=== PATIENT | male | born 1955 | race Caucasian/White ===

== ENCOUNTER 2019-07-31 06:22 | Day surgery (SDC) | payer MEDICARE, MEDICAID, SELFPAY ==
[2019-07-29 12:23] VITALS: BMI 37.9
[2019-07-31 06:44] VITALS: BP 119/91; PULSE 62; RESP 18; TEMP 36.4; O2SAT 96
[2019-07-31] MEDS: sodium chloride 0.9% 1,000 ML 30 ML IV (06:59)
--- NOTE | 2019-07-31 07:00 | ANES.PREANE2 ---
Pre-Anesthetic Assessment Pre-Anesthetic Assessment: Height/Weight: Height 1.7 m Weight 109.769 kg Temp Pulse Resp BP Pulse Ox 97.6 F 62 18 119/91 96 07/31/19 06:44 07/31/19 06:44 07/31/19 06:44 07/31/19 06:44 07/31/19 06:44 Proposed Procedure: Operation Date: 07/31/19 08:05 Proposed Procedures p Colonoscopy(Not Applicable) - Naeem Ybarra MD Last intake: Intake Last Liquid Date 07/30/19 Last Liquid Time 20:00 Last Solid Date 07/29/19 Last Solid Time 16:00 Social: Social History: Tobacco (CHEWS) and No alcohol Exam: Pre-Anes Outpt Exam: alert, oriented x 3, clear to auscultation bilaterally and regular rate & rhythm Airway: Submandibular: WNL Cervical ROM: WNL MP: 2 Dentition: Other (very poor dentation) History/ROS: No significant history except as noted Pulmonary: Pulmonary: None reported CV/HEM: CV/HEM: HTN : : None reported Hepatic: Hepatic: None reported GI: GI: GERD (occ) Metabolic: Metabolic: DM and Morbid obesity Musc/skel: Musc/skel: Lower Back Pain, OA/DJD and Weakness (right leg) Neuropsych: Neuropsych: None reported Anesthetic Plan: ASA status: 3 Anesthesia: Anesthesia Evaluation and MAC Risk of > 500 ml blood loss (7ml/kg in children): No Meds/Allergies Current Medications: Current Medications Generic Name Dose Route Start Last Admin Trade Name Freq PRN Reason Stop Dose Admin Sodium Chloride 1,000 mls @ 30 ml s/hr 07/31/19 06:45 07/31/19 06:59 Sodium Chloride 0.9% IV 08/01/19 06:44 30 mls/hr .Q24H TREVOR Administration Data Anesthesia Cardiac Studies: No Data to Display
[2019-07-31 07:22] LABS: Glucose Point of Care 111 mg/dL (70-110)
--- NOTE | 2019-07-31 07:52 | W.PM.OPSUD ---
Surgery/Procedure H&P Update DATE OF PROCEDURE: July 31, 2019 DATE H&P PERFORMED: 07/22/19 H&P UPDATE INFORMATION: No changes to prior documentation PLANNED PROCEDURE: Operation Date: 07/31/19 08:05 Proposed Procedures p Colonoscopy(Not Applicable) - Naeem Ybarra MD
[2019-07-31 08:22] VITALS: BP 102/68; PULSE 55; RESP 16; TEMP 36.2; O2SAT 98
--- NOTE | 2019-07-31 08:23 | ANE.PACU2 ---
Inpatient post-anesthesia follow up: Airway intact: Yes Vital signs: Temperature 97.6 F Pulse Rate 62 Respiratory Rate 18 Blood Pressure 119/91 Pulse Oximetry 96 Oxygen Delivery Me thod Room Air Oxygen Flow Rate Fraction of Inspir ed Oxygen Hydration adequate: Yes Nausea and vomiting: No Pain level: 1 Mental status: Baseline
[2019-07-31 08:39] VITALS: BP 114/74; PULSE 55; RESP 18; O2SAT 96
== END 2019-07-31 08:49 | disposition home or self-care (01) ==
PROVIDERS: PCP Nurse Practitioner Family; Visit Provider Surgery
PROC: 0DJD8ZZ Inspection of Lower Intestinal Tract, Via Natural or Artificial Opening Endoscopic (ICD-10-PCS; CPT 45378; principal; 2019-07-31 08:00)
DX: Z12.11 Encounter for screening for malignant neoplasm of colon (principal); Z86.010 Personal history of colon polyps; K57.30 Diverticulosis of large intestine without perforation or abscess without bleeding; K64.8 Other hemorrhoids; D12.2 Benign neoplasm of ascending colon; D12.5 Benign neoplasm of sigmoid colon; I10 Essential (primary) hypertension; K21.9 Gastro-esophageal reflux disease without esophagitis; E11.9 Type 2 diabetes mellitus without complications; M19.90 Unspecified osteoarthritis, unspecified site; E66.01 Morbid (severe) obesity due to excess calories; Z68.37 Body mass index [BMI] 37.0-37.9, adult; E78.5 Hyperlipidemia, unspecified
CPT/HCPCS: 12345; 36416; 45385; 82962; 88305; J2001; J2704; J7030

== ENCOUNTER 2020-01-26 13:49 | Emergency (ER) | payer MEDICARE, MEDICAID, SELFPAY ==
[2020-01-26 14:23] VITALS: BP 128/86; PULSE 69; RESP 14; TEMP 36.8; O2SAT 96; BMI 37.0
--- NOTE | 2020-01-26 14:38 | ECG_ITS ---
[facility] Test Date: 2020-01-26 Pat Name: Edilberto Noriega Department: Room: Gender: Male [employer] Attorney: CRISTINE : 1955 Requested By: Steffi Lee Order Number: [id number] Salena MD: Hood Appiah M.D. Measurements Intervals [place] Rate: 65 P: 50 MS: 184 QRS: -27 QRSD: 93 T: 80 QT: 397 QTc: 413 Interpretive Statements SINUS RHYTHM BORDERLINE LEFT AXIS DEVIATION [QRS AXIS < -20] NONSPECIFIC T-WAVE ABNORMALITY Compared to ECG 11/27/2018 19:45:54 T-wave abnormality now present Electronically Signed On 01-26-2020 16:37:14 ENDODONTIST by Hood Appiah M.D. [id number]
--- NOTE | 2020-01-26 14:38 | XR_ITS ---
WS: [id number] XR chest 1V portable [id number] REASON FOR EXAM: cp FINDINGS: The chest is unchanged compared to previous examination of 11/27/2018. The heart and mediastinum are within normal limits for age. Calcified granulomatous disease is seen in both hemithoraces. No active pulmonary parenchymal or pleu ral disease is noted. Anterior column stimulator in place mid thoracic level. Left shoulder arthroplasty. XR/XR chest 1V portable [id number] IMPRESSION: No acute abnormality.
--- NOTE | 2020-01-26 14:38 | US_ITS ---
WS: [id number] ABDOMINAL ULTRASOUND LIMITED REASON FOR VISIT: abd pain TECHNIQUE: Grayscale and Doppler ultrasound examination of the abdomen. FINDINGS: Pancreas: Not diagnostically imaged. Abdominal aorta and IVC: Normal where visualized. Liver: Liver measures 15.4 cm in length. Liver moderately echogenic. Portal vein is patent. Gallbladder: Gallbladder wall thickness measures 0.3 mm. Common bile duct is 2.5 mm in diameter. No c alculi identified. Right kidney: Right kidney measures 11.8 cm x 3.8 cm x 4.7 cm. Right kidney cortex measures 1.1 cm. N o hydronephrosis or calculus. Sonolucent mass 3.81 x 3.78 cm, thin-walled with good through transmiss ion. No free fluid. US/US gall bladder [id number] IMPRESSION: Possible fatty infiltration of the liver versus unspecified hepatitis. Correlat ion with liver enzymes needed. No findings of gallbladder disease. Incidental right renal cyst as above.
--- NOTE | 2020-01-26 14:40 | ED_ITS ---
HPI - Abdominal Pain General: Chief Complaint: Abdominal Pain Stated Complaint: ABDOMINAL PAIN Time Seen by Provider: 01/26/20 14:21 Source: patient Mode of arrival: ambulatory Limitations: no limitations History of Present Illness: HPI narrative: 64-year-old male states over the last week he has had right upper quadrant pain that radiates to his shoulder and between his shoulders. He states it is sharp pain has been constant nature. States pain is currently 7 out of 10. Denies any worsening or improving factors. He has had no vomiting or diarrhea. MD elicited complaint: abdominal pain Associated Symptoms: Denies chills, dysuria and fever(s) Review of Systems Const: Denies: fever(s), chills, body aches or change in appetite Eyes: Denies: blurry vision or eye discomfort ENMT: Denies: throat pain or dental pain Card: Reports: chest pain Resp: Denies: dyspnea GI: Reports: abdominal pain : Denies: dysuria Musc: Denies: neck pain or back pain Skin/Breast: Denies: rash Neuro: Denies: headache(s) Psych: Denies: depression Beto/Lymph: Denies: easy bruising All/Imm: Denies: urticaria Physical Exam Const: COMMON NORMALS: no acute distress, patient oriented x3 and healthy appearing HENMT: COMMON NORMALS: normocephalic and atraumatic HEAD & SCALP: normocephalic and atraumatic Eye: COMMON NORMALS: Equal, round and reactive pupils present and EOMs intact bilaterally PUPIL: Yes Equal, round and reactive pupils present Neck/C-Spine: COMMON NORMALS: full ROM and supple Chest: COMMONS NORMALS: normal inspection of the chest and normal palpation of entire chest wall Resp: COMMON NORMALS: normal respiratory effort, No retractions, No use of accessory muscles and clear to auscultation bilaterally AUSCULTATION: clear to auscultation bilaterally Cardio: COMMON NORMALS: regular rate, regular rhythm and No murmurs present (Cardio) RATE: regular rate RHYTHM: regular rhythm GI: COMMON NORMALS: Normal to inspection, nondistended, normoactive bowel sounds present, Soft to palpation, non-tender and no masses PALPATION: Yes Soft to palpation and Yes Tenderness to palpation present (GI) Details: RUQ Extremity: COMMON NORMALS: normal to inspection and full ROM Neuro: COMMON NORMALS: patient oriented x3, moves all extremities and no focal motor deficits Psych: COMMON NORMALS: mental status grossly normal, Normal thought process present and cooperative THOUGHT PROCESS: Normal thought process present Skin: COMMON NORMALS: no rashes or lesions noted and no wounds GENERAL SKIN EXAM: no rashes or lesions noted Course Vital Signs: Vital signs: Vital Signs Temperature 98.3 F 01/26/20 14:23 Pulse Rate 69 01/26/20 14:23 Respiratory Rate 20 H 01/26/20 14:55 Blood Pressure 128/86 01/26/20 14:23 Pulse Oximetry 96 01/26/20 14:55 MDM - Abdominal Pain MDM Narrative: Medical decision making narrative: Patient presents here with abdominal pain along with back pain. He is tender in his back and his pain seem to be worse by movement that he states anytime he reaches backwards his pain worsens. His ultrasound here is negative no signs of acute abdomen. Patient has no signs of aortic dissection and his troponins are negative. We will place him on muscle relaxants and he is to follow-up his PCP in 2 to 4 days. Patient is return if worsening. He understands agrees to plan. Lab Data: Labs: Lab Results 01/26/20 01/26/20 01/26/20 Range/Units 14:45 14:45 14:45 WBC 8.2 (4.0-10.0) 10^3/ uL RBC 4.61 (4.1-5.3) 10^6/u L Hgb 14.8 (11.7-16.6) g/dL Hct 43.5 (42.0-52.0) % MCV 94.4 H (80-94) fL MCH 32.1 (28.0-34.0) pg MCHC 34.0 (30.0-36.0) g/dL RDW 12.2 (12.1-15.1) % Plt Count 161 (130-400) 10^3/c mm MPV 9.8 (7.4-10.4) fL Neut % (Auto) 72.2 % Lymph % (Auto) 16.1 % Gilliam % (Auto) 7.7 % Eos % (Auto) 3.2 % Baso % (Auto) 0.4 % Neut # (Auto) 5.90 (1.8-7.7) 10^3/u L Lymph # (Auto) 1.3 (0.8-4.8) 10^3/u L Gilliam # (Auto) 0.6 (0.2-0.9) 10^3/u L Eos # (Auto) 0.3 (0.0-0.8) 10^3/u L Baso # (Auto) 0.0 (0.0-0.1) 10^3/u L Nucleated RBC % (a uto) 0 % Nucleated RBCs # 0.0 /100WBC Sodium 141 (136-145) mmol/L Potassium 4.4 (3.5-5.1) mmol/L Chloride 104 (98-107) mmol/L Carbon Dioxide 27 (22-29) mmol/L Anion Gap 14.4 (5-19) BUN 10 (8-23) mg/dL Creatinine 1.2 (0.7-1.2) mg/dL GFR Calculation 61.0 L (90-130) mL/min Glucose 262 H (65-115) mg/dL Calculated Osmolal ity 300 H (285-295) mOsm/k g Calcium 8.9 (8.5-10.5) mg/dL Total Bilirubin 0.8 (0.15-1.2) mg/dL AST 18 (0-40) U/L ALT 28 (0-41) U/L Alkaline Phosphata se 85 (40-130) IU/L Troponin T Baselin e 8 (0-15) ng/L Total Protein 6.2 L (6.6-8.7) g/dL Albumin 4.4 (3.5-5.2) g/dL Globulin 1.8 (1.3-4.6) g/dL Lipase 54 (13-60) U/L Imaging Data ^: CXR: Attestation: I personally reviewed and interpreted this imaging study as follows: Radiologist's impression: [address] [address] XRay Report Signed Patient: Edilberto Noriega Unit #: [id number] : 1955 Age/Sex: 64 / M ADM Date: 01/26/20 Loc: ER Room/Bed: Attending Dr: Ordering Provider/Ordering MD: Steffi Lee MD Date of Service: 01/26/20 Procedure(s): XR chest 1V portable [id number] Accession Number(s): [id number] Report Number: [id number] WS: [id number] XR chest 1V portable [id number] REASON FOR EXAM: cp FINDINGS: The chest is unchanged compared to previous examination of 11/27/2018. The heart and mediastinum are within normal limits for age. Calcified granulomatous disease is seen in both hemithoraces. No active pulmonary parenchymal or pleural disease is noted. Anterior column stimulator in place mid thoracic level. Left shoulder arthroplasty. XR/XR chest 1V portable [id number] IMPRESSION: No acute abnormality. EKG Data ^: EKG 1: Attestation: I personally reviewed and interpreted this EKG as follows: EKG interpretation date: 01/26/20 Interpretation: nsr hr [address] or t wave abnormalities qrs 93 qtc 408 Discharge Plan Discharge Patient Disposition: Home Clinical Impression: Abdominal pain Qualifiers: Abdominal location: right upper quadrant Qualified Code(s): R10.11 - Right upper quadrant pain Back pain Qualifiers: Back pain location: thoracic back pain Condition: Stable Prescriptions: New Robaxin-750 750 mg tablet 750 mg PO Q6H Qty: 30 RF: 0 No Action lisinopril 20 mg tablet 20 mg PO DAILY RF: 0 amlodipine 10 mg tablet 10 mg PO DAILY RF: 0 metoprolol succinate 25 mg tablet extended release 24 hr 25 mg PO DAILY RF: 0 hydromorphone 4 mg tablet 4 mg PO Q6H PRN (Reason: Pain) RF: 0 Trulicity 0.75 mg/0.5 mL pen injector 0.75 mg SUBCUT DIRECTED RF: 0 omeprazole 40 mg capsule,delayed release(DR/EC) 40 mg PO DAILY RF: 0 sertraline 50 mg Tablet 50 mg PO DAILY RF: 0 rosuvastatin 10 mg tablet 10 mg PO DAILY RF: 0 Discharge Orders: Discharge Order (Routine); Ordered 01/26/20 Ordered By: Steffi Lee Referrals: York,NAVJOT Olvera [Primary Care Provider] - 1-3 days Discharge Diet: Advance as tolerated Discharge Activity: Resume usual activity Patient Instructions: Abdominal Pain (ED) Coding Level of Care Code ED Professor Of [employer] for Chg Fwd Exam Comprehensive
[2020-01-26 14:55] VITALS: RESP 20; O2SAT 96
[2020-01-26 14:55] LABS: Basophils % 0.4 %; Eosinophils # 0.3 10^3/uL (0.0-0.8); Eosinophils % 3.2 %; Hematocrit 43.5 % (42.0-52.0); Hemoglobin 14.8 g/dL (11.7-16.6); Lymphocytes # 1.3 10^3/uL (0.8-4.8); Lymphocytes % 16.1 %; Mean Corpuscular Hemoglobin 32.1 pg (28.0-34.0); Mean Corpuscular Volume 94.4 fL (80-94); Mean Platelet Volume 9.8 fL (7.4-10.4); Monocytes # 0.6 10^3/uL (0.2-0.9); Monocytes % 7.7 %; Neutrophils % 72.2 %; Nucleated Red Blood Cells % 0 %; Platelet Count 161 10^3/cmm (130-400); Red Blood Count 4.61 10^6/uL (4.1-5.3); Red Cell Distribution Width 12.2 % (12.1-15.1); White Blood Count 8.2 10^3/uL (4.0-10.0)
[2020-01-26] MEDS: morphine 4 mg/mL SDV 1 mL IVP (14:55)
[2020-01-26] MEDS: ondansetron 2 mg/ML SDV 2 mL 4 MG IVP (14:56)
[2020-01-26 15:22] LABS: Alanine Aminotransferase 28 U/L (0-41); Albumin Level 4.4 g/dL (3.5-5.2); Alkaline Phosphatase 85 IU/L (40-130); Anion Gap 14.4 (5-19); Aspartate Amino Transferase 18 U/L (0-40); Blood Urea Nitrogen 10 mg/dL (8-23); Calcium 8.9 mg/dL (8.5-10.5); Carbon Dioxide 27 mmol/L (22-29); Chloride 104 mmol/L (98-107); Globulin 1.8 g/dL (1.3-4.6); Glucose 262 mg/dL (65-115); Lipase 54 U/L (13-60); Osmolality Calculated 300 mOsm/kg (285-295); Potassium 4.4 mmol/L (3.5-5.1); Sodium 141 mmol/L (136-145); Total Bilirubin 0.8 mg/dL (0.15-1.2); Total Protein 6.2 g/dL (6.6-8.7)
[2020-01-26 15:23] LABS: Troponin(5th) Baseline 8 ng/L (0-15)
== END 2020-01-26 15:54 | disposition home or self-care (01) ==
PROVIDERS: Emergency Provider Emergency Medicine; PCP Nurse Practitioner Family
DX: R10.11 Right upper quadrant pain (principal); M54.6 Pain in thoracic spine
CPT/HCPCS: 12345; 71045; 76705; 80053; 83690; 84484; 85025; 93005; 96374; 96375; 99282; 99283; J2270; J2405

== ENCOUNTER 2020-09-17 16:39 | Emergency (ER) | payer MEDICARE, MEDICAID, SELFPAY ==
[2020-09-17] VITALS (8 sets, daily range): BP systolic 99–154; BP diastolic 59–84; PULSE 55–64; RESP 15–18; TEMP 37.1; O2SAT 94–98; BMI 37.5
--- NOTE | 2020-09-17 18:25 | CTR_ITS ---
PROCEDURE INFORMATION: Exam: CT Head Without Contrast Exam date and time: 09/17/2020 6:25 PM Age: 65 years old Clinical indication: Headache not specified; Patient HX: C/O worsening R sided head pain w lethargy since Sunday TECHNIQUE: Imaging protocol: Computed tomography of the head without contrast. Radiation optimization: All CT scans at this facility use at least one of these dose optimization techniques: automated exposure control; mA and/or kV adjustment per patient size (includes targeted exams where dose is matched to clinical indication); or iterative reconstruction. COMPARISON: [place] [id number] 05/18/2016 10:57 AM RADIATION DOSE METRICS: Total DLP (mGy-cm): 987.75 FINDINGS: Brain: Normal. No hemorrhage. Unremarkable white matter. No mass effect. Cerebral ventricles: No ventriculomegaly. Paranasal sinuses: Visualized sinuses are unremarkable. No fluid levels. Mastoid air cells: Visualized mastoid air cells are well aerated. Bones/joints: Unremarkable. No acute fracture. Soft tissues: Unremarkable. CT/CT head wo con* [id number] IMPRESSION: No acute intracranial abnormality. Radiation Dose CTDIVOL = (mGy): DLP = 987.75 (mGy-cm)
--- NOTE | 2020-09-17 18:25 | W.ED.NEUROSD ---
HPI - Neuro Symptoms/Deficit General: Chief Complaint: Neuro Symptoms/Deficit Stated Complaint: SHARP R SIDED HEAD PAIN Time Seen by Provider: 09/17/20 18:19 History of Present Illness: HPI Narrative: This patient is a 65-year-old male who presents to the emergency department with about for 5 days worth of intermittent right severe parietal headache. States the head was right at the side of his head and moves backwards. States to be randomly and get a sharp stabbing pain that is unrelenting. Patient has has been going on for about a week. Patient denies any history of headaches. Will do medical evaluation treat as needed Onset (ago): day(s) Timing confirmed by: spouse History of same: No Severity: moderate Associated symptoms: Reports headache(s); Deny chest pain, nausea or vomiting Review of Systems General: Reports: 10 or more systems reviewed and unremarkable except in HPI and below Const: Denies: fever(s), chills, body aches or fatigue Eyes: Denies: change in vision or blurry vision ENMT: Denies: throat pain, hoarseness or mouth pain Card: Denies: chest pain, palpitations, irregular heart rhythm, edema, swelling of feet/ankles or lightheadedness Resp: Denies: dyspnea, productive cough, non-productive cough, wheezing or pain on inspiration GI: Denies: abdominal pain, nausea or vomiting : Denies: flank pain, dysuria, urinary frequency, urinary urgency or urinary hesitancy Musc: Denies: neck pain, back pain, extremity pain, extremity swelling, joint pain, joint swelling, joint redness, joint warmth or limited range of motion Skin/Breast: Denies: rash, pruritus, erythema or skin tenderness Neuro: Reports: headache(s); Denies: numbness in extremities or weakness in extremities Psych: Denies: anxiety or depression Physical Exam Const: COMMON NORMALS: no acute distress, average body habitus, patient oriented x3, no limitations, healthy appearing, alert and well nourished HENMT: COMMON NORMALS: normocephalic, atraumatic, hearing grossly normal bilaterally, external ears normal, EAC's normal, TM's normal bilaterally, Normal external nose present, Normal nasal mucous membranes and turbinates present, moist oral mucous membranes, oropharynx normal, dentition normal and gingiva normal HEAD & SCALP: normocephalic and atraumatic NOSE: Normal external nose present and Normal nasal mucous membranes and turbinates present EXTERNAL EAR: Yes external ears normal EXTERNAL AUDITORY CANAL: EAC's normal TYMPANIC MEMBRANE: TM's normal bilaterally Neck/C-Spine: COMMON NORMALS: full ROM, no lymphadenopathy, supple, no meningeal signs, no JVD, Thyroid normal and No carotid bruits THYROID: Thyroid normal Chest: COMMONS NORMALS: normal inspection of the chest, normal palpation of entire chest wall, normal inspection of the breasts and normal palpation of the breasts Breast/axilla inspection: Yes normal inspection of the breasts BREAST/AXILLA PALPATION: Yes normal palpation of the breasts Resp: COMMON NORMALS: normal respiratory effort, No retractions, No use of accessory muscles, clear to auscultation bilaterally and percussion normal AUSCULTATION: clear to auscultation bilaterally PERCUSSION: percussion normal Cardio: COMMON NORMALS: no JVD, regular rate, regular rhythm, S1 normal heart sound present, S2 normal heart sound present, No gallops present (Cardio), No clicks present (Cardio), No murmurs present (Cardio), No rub (Cardio) and Peripheral pulses 2+ throughout RATE: regular rate RHYTHM: regular rhythm HEART SOUNDS: S1 normal heart sound present and S2 normal heart sound present PERIPHERAL PULSES: Peripheral pulses 2+ throughout GI: COMMON NORMALS: Normal to inspection, nondistended, normoactive bowel sounds present, Soft to palpation, non-tender, No hepatosplenomegaly present, no masses and no bruits PALPATION: Yes Soft to palpation and Yes No hepatosplenomegaly present : COMMON NORMALS: Yes no CVA tenderness BLADDER/KIDNEY EXAM: Yes no CVA tenderness Back/Pelvis: COMMON NORMALS: no CVA tenderness, thoracic and lumbar spine normal to inspection, no thoracic nor lumbar tenderness, thoraco-lumbar ROM normal and straight leg raise negative bilaterally Extremity: COMMON NORMALS: normal to inspection, full ROM, capillary refill normal, no joint enlargement, no clubbing, cyanosis or edema, no calf tenderness and no pedal edema Neuro: COMMON NORMALS: patient oriented x3, CN's II-XII intact bilaterally, moves all extremities, no focal motor deficits, no sensory deficits noted, deep tendon reflexes 2+ bilaterally and gait normal SENSORIUM/ORIENTATION: Yes alert MENINGEAL SIGNS: Yes no meningeal signs Course Reevaluation(s): Reevaluation #1: I did discuss at length with patient and family about complaints of headache. And relief with Toradol or morphine. Patient description of headache is strange. He describes it as a circular type headache but the size of his for extended area throbbing and then shooting pain becomes unbearable. Patient is concerned about being discharged [place] States his daughter lives here in town. Advised we are waiting discussed at length with neurology from [facility]. Time: 21:52 Consultations: Consultation #1: I did discuss at length with [facility] neurology Dr. Barraza about the patient's headache complaint. They recommend that we give the patient the following medications Toradol Compazine Benadryl and 2 mg of magnesium 500 cc bolus of IV fluids and monitor in the ER overnight. States the medications can be repeated within 8 hours if needed. Concerning for possible Nummular headache type symptoms. Time: 21:53 Consultation #2: I did discuss at length with Dr. Hackett hospitalist. She agrees to admit the patient for observation for regimen. For patient's headache. Patient has no signs or symptoms of acute glaucoma or temporal arteritis. Time: 21:53 Vital Signs: Vital signs: Vital Signs Temperature 98.8 F 09/17/20 17:09 Pulse Rate 55 L 09/17/20 21:18 Respiratory Rate 18 09/17/20 21:18 Blood Pressure 131/75 09/17/20 20:23 Pulse Oximetry 98 09/17/20 21:18 MDM - Neuro Symptoms/Deficit MDM Narrative: Medical decision making narrative: I did discuss at length with patient and family about complaints of headache. And relief with Toradol or morphine. Patient description of headache is strange. He describes it as a circular type headache but the size of his for extended area throbbing and then shooting pain becomes unbearable. Patient is concerned about being discharged home [place] States his daughter lives here in town. Advised we are waiting discussed at length with neurology from [facility]. I did discuss at length with [facility] neurology Dr. Barraza about the patient's headache complaint. They recommend that we give the patient the following medications Toradol Compazine Benadryl and 2 mg of magnesium 500 cc bolus of IV fluids and monitor in the ER overnight. States the medications can be repeated within 8 hours if needed. Concerning for possible Nummular headache type symptoms. I did discuss at length with Dr. Hackett hospitalist. She agrees to admit the patient for observation for regimen. For patient's headache. Patient has no signs or symptoms of acute glaucoma or temporal arteritis. Medical Records: Attestation: I reviewed the patient's medical records. Lab Data: Attestation: I reviewed the patient's lab results. Labs: Lab Results 09/17/20 09/17/20 09/17/20 Range/Units 19:00 19:00 19:00 WBC 8.2 (4.0-10.0) 10^3/ uL RBC 4.77 (4.1-5.3) 10^6/u L Hgb 15.3 (11.7-16.6) g/dL Hct 45.6 (42.0-52.0) % MCV 95.6 H (80-94) fL MCH 32.1 (28.0-34.0) pg MCHC 33.6 (30.0-36.0) g/dL RDW 12.7 (12.1-15.1) % Plt Count 172 (130-400) 10^3/c mm MPV 9.2 (7.4-10.4) fL Neut % (Auto) 66.3 % Lymph % (Auto) 20.0 % Vil[place] % (Auto) 9.6 % Eos % (Auto) 3.2 % Baso % (Auto) 0.5 % Neut # (Auto) 5.45 (1.8-7.7) 10^3/u L Lymph # (Auto) 1.6 (0.8-4.8) 10^3/u L [place] # (Auto) 0.8 (0.2-0.9) 10^3/u L Eos # (Auto) 0.3 (0.0-0.8) 10^3/u L Baso # (Auto) 0.0 (0.0-0.1) 10^3/u L Nucleated RBC % (a uto) 0 % Nucleated RBCs # 0.0 /100WBC ESR 12 H (0-10) mm/hr Sodium 140 (136-145) mmol/L Potassium 3.9 (3.5-5.1) mmol/L Chloride 104 (98-107) mmol/L Carbon Dioxide 27 (22-29) mmol/L Anion Gap 12.9 (5-19) BUN 11 (8-23) mg/dL Creatinine 1.3 H (0.7-1.2) mg/dL GFR Calculation 55.4 L (90-130) mL/min Glucose 98 (65-115) mg/dL Calculated Osmolal ity 289 (285-295) mOsm/k g Calcium 8.7 (8.5-10.5) mg/dL Total Bilirubin 0.9 (0.15-1.2) mg/dL AST 23 (0-40) U/L ALT 33 (0-41) U/L Alkaline Phosphata se 80 (40-130) IU/L C-Reactive Protein 1.1 (0.0-4.9) mg/L Total Protein 6.9 (6.6-8.7) g/dL Albumin 4.4 (3.5-5.2) g/dL Globulin 2.5 (1.3-4.6) g/dL Imaging Data^: CT Head: Attestation: I personally reviewed and interpreted this imaging study as follows: Radiologist's impression: FINDINGS: Brain: Normal. No hemorrhage. Unremarkable white matter. No mass effect. Cerebral ventricles: No ventriculomegaly. Paranasal sinuses: Visualized sinuses are unremarkable. No fluid levels. Mastoid air cells: Visualized mastoid air cells are well aerated. Bones/joints: Unremarkable. No acute fracture. Soft tissues: Unremarkable. CT/CT head wo con* [id number] IMPRESSION: No acute intracranial abnormality. Discharge Plan Discharge Patient Disposition: Placed in Observation Clinical Impression: Severe headache, Nummular headache Condition: Stable Prescriptions: No Action lisinopril 20 mg tablet 20 mg PO DAILY RF: 0 amlodipine 10 mg tablet 10 mg PO DAILY RF: 0 metoprolol succinate 25 mg tablet extended release 24 hr 25 mg PO DAILY RF: 0 hydromorphone 4 mg tablet 4 mg PO Q6H PRN (Reason: Pain) RF: 0 Trulicity 0.75 mg/0.5 mL pen injector 0.75 mg SUBCUT DIRECTED RF: 0 omeprazole 40 mg capsule,delayed release(DR/EC) 40 mg PO DAILY RF: 0 sertraline 50 mg Tablet 50 mg PO DAILY RF: 0 rosuvastatin 10 mg tablet 10 mg PO DAILY RF: 0 Referrals: May York FNP [Primary Care Provider] - Coding Level of Care Code ED 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
[2020-09-17 19:10] LABS: Basophils % 0.5 %; Eosinophils # 0.3 10^3/uL (0.0-0.8); Eosinophils % 3.2 %; Hematocrit 45.6 % (42.0-52.0); Hemoglobin 15.3 g/dL (11.7-16.6); Lymphocytes # 1.6 10^3/uL (0.8-4.8); Mean Corpuscular HGB Conc 33.6 g/dL (30.0-36.0); Mean Corpuscular Hemoglobin 32.1 pg (28.0-34.0); Mean Corpuscular Volume 95.6 fL (80-94); Mean Platelet Volume 9.2 fL (7.4-10.4); Monocytes # 0.8 10^3/uL (0.2-0.9); Monocytes % 9.6 %; Neutrophils # 5.45 10^3/uL (1.8-7.7); Neutrophils % 66.3 %; Nucleated Red Blood Cells % 0 %; Platelet Count 172 10^3/cmm (130-400); Red Blood Count 4.77 10^6/uL (4.1-5.3); Red Cell Distribution Width 12.7 % (12.1-15.1); White Blood Count 8.2 10^3/uL (4.0-10.0)
[2020-09-17] MEDS: ketorolac 30 mg/mL INJ 15 MG IVP ×2 (19:12→22:00)
[2020-09-17] MEDS: ondansetron 2 mg/ML SDV 2 mL 4 MG IVP ×2 (19:12→21:16)
[2020-09-17 19:29] LABS: Alanine Aminotransferase 33 U/L (0-41); Albumin Level 4.4 g/dL (3.5-5.2); Alkaline Phosphatase 80 IU/L (40-130); Anion Gap 12.9 (5-19); Aspartate Amino Transferase 23 U/L (0-40); Blood Urea Nitrogen 11 mg/dL (8-23); C Reactive Protein 1.1 mg/L (0.0-4.9); Calcium 8.7 mg/dL (8.5-10.5); Carbon Dioxide 27 mmol/L (22-29); Chloride 104 mmol/L (98-107); Globulin 2.5 g/dL (1.3-4.6); Glomerular Filtration Rate 55.4 mL/min (90-130); Glucose 98 mg/dL (65-115); Osmolality Calculated 289 mOsm/kg (285-295); Potassium 3.9 mmol/L (3.5-5.1); Sodium 140 mmol/L (136-145); Total Bilirubin 0.9 mg/dL (0.15-1.2); Total Protein 6.9 g/dL (6.6-8.7)
[2020-09-17 19:54] LABS: Erythrocyte Sedimentation Rate 12 mm/hr (0-10)
[2020-09-17] MEDS: morphine 4 mg/mL SDV 1 mL 2 MG IVP (21:15)
[2020-09-17] MEDS: acetaminophen 325 mg Tablet 650 MG PO (21:59)
[2020-09-17] MEDS: prochlorperazine 10 mg Tablet PO (21:59)
[2020-09-17] MEDS: diphenhydrAMINE 50 mg/mL SDV 1mL 25 MG IVP (22:00)
[2020-09-17] MEDS: magnesium sulfate premix 2 GM/50 ML PIGGYBACK IV (22:01)
[2020-09-17] MEDS: sodium chloride 0.9% 500 ML IV (22:57)
--- NOTE | 2020-09-17 23:30 | PM.HP ---
Providers/Chief Complaint Admitting Physician: Sabrina Hackett MD Primary Care Provider: May York, ELECTROPLATER AUTOMATIC Chief Complaint: SHARP R SIDED HEAD PAIN History of Present Illness Edilberto Noriega is a 65 year old male with PMH HTN, GERD, HLD, DM presenting to the hospital today with right sided frontal and temporal pain that started 6 days ago. Sudden pain, 8/10 intensity, band like in the right temporal and frontal areas. No apparent triggers, no clear relieving factors, no past h/o similar pain. No visual loss or vision trouble. No vesicularrash or h/o shingles in this dermatome. Last zoster rash over abdomen this past winter. no temporal tenderness,.no focal neuro deficits. no fever. Not vaccinated for COVID 19. Review of Systems General: Reports: 10 or more systems reviewed and unremarkable except in HPI and below Const: Denies: fever(s), chills or body aches Eyes: Denies: change in vision, blurry vision or photophobia ENMT: Reports: hoarseness; Denies: throat pain, enlarged tonsils, odynophagia or nasal congestion Card: Denies: chest pain, palpitations, irregular heart rhythm, edema, swelling of feet/ankles, lightheadedness, pre-syncope, dyspnea on exertion or orthopnea Resp: Denies: dyspnea, productive cough, non-productive cough, wheezing, stridor, pain on inspiration, change in phlegm color, hemoptysis or chest congestion GI: Denies: abdominal pain, nausea, vomiting, hematemesis, coffee ground emesis, dysphagia, heartburn, diarrhea, constipation, GI cramping, change in stool character, hematochezia or melena : Denies: flank pain, dysuria, urinary frequency, urinary urgency, urinary hesitancy or hematuria Musc: Denies: neck pain, back pain, extremity pain, joint swelling, joint warmth or deformity Neuro: Reports: headache(s); Denies: numbness in extremities, weakness in extremities, sensory changes, difficulty walking, frequent falls, dizziness, vertigo, behavioral changes, Slurred speech present or seizure-like activity Psych: Denies: anxiety, depression, suicidal ideation or homicidal ideation Endo: Denies: polyuria, polydipsia, tired all the time, cold intolerance or hot flashes Beto/Lymph: Denies: easy bruising or easy bleeding Medications/Allergies Home Medications Medication Instructions Recorded Confirmed Last Taken Type amlodipine 10 mg PO DAILY 07/29/19 09/17/20 09/16/20 History hydromorphone 4 mg PO Q6H PRN 07/29/19 09/17/20 09/17/20 History lisinopril 20 mg PO DAILY 07/29/19 09/17/20 09/17/20 History metoprolol succinate 25 mg PO DAILY 07/29/19 09/17/20 09/17/20 History Trulicity 0.75 mg SUBCUT DIRECTED 07/31/19 09/17/20 09/14/20 History omeprazole 40 mg PO DAILY 01/26/20 09/17/20 09/17/20 History rosuvastatin 10 mg PO DAILY 01/26/20 09/17/20 09/17/20 History sertraline 50 mg PO DAILY 01/26/20 09/17/20 09/17/20 History Allergies Allergy/AdvReac Type Severity Reaction Status Date / Time sulfamethoxazole Allergy ALGY-Rash Verified 07/29/19 12:26 [From Bactrim] trimethoprim [From Bactrim] Allergy ALGY-Rash Verified 07/29/19 12:26 PFSH Acute PFSH: Medical History (Updated 09/18/20 @ 07:02 by Sabrina Hackett MD) Diabetes Hypertension Vitals/I&O/Wt Last Vital Signs Temp 98.8 F 09/17/20 17:09 Pulse 65 09/18/20 04:27 Resp 16 09/18/20 04:27 BP 105/63 09/18/20 04:27 Pulse Ox 97 09/18/20 04:27 Weight last 48 hrs Weight 108.862 kg Physical Exam Narrative: EXAM NARRATIVE: General: No acute distress, AO x3 HEENT: PERRLA, pupils bilaterally equal and reactive, pallors not present Chest: Normal vesicular breath sounds, no added sounds, equal good air entry bilaterally CVS: S1-S2 regular, no murmurs, no tachycardia, no gallops, no rubs Abdomen: Soft, nontender, no organomegaly, bowel sounds present Neuro: No focal deficits, no facial deformity, AO x3, power 5/5 in all limbs Extremities: no edema, cyanosis or clubbing Data : 09/17/20 19:00 07/16/21 19:00 A&P Assessment and plan (1) Severe headache: CT head without signs of acute CVA. No evidence of SAH. Case was discussed by Dr. Jain from the ER with neurologist Dr. Barraza at [facility]. Nummular headache is a differential, it was recommended that patient be given a trial of IV fluid Toradol, Compazine, Benadryl and magnesium which he has received Neurology recommended observation overnight to assess for response to treatment. Monitor blood pressure closely ESR is not grossly elevated, no visual complaints, no temporal artery tenderness, less concerning for temporal arteritis overall. Check Covid PCR. Patient does not endorse any respiratory symptoms at this time. He is saturating 97% on room air. Status: Acute Attestations Medical Necessity Statement*: Observation admission as described above. 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
[2020-09-18 00:51] VITALS: BP 114/68; PULSE 57; RESP 18; O2SAT 94
[2020-09-18 03:01] VITALS: BP 122/78; PULSE 54; RESP 18; O2SAT 98
[2020-09-18 04:27] VITALS: BP 105/63; PULSE 65; RESP 16; O2SAT 97
--- NOTE | 2020-09-18 07:12 | PM.DCS ---
Discharge Providers Date of Admission: September Date of Discharge: September 18, 2020 Attending Provider at Discharge: Sabrina Hackett MD Primary Care Provider: NAVJOT Milian Diagnoses at Discharge Discharge Diagnosis (1) Severe headache: Status: Acute Reason for Visit Reason for Visit: SHARP R SIDED HEAD PAIN Hospital Course Hospital Course Please see my dictated H&P from last night. Briefly patient presented with severe headache that started around 6 days ago the right temporal and frontal areas. Findings were discussed by ER physician with headache specialist at [facility] who was concerned about nummular headache. Patient was given a trial of 5 800 cc of IV fluid bolus, IV magnesium, Benadryl and Compazine. His headache resolved completely and has not recurred since overnight. CT of the head did not show any subacute hemorrhage or stroke. No concerning signs for giant cell arteritis. Vision is intact. No vomiting photophobia to raise concern for raised intracranial pressure. Patient is being discharged this morning in stable to improved condition. Recommended to follow-up with PCP and/or headache specialist in [place]. His Covid PCR remains pending at the time of discharge, follow-up with PCP. 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 Discharge Data Data Completed and Pending: Completed Studies During Hospitalization Category Date Time Status CT head wo con* 7 [id number] Stat Cat Scan 09/17/20 18:25 Completed Pending at discharge Category Date Time Status [facility] SARS-CoV-2 RNA Stat Lab 09/18/20 00:01 Received Labs from last 24 hours 09/18/20 09/18/20 09/17/20 00:01 00:01 19:00 WBC 8.2 RBC 4.77 Hgb 15.3 Hct 45.6 MCV 95.6 H MCH 32.1 MCHC 33.6 RDW 12.7 Plt Count 172 MPV 9.2 Neut % (Auto) 66.3 Lymph % (Auto) 20.0 [place] % (Auto) 9.6 Eos % (Auto) 3.2 Baso % (Auto) 0.5 Neut # (Auto) 5.45 Lymph # (Auto) 1.6 [place] # (Auto) 0.8 Eos # (Auto) 0.3 Baso # (Auto) 0.0 Nucleated RBC % (a uto) 0 Nucleated RBCs # 0.0 ESR Sodium Potassium Chloride Carbon Dioxide Anion Gap BUN Creatinine GFR Calculation Glucose Calculated Osmolal ity Calcium Total Bilirubin AST ALT Alkaline Phosphata se C-Reactive Protein Total Protein Albumin Globulin Nasal/Oral COVID-1 9 PCR Cancelled SARS-CoV-2 RNA (RT -PCR) Pending 09/17/20 09/17/20 19:00 19:00 WBC RBC Hgb Hct MCV MCH MCHC RDW Plt Count MPV Neut % (Auto) Lymph % (Auto) [place] % (Auto) Eos % (Auto) Baso % (Auto) Neut # (Auto) Lymph # (Auto) [place] # (Auto) Eos # (Auto) Baso # (Auto) Nucleated RBC % (a uto) Nucleated RBCs # ESR 12 H Sodium 140 Potassium 3.9 Chloride 104 Carbon Dioxide 27 Anion Gap 12.9 BUN 11 Creatinine 1.3 H GFR Calculation 55.4 L Glucose 98 Calculated Osmolal ity 289 Calcium 8.7 Total Bilirubin 0.9 AST 23 ALT 33 Alkaline Phosphata se 80 C-Reactive Protein 1.1 Total Protein 6.9 Albumin 4.4 Globulin 2.5 Nasal/Oral COVID-1 9 PCR SARS-CoV-2 RNA (RT -PCR) Addt'l Data from Hospital Stay: Laboratory Results WBC 8.2 10^3/uL (4.0- 10.0) 09/17/20 19:00 RBC 4.77 10^6/uL (4.1 -5.3) 09/17/20 19:00 Hgb 15.3 g/dL (11.7-1 6.6) 09/17/20 19:00 Hct 45.6 % (42.0-52.0 ) 09/17/20 19:00 MCV 95.6 fL (80-94) H 09/17/20 19:00 MCH 32.1 pg (28.0-34. 0) 09/17/20 19:00 MCHC 33.6 g/dL (30.0-3 6.0) 09/17/20 19:00 RDW 12.7 % (12.1-15.1 ) 09/17/20 19:00 Plt Count 172 10^3/cmm (130 -400) 09/17/20 19:00 MPV 9.2 fL (7.4-10.4) 09/17/20 19:00 Neut % (Auto) 66.3 % 09/17/20 19:00 Lymph % (Auto) 20.0 % 09/17/20 19:00 [place] % (Auto) 9.6 % 09/17/20 19:00 Eos % (Auto) 3.2 % 09/17/20 19:00 Baso % (Auto) 0.5 % 09/17/20 19:00 Neut # (Auto) 5.45 10^3/uL (1.8 -7.7) 09/17/20 19:00 Lymph # (Auto) 1.6 10^3/uL (0.8- 4.8) 09/17/20 19:00 [place] # (Auto) 0.8 10^3/uL (0.2- 0.9) 09/17/20 19:00 Eos # (Auto) 0.3 10^3/uL (0.0- 0.8) 09/17/20 19:00 Baso # (Auto) 0.0 10^3/uL (0.0- 0.1) 09/17/20 19:00 Nucleated RBC % (a uto) 0 % 09/17/20 19:00 Nucleated RBCs # 0.0 /100WBC 09/17/20 19:00 ESR 12 mm/hr (0-10) H 09/17/20 19:00 Sodium 140 mmol/L (136-1 45) 09/17/20 19:00 Potassium 3.9 mmol/L (3.5-5 .1) 09/17/20 19:00 Chloride 104 mmol/L (98-10 7) 09/17/20 19:00 Carbon Dioxide 27 mmol/L (22-29) 09/17/20 19:00 Anion Gap 12.9 (5-19) 09/17/20 19:00 BUN 11 mg/dL (8-23) 09/17/20 19:00 Creatinine 1.3 mg/dL (0.7-1. 2) H 09/17/20 19:00 GFR Calculation 55.4 mL/min (90-1 30) L 09/17/20 19:00 Glucose 98 mg/dL (65-115) 09/17/20 19:00 Calculated Osmolal ity 289 mOsm/kg (285- 295) 09/17/20 19:00 Calcium 8.7 mg/dL (8.5-10 .5) 09/17/20 19:00 Total Bilirubin 0.9 mg/dL (0.15-1 .2) 09/17/20 19:00 AST 23 U/L (0-40) 09/17/20 19:00 ALT 33 U/L (0-41) 09/17/20 19:00 Alkaline Phosphata se 80 IU/L (40-130) 09/17/20 19:00 C-Reactive Protein 1.1 mg/L (0.0-4.9 ) 09/17/20 19:00 Total Protein 6.9 g/dL (6.6-8.7 ) 09/17/20 19:00 Albumin 4.4 g/dL (3.5-5.2 ) 09/17/20 19:00 Globulin 2.5 g/dL (1.3-4.6 ) 09/17/20 19:00 Nasal/Oral COVID-1 9 PCR Cancelled 09/18/20 00:[address] 09/17/20 18:25 IMPRESSION: No acute intracranial abnormality. Radiation Dose CTDIVOL = (mGy): DLP = 987.75 (mGy-cm) Vitals: Last Vital Signs Temp 98.8 F 09/17/20 17:09 Pulse 65 09/18/20 04:27 Resp 16 09/18/20 04:27 BP 105/63 09/18/20 04:27 Pulse Ox 97 09/18/20 04:27 Discharge Plan Discharge Patient Disposition: Home Clinical Impression: Severe headache, Nummular headache Condition: Stable Prescriptions: New ketorolac 10 mg Tablet 10 mg PO Q12H PRN (Reason: Moderate Pain) 7 Days Qty: 15 RF: 0 Zofran 4 mg tablet 4 mg PO Q8H PRN (Reason: nausea and vomiting) 7 Days Qty: 20 RF: 0 prochlorperazine maleate 5 mg tablet 5 mg PO Q8H PRN (Reason: headache) 7 Days Qty: 20 RF: 0 Continued lisinopril 20 mg tablet 20 mg PO DAILY RF: 0 metoprolol succinate 25 mg tablet extended release 24 hr 25 mg PO DAILY RF: 0 hydromorphone 4 mg tablet 4 mg PO Q6H PRN (Reason: Pain) RF: 0 Trulicity 0.75 mg/0.5 mL pen injector 0.75 mg SUBCUT DIRECTED RF: 0 omeprazole 40 mg capsule,delayed release(DR/EC) 40 mg PO DAILY RF: 0 sertraline 50 mg Tablet 50 mg PO DAILY RF: 0 rosuvastatin 10 mg tablet 10 mg PO DAILY RF: 0 Changed amlodipine 10 mg tablet 5 mg PO DAILY Qty: 0 RF: 0 Discharge Orders: Discharge ED (Routine); Ordered 09/18/20 Ordered By: Sabrina Hackett Referrals: May York FNP [Primary Care Provider] - 1-3 days [facility] [Other] Kasey Saunders MD [Physician] - 2 weeks ([facility] ) Patient Instructions: Opioid Safety Activity Restrictions/Additional Instructions: In case unable to make appointment with Dr. Saunders, other options at [facility] : [facility] neurology clinic [facility] Neurology [address] [place] [address], [address] [place] [id number] Discharge Attestations Time Spent in Discharge Care*: less than 30 min Quality Metrics Clinical Quality Measures During this hospital stay, did patient experience: None Coding Level of Care Code Acute Chg FW DC note Diagnoses Severe headache R51.9
[2020-09-18 08:00] VITALS: BP 102/58; PULSE 48; RESP 15; O2SAT 95
[2020-09-18] MEDS: pantoprazole DR 40 mg Tablet PO (08:29)
[2020-09-19 14:17] LABS: Quest SARS-CoV-2 RNA NOT DETECTED (NOT DETECTED)
--- NOTE | 2020-09-19 17:41 | PC.NURSE ---
left message in attempts to give pt COVID results
== END 2020-09-18 09:49 | disposition home or self-care (01) ==
PROVIDERS: Emergency Provider Emergency Medicine; PCP Nurse Practitioner Family; Visit Provider Student in an Organized Health Care Education/Training Program
DX: G44.89 Other headache syndrome (principal); Z20.822 Contact with and (suspected) exposure to COVID-19
CPT/HCPCS: 70450; 80053; 85025; 85651; 86140; 87635; 96365; 96375; 96376; 99284; J1200; J1885; J2270; J2405; J3475; J7040; Q0164

== ENCOUNTER 2020-12-15 12:55 | Outpatient (CLI) | payer MEDICARE, MEDICAID, SELFPAY | END 2020-12-15 12:56 | disposition home or self-care (01) | LOC: SLEEP 12:56 | PROVIDERS: PCP Nurse Practitioner Family; Visit Provider Anesthesiology Pain Medicine | DX: G47.10 Hypersomnia, unspecified (principal) | CPT/HCPCS: G0399 ==

== ENCOUNTER 2021-06-29 16:46 | Outpatient (CLI) | payer MEDICARE, MEDICAID, SELFPAY ==
--- NOTE | 2021-06-29 17:03 | XRR_ITS ---
PROCEDURE INFORMATION: Exam: XR Right Knee Exam date and time: 06/29/2021 5:03 PM Age: 66 years old Clinical indication: Pain; Knee; Right; Additional info: Pain in right knee, chronic TECHNIQUE: Imaging protocol: XR Right knee. Views: 3 views. COMPARISON: CT Low Extremity w RIGHT [id number] 09/20/2018 2:15 PM FINDINGS: Bones/joints: Mild tricompartmental osteoarthritis of the knee. Soft tissues: Normal. XR/XR knee RT 3V* [id number] IMPRESSION: Mild tricompartmental osteoarthritis of the knee.
== END 2021-06-29 16:47 | disposition home or self-care (01) ==
PROVIDERS: PCP Nurse Practitioner Family; Visit Provider Nurse Practitioner Family
DX: M25.561 Pain in right knee (principal); M17.11 Unilateral primary osteoarthritis, right knee
CPT/HCPCS: 73562

== ENCOUNTER 2021-07-08 17:55 | Emergency (ER) | payer MEDICARE, MEDICAID, SELFPAY ==
[2021-07-08 18:45] VITALS: BP 193/99; PULSE 75; RESP 20; O2SAT 97; BMI 36.0
--- NOTE | 2021-07-08 19:05 | CTR_ITS ---
PROCEDURE INFORMATION: Exam: CT Abdomen And Pelvis Without Contrast Exam date and time: 07/08/2021 7:23 PM Age: 66 years old Clinical indication: Prior surgery; Surgery date: 6+ months; Surgery type: Turp, l-sp, stim; Patient HX: C/O chronic back pain now w dysuria; Additional info: Back pain, dysuria, urinary obstruction TECHNIQUE: Imaging protocol: Computed tomography of the abdomen and pelvis without contrast. Radiation optimization: All CT scans at this facility use at least one of these dose optimization techniques: automated exposure control; mA and/or kV adjustment per patient size (includes targeted exams where dose is matched to clinical indication); or iterative reconstruction. COMPARISON: US Abdomen* [id number] 07/08/2014 7:49 PM RADIATION DOSE METRICS: Total DLP (mGy-cm): FINDINGS: Tubes, catheters and devices: Partially visible thoracic epidural stimulator device. Liver: Normal. No mass. Gallbladder and bile ducts: Normal. No calcified stones. No ductal dilation. Pancreas: Normal. No ductal dilation. Spleen: Normal. No splenomegaly. Adrenal glands: Normal. No mass. Kidneys and ureters: Tiny bilateral nonobstructing renal stones. Significant bilateral renal cortical atrophy. Simple bilateral renal cortical cysts, largest of which is in the right lower pole measuring 4.4 cm x 4 cm in the transaxial plane. No dedicated imaging follow-up recommended. Negative for hydroureteronephrosis. Stomach and bowel: Diverticulosis coli. No inflammatory bowel wall thickening. Negative for bowel obstruction or perforation. Appendix: No evidence of appendicitis. Intraperitoneal space: Unremarkable. No free air. No significant fluid collection. Vasculature: Unremarkable. No abdominal aortic aneurysm. Lymph nodes: Unremarkable. No enlarged lymph nodes. Urinary bladder: Bladder decompressed. Reproductive: Mild severity prostatomegaly. Bones/joints: L4-L5 posterior lumbar spine fusion without complication. Unremarkable lumbar spine alignment. No fractures. Soft tissues: Unremarkable. CT/CT kidney stone [id number] IMPRESSION: No acute abdominopelvic pathology. COMMENTS: Consistent with the [employer]'s Incidental Findings Committee white paper (J Am Jennifer Radiol 2018): Any incidental renal lesion less than 1 cm or classified as too small to characterize, or any incidental cystic renal lesion characterized as simple-appearing, is likely benign. No follow-up imaging is recommended for these lesions per consensus recommendations based on imaging criteria.
[2021-07-08 19:27] VITALS: BP 142/75; PULSE 79; RESP 20; O2SAT 94
[2021-07-08 19:28] LABS: Basophils % 0.2 %; Eosinophils # 0.1 10^3/uL (0.0-0.8); Eosinophils % 0.3 %; Hematocrit 43.8 % (42.0-52.0); Hemoglobin 15.3 g/dL (11.7-16.6); Lymphocytes # 0.9 10^3/uL (0.8-4.8); Lymphocytes % 5.6 %; Mean Corpuscular HGB Conc 34.9 g/dL (30.0-36.0); Mean Corpuscular Hemoglobin 32.9 pg (28.0-34.0); Mean Corpuscular Volume 94.2 fl (80-94); Mean Platelet Volume 9.8 fL (7.4-10.4); Monocytes # 1.5 10^3/uL (0.2-0.9); Monocytes % 9.7 %; Neutrophils # 13.24 10^3/uL (1.8-7.7); Neutrophils % 83.8 %; Nucleated Red Blood Cells % 0 %; Platelet Count 159 10^3/cmm (130-400); Red Blood Count 4.65 10^6/uL (4.1-5.3); Red Cell Distribution Width 12.6 % (12.1-15.1); White Blood Count 15.8 10^3/uL (4.0-10.0)
[2021-07-08 19:36] VITALS: RESP 20; O2SAT 96
[2021-07-08] MEDS: ondansetron 2 mg/ML SDV 2 mL 4 MG IVP (19:36)
[2021-07-08] MEDS: morphine 4 mg/mL SDV 1 mL IVP (19:36)
[2021-07-08] MEDS: sodium chloride 0.9% 1,000 ML 999 ML IV (19:37)
[2021-07-08 19:44] LABS: Alanine Aminotransferase 18 U/L (0-41); Albumin Level 3.8 g/dL (3.5-5.2); Alkaline Phosphatase 76 IU/L (40-130); Anion Gap 13.8 (5-19); Aspartate Amino Transferase 10 U/L (0-40); Blood Urea Nitrogen 16 mg/dL (8-23); C Reactive Protein 59.3 mg/L (0.0-4.9); Calcium 9.1 mg/dL (8.5-10.5); Carbon Dioxide 27 mmol/L (22-29); Chloride 99 mmol/L (98-107); Globulin 3.1 g/dL (1.3-4.6); Glomerular Filtration Rate 43.5 mL/min (90-130); Glucose 189 mg/dL (65-115); Lipase 39 U/L (13-60); Osmolality Calculated 288 mOsm/kg (285-295); Potassium 3.8 mmol/L (3.5-5.1); Sodium 136 mmol/L (136-145); Total Bilirubin 0.9 mg/dL (0.15-1.2); Total Protein 6.9 g/dL (6.6-8.7)
[2021-07-08 19:52] LABS: Add Urine Microscopic? YES; Bilirubin Urine Neg (Negative); Blood Urine Trace (Negative); Glucose Urine UA 1+ (Normal); Ketones Urine Negative (Negative); Leukocyte Esterase Urine 2+ (Negative); Nitrate Urine Negative (Negative); Protein Urine 1+ (Negative); Specific Gravity, Urine 1.015 (1.005-1.030); Urine Appearance Clear (CLEAR); Urine Color Yellow (Yellow); Urobilinogen Urine Norm (Negative); pH Urine 6 (5-7)
[2021-07-08 19:53] LABS: Add Urine Culture? Yes; Bacteria Urine 4+ /hpf; RBC Urine 15-25 /hpf (0-2); Squamous Epithelial Cell Urine 0-4 /hpf (0-5); WBC Urine 25-40 /hpf (0-5)
[2021-07-08] MEDS: cefTRIAXone 1,000 MG in sodium chloride 0.9% (plus) 50 ML 100 MG IV (19:57)
[2021-07-08 20:06] LABS: Lactate (Lactic Acid level) 1.1 mmol/L (0.5-2.2)
--- NOTE | 2021-07-08 20:44 | ED_ITS ---
HPI - Male Genitourinary General: Chief complaint: Urogenital-Male Stated complaint: Prostate problems Time Seen by Provider: 07/08/21 18:49 Source: patient History of Present Illness: 66-year-old gentleman with a history of prostate problems he presents with urinary frequency, dysuria, and fever. He states his bladder feels quite full, and is having some back pain as well. He has vomited once. He feels like it constantly needs to go, but he has to strain for his urine MD Complaint: dysuria and other Onset (ago): day(s) Duration: constant Location: abdomen Severity: moderate Quality: aching and burning Relieving factors: urination Exacerbating factors: none Associated symptoms: Reports dysuria, fevers/chills, nausea, urinary retention (he believes) and vomiting; Deny discharge, hematuria, swelling or urinary incontinence Review of Systems Const: Reports: fever(s) and chills Card: Denies: chest pain Resp: Reports: non-productive cough; Denies: dyspnea or productive cough GI: Reports: nausea and vomiting : Reports: dysuria; Denies: urinary incontinence or hematuria Musc: Reports: back pain Skin/Breast: Denies: rash Neuro: Denies: confusion PFSH ED PFSH: Medical History (Updated 07/08/21 @ 21:49 by Aba Strange DO) Diabetes Hypertension Physical Exam Const: GENERAL APPEARANCE: cooperative and ill appearing (mildly); not frail appearing HENMT: COMMON NORMALS: normocephalic, atraumatic and Normal external nose present HEAD & SCALP: normocephalic and atraumatic FACE & SINUS: normal facial exam NOSE: Normal external nose present Eye: COMMON NORMALS: negative for Equal, round and reactive pupils present and negative for EOMs intact bilaterally PUPIL: No Equal, round and reactive pupils present Chest: COMMONS NORMALS: normal inspection of the chest CHEST: Yes Symmetrical chest wall rise Resp: COMMON NORMALS: normal respiratory effort, No use of accessory muscles and clear to auscultation bilaterally AUSCULTATION: clear to auscultation bilaterally Cardio: COMMON NORMALS: regular rate and regular rhythm RATE: regular rate RHYTHM: regular rhythm GI: COMMON NORMALS: Normal to inspection, nondistended, normoactive bowel sounds present and Soft to palpation PALPATION: Yes Soft to palpation and Yes Tenderness to palpation present (GI) (mild suprapubic) Neuro: NEIL COMA SCALE: document GCS findings Marion coma scale eye opening: Spontaneous Marion coma scale verbal response: Orientated Neil coma scale motor response: Obey commands Neil coma scale total score: 15 Course Vital Signs: Vital signs: Vital Signs Pulse Rate 82 07/08/21 22:06 Respiratory Rate 18 07/08/21 22:06 Blood Pressure 122/94 07/08/21 22:06 Pulse Oximetry 94 07/08/21 22:06 MDM - Male Medical Decision Making 66 year old gentleman with suprapubic pain, and fever. He has dysuria with a feeling that he can't empty his bladder. His bladder was not distended on bedside ultrasound. Postvoid residual was a little more than 200ML. Urinalysis reveals urinary tract infection. CT is negative. He has received one gram of Ceftriaxone and IV fluid. He does have a Leukocytosis, but has no vomiting here. He will be allowed home on antibiotics. We will cover for and extended amount of time due to the likelihood of prostatitis. He will follow up with his urologist. Lab Data : 07/08/21 18:58 07/08/21 18:58 Radiology Impressions Abdomen/Pelvis CT 07/08/21 19:05 IMPRESSION: No acute abdominopelvic pathology. COMMENTS: Consistent with the [employer]'s Incidental Findings Committee white paper (J Am Jennifer Radiol 2018): Any incidental renal lesion less than 1 cm or classified as too small to characterize, or any incidental cystic renal lesion characterized as simple-appearing, is likely benign. No follow-up imaging is recommended for these lesions per consensus recommendations based on imaging criteria. Laboratory Results WBC 15.8 10^3/uL (4.0-10.0) H 07/08/21 18:58 RBC 4.65 10^6/uL (4.1-5.3) 07/08/21 18:58 Hgb 15.3 g/dL (11.7-16.6) 07/08/21 18:58 Hct 43.8 % (42.0-52.0) 07/08/21 18:58 MCV 94.2 fl (80-94) H 07/08/21 18:58 MCH 32.9 pg (28.0-34.0) 07/08/21 18:58 MCHC 34.9 g/dL (30.0-36.0) 07/08/21 18:58 RDW 12.6 % (12.1-15.1) 07/08/21 18:58 Plt Count 159 10^3/cmm (130-400) 07/08/21 18:58 MPV 9.8 fL (7.4-10.4) 07/08/21 18:58 Neut % (Auto) 83.8 % 07/08/21 18:58 Lymph % (Auto) 5.6 % 07/08/21 18:58 [place] % (Auto) 9.7 % 07/08/21 18:58 Eos % (Auto) 0.3 % 07/08/21 18:58 Baso % (Auto) 0.2 % 07/08/21 18:58 Neut # (Auto) 13.24 10^3/uL (1.8-7.7) H 07/08/21 18:58 Lymph # (Auto) 0.9 10^3/uL (0.8-4.8) 07/08/21 18:58 [place] # (Auto) 1.5 10^3/uL (0.2-0.9) H 07/08/21 18:58 Eos # (Auto) 0.1 10^3/uL (0.0-0.8) 07/08/21 18:58 Baso # (Auto) 0.0 10^3/uL (0.0-0.1) 07/08/21 18:58 Nucleated RBC % (auto) 0 % 07/08/21 18:58 Nucleated RBCs # 0.0 /100WBC 07/08/21 18:58 Sodium 136 mmol/L (136-145) 07/08/21 18:58 Potassium 3.8 mmol/L (3.5-5.1) 07/08/21 18:58 Chloride 99 mmol/L (98-107) 07/08/21 18:58 Carbon Dioxide 27 mmol/L (22-29) 07/08/21 18:58 Anion Gap 13.8 (5-19) 07/08/21 18:58 BUN 16 mg/dL (8-23) 07/08/21 18:58 Creatinine 1.6 mg/dL (0.7-1.2) H 07/08/21 18:58 GFR Calculation 43.5 mL/min (90-130) L 07/08/21 18:58 Glucose 189 mg/dL (65-115) H 07/08/21 18:58 Calculated Osmolality 288 mOsm/kg (285-295) 07/08/21 18:58 Lactate 1.1 mmol/L (0.5-2.2) 07/08/21 19:20 Calcium 9.1 mg/dL (8.5-10.5) 07/08/21 18:58 Total Bilirubin 0.9 mg/dL (0.15-1.2) 07/08/21 18:58 AST 10 U/L (0-40) 07/08/21 18:58 ALT 18 U/L (0-41) 07/08/21 18:58 Alkaline Phosphatase 76 IU/L (40-130) 07/08/21 18:58 C-Reactive Protein 59.3 mg/L (0.0-4.9) H 07/08/21 18:58 Total Protein 6.9 g/dL (6.6-8.7) 07/08/21 18:58 Albumin 3.8 g/dL (3.5-5.2) 07/08/21 18:58 Globulin 3.1 g/dL (1.3-4.6) 07/08/21 18:58 Lipase 39 U/L (13-60) 07/08/21 18:58 Urine Color Yellow (Yellow) 07/08/21 19:24 Urine Appearance Clear (CLEAR) 07/08/21 19:24 Urine pH 6 (5-7) 07/08/21 19:24 Ur Specific [place] 1.015 (1.005-1.030) 07/08/21 19:24 Urine Protein 1+ (Negative) H 07/08/21 19:24 Urine Glucose (UA) 1+ (Normal) H 07/08/21 19:24 Urine Ketones Negative (Negative) 07/08/21 19:24 Urine Blood Trace (Negative) H 07/08/21 19:24 Urine Nitrate Negative (Negative) 07/08/21 19:24 Urine Bilirubin Neg (Negative) 07/08/21 19:24 Urine Urobilinogen Norm mg/dL (Negative) 07/08/21 19:24 Ur Leukocyte Esterase 2+ (Negative) H 07/08/21 19:24 Urine RBC 15-25 /hpf (0-2) H 07/08/21 19:24 Urine WBC 25-40 /hpf (0-5) H 07/08/21 19:24 Ur Squamous Epith Cells 0-4 /hpf (0-5) H 07/08/21 19:24 Amorphous Sediment Not Reportable 07/08/21 19:24 Urine Bacteria 4+ /hpf (NONE) H 07/08/21 19:24 Discharge Plan Discharge Patient Disposition: Home Clinical Impression: Urinary tract infection Condition: Stable Prescriptions: New levofloxacin 500 mg tablet 500 mg PO DAILY 14 Days 0RF Pyridium 100 mg tablet 100 mg PO TID PRN (Reason: pain) Qty: 7 0RF No Action lisinopril 20 mg tablet 20 mg PO DAILY 0RF metoprolol succinate 25 mg tablet extended release 24 hr 25 mg PO DAILY 0RF hydromorphone 4 mg tablet 4 mg PO Q6H PRN (Reason: Pain) 0RF Trulicity 0.75 mg/0.5 mL pen injector 0.75 mg SUBCUT DIRECTED 0RF Rx Instructions: (ON TUESDAYS) omeprazole 40 mg capsule,delayed release(DR/EC) 40 mg PO DAILY 0RF sertraline 50 mg Tablet 50 mg PO DAILY 0RF rosuvastatin 10 mg tablet 10 mg PO DAILY 0RF amlodipine 10 mg tablet 5 mg PO DAILY Qty: 0 0RF Discharge Orders: Discharge ED (Routine); Ordered 07/08/21 Ordered By: Aba Strange Referrals: Linden Coelho MD [Physician] - May York FNP [Primary Care Provider] - 4-7 days Patient Instructions: Opioid Safety Activity Restrictions/Additional Instructions: Return for fever greater than 100 despite 2-3 doses of antibiotics, worsening pain despite treatment, complete inability to urinate, mental status changes, any other concerning symptoms. Call your urologist on Sunday for follow-up. 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
[2021-07-08 22:06] VITALS: BP 122/94; PULSE 82; RESP 18; O2SAT 94
== END 2021-07-08 22:06 | disposition home or self-care (01) ==
PROVIDERS: Emergency Provider Emergency Medicine; PCP Nurse Practitioner Family
DX: N39.0 Urinary tract infection, site not specified (principal); E11.9 Type 2 diabetes mellitus without complications; I10 Essential (primary) hypertension
CPT/HCPCS: 51798; 74176; 80053; 81001; 83605; 83690; 85025; 86140; 87040; 87077; 87086; 87186; 96365; 96375; 99284; J0696; J2270; J2405; J7030

== ENCOUNTER 2021-09-23 16:33 | Emergency (ER) | payer MEDICARE, MEDICAID, SELFPAY ==
[2021-09-23 16:39] VITALS: BP 146/88; PULSE 91; RESP 15; TEMP 36.7; O2SAT 97; BMI 36.8
--- NOTE | 2021-09-23 16:41 | USR_ITS ---
PROCEDURE INFORMATION: Exam: US Duplex Right Lower Extremity Veins, Limited Exam date and time: 09/23/2021 4:49 PM Age: 66 years old Clinical indication: Pain; Leg, lower; Prior surgery; Surgery date: <1 month; Surgery type: Right knee replacement; Additional info: Leg swelling TECHNIQUE: Imaging protocol: Real-time Duplex ultrasound of the Right Lower Extremity with 2-D jessica scale, color Doppler flow and spectral waveform analysis with image documentation. Limited exam was focused on the right lower extremity veins. COMPARISON: CT Low Extremity w RIGHT [id number] 09/20/2018 2:15 PM FINDINGS: Right deep veins: Unremarkable. The common femoral, femoral, proximal profunda femoral, popliteal, posterior tibial and peroneal veins are patent without thrombus. Normal Doppler waveforms. Normal compressibility and/or augmentation response. Right superficial veins: Unremarkable. Saphenofemoral junction is patent without thrombus. Soft tissues: Unremarkable. US/[place] [id number] IMPRESSION: No sonographic evidence of deep vein thrombosis.
--- NOTE | 2021-09-23 16:47 | W.ED.GENADLT ---
HPI - General Adult General: Chief complaint: Extremity Problem,Nontraumatic Stated complaint: possible dvt Time Seen by Provider: 09/23/21 16:36 History of Present Illness: Patient is a 66-year-old male with a history of recent right-sided knee replacement on 09/13/2021 presenting to the emergency room for evaluation of swelling and pain in the right thigh. Patient was seen earlier today by home nurse was told to come to the emergency room for concerns of DVT. Patient tells me that he has noticed bruises on his right thigh and mild swelling. Patient denies any shortness of breath, cough, chest pain, palpitation or lightheadedness. Patient denies any fever or chills. Patient reports that his wound has been healing. Patient underwent surgery at [facility] is due to follow-up with his orthopedic surgeon in the next few weeks. Patient has no other focal complaints at this time. Onset: 10 days ago Duration:10 days Location:home Severity:moderate Associated symptoms: Deny chest pain, dyspnea, nausea, palpitations or vomiting Review of Systems Const: Denies: fever(s) or chills Eyes: Denies: change in vision ENMT: Denies: mouth pain Card: Denies: chest pain or palpitations Resp: Denies: dyspnea or non-productive cough GI: Denies: abdominal pain, nausea, vomiting or diarrhea : Denies: dysuria Musc: Reports: extremity pain (+R thigh pain and swelling) Skin/Breast: Reports: new lesions (+R thigh bruises) Neuro: Denies: weakness in extremities Psych: Reports: other (Normal mood) Beto/Lymph: Denies: easy bruising PFS ED PFSH: Medical History (Updated 09/23/21 @ 16:52 by Ladi Diaz MD) Diabetes Hypertension Surgical History (Updated 09/23/21 @ 16:50 by Ladi Diaz MD) Knee joint replacement status Social History (Updated 09/23/21 @ 16:51 by Ladi Diaz MD) Smoking and tobacco status: never smoked Alcohol intake: current Substance/Drug Use: never Physical Exam Const: COMMON NORMALS: alert HENMT: COMMON NORMALS: atraumatic HEAD & SCALP: atraumatic MOUTH: moist mucous membranes not abnormal Eye: COMMON NORMALS: EOMs intact bilaterally and conjunctivae normal CONJUNCTIVA: Yes conjunctivae normal Neck/C-Spine: COMMON NORMALS: full ROM and supple Resp: COMMON NORMALS: normal respiratory effort and clear to auscultation bilaterally AUSCULTATION: clear to auscultation bilaterally Cardio: COMMON NORMALS: regular rate RATE: regular rate GI: COMMON NORMALS: Soft to palpation and non-tender PALPATION: Yes Soft to palpation Extremity: COMMON NORMALS: full ROM OTHER: + Right inner and outer thigh ecchymoses with mild tenderness palpation in the mid right inner thigh No Homans' sign, neurovascular exam intact, thigh compartments and leg compartments intact in the right lower extremity Neuro: SENSORIUM/ORIENTATION: Yes alert MOTOR EXAM: No Abnormal motor strength present and Other motor observations present (no focal motor deficits) Psych: COMMON NORMALS: speech normal SPEECH: Yes normal speech MOOD & AFFECT: Yes euthymic mood Course Vital Signs: Vital signs: Vital Signs Temperature 98.1 F 09/23/21 16:39 Pulse Rate 81 09/23/21 17:04 Respiratory Rate 16 09/23/21 17:04 Blood Pressure 129/90 09/23/21 17:04 Pulse Oximetry 97 09/23/21 17:04 MDM - General Adult Medical Decision Making 66-year-old male with history of diabetes, hypertension, recent right-sided knee replacement presenting to the emergency room with right thigh ecchymoses and swelling and pain. This is concerning for possible DVT and he was told to come to the emergency room. On exam, patient has ecchymoses over the right thigh. The thigh compartments of the right leg are nontense. The leg compartments are nontense as well. Neurovascular exam intact in the right lower extremity. Ultrasound did not show any signs of DVT. He is given repeat instruction in 1 week for repeat ultrasound as he needs to ultrasound to completely rule out DVT. Rx tylenol PRN pain Disposition: Discharge. Patient counseled regarding diagnostic impression, treatment plan. Patient given ED strict return precautions to return for continuation, worsening, or development of new symptoms. Instructed to f/u w/ PCP regarding symptoms today. Patient verbalized understanding. Lab Data Radiology Impressions Venous Duplex 09/23/21 16:41 IMPRESSION: No sonographic evidence of deep vein thrombosis. Discharge Plan Discharge Patient Disposition: Home Clinical Impression: Leg pain, Leg swelling Prescriptions: No Action lisinopril 20 mg tablet 20 mg PO DAILY 0RF metoprolol succinate 25 mg tablet extended release 24 hr 25 mg PO DAILY 0RF hydromorphone 4 mg tablet 4 mg PO Q6H PRN (Reason: Pain) 0RF Trulicity 0.75 mg/0.5 mL pen injector 0.75 mg SUBCUT DIRECTED 0RF Rx Instructions: (ON TUESDAYS) omeprazole 40 mg capsule,delayed release(DR/EC) 40 mg PO DAILY 0RF sertraline 50 mg Tablet 50 mg PO DAILY 0RF rosuvastatin 10 mg tablet 10 mg PO DAILY 0RF amlodipine 10 mg tablet 5 mg PO DAILY Qty: 0 0RF Pyridium 100 mg tablet 100 mg PO TID PRN (Reason: pain) Qty: 7 0RF Discharge Orders: Discharge ED (Routine); Ordered 09/23/21 Ordered By: Ladi Diaz Referrals: May York FNP [Primary Care Provider] - Discharge Diet: Advance as tolerated Discharge Activity: Increase activity as tolerated Patient Instructions: Leg Pain (ED) Activity Restrictions/Additional Instructions: Please follow-up with your orthopedic doctor in [place]. Please come back to the emergency room if you notice any knee pain, swelling, difficulty with range of motion on the right, fever or chills, or any new concerning complaints. Come back if there is any significant bruises thigh pain or leg pain. Please repeat US in 1 week to ensure you don't have DVT. Coding Level of Care Code ED Systems Support Specialist for Liane Fwdarrel Exam Comprehensive
[2021-09-23 17:04] VITALS: BP 129/90; PULSE 81; RESP 16; O2SAT 97
[2021-09-23 18:44] VITALS: BP 139/76; PULSE 80; RESP 18; O2SAT 96
[2021-09-23 18:53] LABS: Add Urine Microscopic? NO; Charge for UA Resulting for Rev
[2021-09-23 18:54] LABS: Bilirubin Urine Neg (Negative); Blood Urine Neg (Negative); Glucose Urine UA Norm (Normal); Ketones Urine Negative (Negative); Leukocyte Esterase Urine Negative (Negative); Nitrate Urine Negative (Negative); Protein Urine Neg (Negative); Specific Gravity, Urine 1.015 (1.005-1.030); Urine Appearance Clear (CLEAR); Urine Color Yellow (Yellow); Urobilinogen Urine Norm (Negative); pH Urine 5 (5-7)
[2021-09-24 08:48] LABS: Glucose Point of Care 124 mg/dL (70-110)
== END 2021-09-23 18:51 | disposition home or self-care (01) ==
PROVIDERS: Emergency Provider Emergency Medicine; PCP Nurse Practitioner Family
DX: M79.89 Other specified soft tissue disorders (principal); M79.604 Pain in right leg; E11.9 Type 2 diabetes mellitus without complications; I10 Essential (primary) hypertension; Z96.651 Presence of right artificial knee joint
CPT/HCPCS: 36416; 81003; 82962; 93971; 99284

== ENCOUNTER 2021-12-22 02:35 | Inpatient (IN) | payer MEDICARE, MEDICAID, SELFPAY ==
[2021-12-22] VITALS (10 sets, daily range): BP systolic 107–161; BP diastolic 66–86; PULSE 80–120; RESP 15–18; TEMP 36.8–38.2; O2SAT 94–98; BMI 36.0
--- NOTE | 2021-12-22 02:39 | XRR_ITS ---
PROCEDURE INFORMATION: Exam: XR Chest Exam date and time: 12/22/2021 2:46 AM Age: 66 years old Clinical indication: Shortness of breath; Additional info: SOB TECHNIQUE: Imaging protocol: Radiologic exam of the chest. Views: 1 view. COMPARISON: CR XR chest 1V portable [id number] 01/26/2020 2:40 PM FINDINGS: Tubes, catheters and devices: Neurostimulator leads project over the midthoracic spine. Lungs: Unremarkable. No consolidation. Pleural spaces: Unremarkable. No pleural effusion. No pneumothorax. Heart/Mediastinum: Stable cardiomediastinal silhouette. Bones/joints: The patient is status post left shoulder arthroplasty. XR/XR chest 1V portable [id number] IMPRESSION: No evidence of active cardiopulmonary disease.
--- NOTE | 2021-12-22 02:40 | ECG_ITS ---
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 Measurements Intervals [place] Rate: 111 P: 50 NV: 172 QRS: -52 QRSD: 81 T: 83 QT: 321 QTc: 438 Interpretive Statements SINUS TACHYCARDIA PATTERN CONSISTENT WITH PULMONARY DISEASE LEFT ANTERIOR FASCICULAR BLOCK [QRS AXIS <= -45, QR IN I, RS IN II] NONSPECIFIC T-WAVE ABNORMALITY Compared to ECG 01/26/2020 14:30:24 Left anterior fascicular block now present Sinus rhythm no longer present T-wave abnormality still present Electronically Signed On 12-22-2021 11:07:41 CDT by Hood Appiah M.D. [email or web address].[email or web address]/store/[id number] f
--- NOTE | 2021-12-22 02:41 | ED_ITS ---
HPI - SOB/Dyspnea General: Chief Complaint: Shortness of Breath/Dyspnea Stated Complaint: SOB Time Seen by Provider: 12/22/21 02:38 Source: patient and EMS Mode of arrival: EMS Limitations: no limitations History of Present Illness: HPI Narrative: 66-year-old male states has been having shortness of breath throughout the night. States he has had a mild pain in his chest. He states he feels like he cannot get a breath he has no history of CHF or COPD he denies any cough denies any fever denies any vomiting or diarrhea. He also states he is having a hard time urinating with pain with urination. Associated symptoms: Deny abdominal pain, chest pain, fever(s), nausea or vomiting Review of Systems Const: Denies: fever(s), chills, body aches or change in appetite Eyes: Denies: blurry vision or eye discomfort ENMT: Denies: throat pain or dental pain Card: Denies: chest pain Resp: Reports: dyspnea GI: Denies: abdominal pain, nausea, vomiting or diarrhea : Reports: difficulty urinating and dysuria Musc: Denies: neck pain or back pain Skin/Breast: Denies: rash Neuro: Denies: headache(s) Psych: Denies: depression Beto/Lymph: Denies: easy bruising All/Imm: Denies: urticaria PFSH ED PFSH: Medical History Diabetes Hypertension Surgical History Knee joint replacement status Social History Smoking and tobacco status: never smoked Alcohol intake: current Physical Exam Const: COMMON NORMALS: no acute distress, patient oriented x3 and healthy appearing HENMT: COMMON NORMALS: normocephalic and atraumatic HEAD & SCALP: normocephalic and atraumatic Eye: COMMON NORMALS: Equal, round and reactive pupils present and EOMs intact bilaterally PUPIL: Yes Equal, round and reactive pupils present Neck/C-Spine: COMMON NORMALS: full ROM and supple Chest: COMMONS NORMALS: normal inspection of the chest and normal palpation of entire chest wall Resp: COMMON NORMALS: normal respiratory effort, No retractions, No use of accessory muscles and clear to auscultation bilaterally AUSCULTATION: clear to auscultation bilaterally Cardio: COMMON NORMALS: regular rate, regular rhythm and No murmurs present (Cardio) RATE: regular rate RHYTHM: regular rhythm GI: COMMON NORMALS: Normal to inspection, nondistended, normoactive bowel sounds present, Soft to palpation, non-tender and no masses PALPATION: Yes Soft to palpation Extremity: COMMON NORMALS: normal to inspection and full ROM Neuro: COMMON NORMALS: patient oriented x3, moves all extremities and no focal motor deficits Psych: COMMON NORMALS: mental status grossly normal, Normal thought process present and cooperative THOUGHT PROCESS: Normal thought process present Skin: COMMON NORMALS: no rashes or lesions noted and no wounds GENERAL SKIN EXAM: no rashes or lesions noted Course Vital Signs: Vital signs: Vital Signs Temperature 98.3 F 12/22/21 02:35 Pulse Rate 110 H 12/22/21 02:42 Respiratory Rate 15 12/22/21 02:42 Blood Pressure 161/86 12/22/21 02:42 Pulse Oximetry 94 12/22/21 02:42 Oxygen Delivery Me thod 12/22/21 02:42 MDM - SOB/Dyspnea Medical Decision Making Patient originally presented for shortness of breath his CT shows no signs of pulm embolism or pneumonia he is also had some dysuria he does have a acute cystitis with leukocytosis we will admit him for IV antibiotics. Lab Data : 12/22/21 02:42 12/22/21 02:42 Labs/Radiology: Radiology Impressions Chest X-Ray 12/22/21 02:39 IMPRESSION: No evidence of active cardiopulmonary disease. Chest CTA 12/22/21 02:42 IMPRESSION: 1. No pulmonary embolus or other acute pathology in the chest. 2. Left thyroid lobe nodule. Further evaluation with dedicated ultrasound in a non-emergent basis is recommended. COMMENTS: Consistent with the [employer]'s Incidental Findings Committee white paper (J Am Jennifer Radiol 2015): In patients aged 35 years and older with an incidental thyroid nodule equal to or greater than 1.[address], MRI or extrathyroidal US, further evaluation with dedicated thyroid US is recommended for patients with normal life expectancy and without comorbidities. For smaller nodules without suspicious features, no further evaluation or follow up is recommended. Laboratory Results WBC 23.6 10^3/uL (4.0-10.0) H 12/22/21 02:42 RBC 5.08 10^6/uL (4.1-5.3) 12/22/21 02:42 Hgb 16.2 g/dL (11.7-16.6) 12/22/21 02:42 Hct 46.1 % (42.0-52.0) 12/22/21 02:42 MCV 90.7 fl (80-94) 12/22/21 02:42 MCH 31.9 pg (28.0-34.0) 12/22/21 02:42 MCHC 35.1 g/dL (30.0-36.0) 12/22/21 02:42 RDW 11.9 % (12.1-15.1) L 12/22/21 02:42 Plt Count 147 10^3/cmm (130-400) 12/22/21 02:42 MPV 9.5 fL (7.4-10.4) 12/22/21 02:42 Neut % (Auto) 85.8 % 12/22/21 02:42 Lymph % (Auto) 4.1 % 12/22/21 02:42 [place] % (Auto) 8.2 % 12/22/21 02:42 Eos % (Auto) 0.5 % 12/22/21 02:42 Baso % (Auto) 0.3 % 12/22/21 02:42 Neut # (Auto) . 10^3/uL (1.8-7.7) H 12/22/21 02:42 Lymph # (Auto) 1.0 10^3/uL (0.8-4.8) 12/22/21 02:42 [place] # (Auto) 1.9 10^3/uL (0.2-0.9) H 12/22/21 02:42 Eos # (Auto) 0.1 10^3/uL (0.0-0.8) 12/22/21 02:42 Baso # (Auto) 0.1 10^3/uL (0.0-0.1) 12/22/21 02:42 Nucleated RBC % (auto) 0 % 12/22/21 02:42 Nucleated RBCs # 0.0 /100WBC 12/22/21 02:42 PT 13.60 SECONDS (12.1-14.9) 12/22/21 02:42 INR 1.01 (0.8-1.2) 12/22/21 02:42 D-Dimer 1.10 ug/mIFEU (0-0.59) H 12/22/21 02:42 Sodium 134 mmol/L (136-145) L 12/22/21 02:42 Potassium 4.6 mmol/L (3.5-5.1) 12/22/21 02:42 Chloride 100 mmol/L (98-107) 12/22/21 02:42 Carbon Dioxide 21 mmol/L (22-29) L 12/22/21 02:42 Anion Gap 17.6 (5-19) 12/22/21 02:42 BUN 13 mg/dL (8-23) 12/22/21 02:42 Creatinine 1.1 mg/dL (0.7-1.2) 12/22/21 02:42 GFR Calculation 67.0 mL/min (90-130) L 12/22/21 02:42 Glucose 228 mg/dL (65-115) H 12/22/21 02:42 Calculated Osmolality 285 mOsm/kg (285-295) 12/22/21 02:42 Calcium 9.2 mg/dL (8.5-10.5) 12/22/21 02:42 Total Bilirubin 1.3 mg/dL (0.15-1.2) H 12/22/21 02:42 AST 16 U/L (0-40) 12/22/21 02:42 ALT 23 U/L (0-41) 12/22/21 02:42 Alkaline Phosphatase 87 U/L (40-130) 12/22/21 02:42 Troponin T Baseline 14 ng/L (0-15) 12/22/21 02:42 NT-Pro-B Natriuret Pep 201 pg/mL (0-125) H 12/22/21 02:42 Total Protein 6.8 g/dL (6.6-8.7) 12/22/21 02:42 Albumin 3.7 g/dL (3.5-5.2) 12/22/21 02:42 Globulin 3.1 g/dL (1.3-4.6) 12/22/21 02:42 Urine Color Yellow (Yellow) 12/22/21 03:00 Urine Appearance Cloudy (CLEAR) A 12/22/21 03:00 Urine pH 5 (5-7) 12/22/21 03:00 Ur Specific [place] 1.015 (1.005-1.030) 12/22/21 03:00 Urine Protein 1+ (Negative) H 12/22/21 03:00 Urine Glucose (UA) Norm (Normal) 12/22/21 03:00 Urine Ketones 1+ (Negative) H 12/22/21 03:00 Urine Blood 3+ (Negative) H 12/22/21 03:00 Urine Nitrate Negative (Negative) 12/22/21 03:00 Urine Bilirubin Neg (Negative) 12/22/21 03:00 Urine Urobilinogen Norm mg/dL (Negative) 12/22/21 03:00 Ur Leukocyte Esterase 2+ (Negative) H 12/22/21 03:00 Urine RBC Too numerous to cnt /hpf (0-2) H 12/22/21 03:00 Urine WBC Too numerous to cnt /hpf (0-5) H 12/22/21 03:00 Ur Squamous Epith Cells 0-4 /hpf (0-5) H 12/22/21 03:00 Amorphous Sediment Not Reportable 12/22/21 03:00 Urine Bacteria 3+ /hpf (NONE) H 12/22/21 03:00 EKG Data EKG 1: I personally reviewed and interpreted this EKG as follows: EKG Interpretation Date: 12/22/21 EKG interpretation time: 02:40 Interpretation: sinus tach hr [address] elevation qrs 81 qtc 387 EKG 2: I personally reviewed and interpreted this EKG as follows: EKG Interpretation Date: 12/22/21 EKG interpretation time: 04:17 Interpretation: sinus tach hr [address] or t wave abnormalities qrs 84 qtc 385 Discharge Plan Discharge Patient Disposition: Admitted As Inpatient Admit Provider: Sabrina Hackett Clinical Impression: Acute cystitis, Breath shortness Condition: Stable Coding Level of Care Code ED Appointment Scheduler for Chg Fwd Exam Comprehensive
--- NOTE | 2021-12-22 02:42 | CTR_ITS ---
PROCEDURE INFORMATION: Exam: CTA Chest With Contrast Exam date and time: 12/22/2021 3:26 AM Age: 66 years old Clinical indication: Pain; Shortness of breath; Chest pressure; Additional info: SOB TECHNIQUE: Imaging protocol: Computed tomographic angiography of the chest with contrast. 3D rendering (Not supervised by radiologist): MIP and/or 3D reconstructed images were created by the technologist. Radiation optimization: All CT scans at this facility use at least one of these dose optimization techniques: automated exposure control; mA and/or kV adjustment per patient size (includes targeted exams where dose is matched to clinical indication); or iterative reconstruction. Contrast material: OMNI 350; Contrast volume: 100 ml; Contrast route: INTRAVENOUS (IV); COMPARISON: CR (CHEST, ) 12/22/2021 2:46 AM RADIATION DOSE METRICS: Total DLP (mGy-cm): 529.1 FINDINGS: Tubes, catheters and devices: Midthoracic spine neurostimulator leads seen. Pulmonary arteries: Normal. No pulmonary emboli. Aorta: Mild diffuse atherosclerotic disease is present. No aortic aneurysm. No aortic dissection. Thyroid: There is a 2.7 cm hypodense nodule in the left thyroid lobe. Lungs: Minimal bilateral dependent atelectasis noted. No consolidation. No masses. Pleural spaces: Unremarkable. No pneumothorax. No pleural effusion. Heart: Mildly enlarged heart. Coronary atherosclerotic calcifications seen. No pericardial effusion. Mediastinal space: There is mild diffuse thickening of the esophageal wall, suggestive of esophagitis. Lymph nodes: There is a small calcified granuloma in the subcarinal region, likely sequela of previous granulomatous disease. No lymphadenopathy. Spleen: A small accessory splenule is noted in the left upper quadrant. The spleen is unremarkable. Bones/joints: Degenerative changes of the spine seen. Left shoulder arthroplasty hardware noted. Soft tissues: Unremarkable. CT/CT angio chest PE protcl [id number] IMPRESSION: 1. No pulmonary embolus or other acute pathology in the chest. 2. Left thyroid lobe nodule. Further evaluation with dedicated ultrasound in a non-emergent basis is recommended. COMMENTS: Consistent with the [place] [employer]'s Incidental Findings Committee white paper (J Am Jennifer Radiol 2015): In patients aged 35 years and older with an incidental thyroid nodule equal to or greater than 1.[address], MRI or extrathyroidal US, further evaluation with dedicated thyroid US is recommended for patients with normal life expectancy and without comorbidities. For smaller nodules without suspicious features, no further evaluation or follow up is recommended.
[2021-12-22 02:46] LABS: Basophils # 0.1 10^3/uL (0.0-0.1); Basophils % 0.3 %; Eosinophils # 0.1 10^3/uL (0.0-0.8); Eosinophils % 0.5 %; Hematocrit 46.1 % (42.0-52.0); Hemoglobin 16.2 g/dL (11.7-16.6); Lymphocytes % 4.1 %; Mean Corpuscular HGB Conc 35.1 g/dL (30.0-36.0); Mean Corpuscular Hemoglobin 31.9 pg (28.0-34.0); Mean Corpuscular Volume 90.7 fl (80-94); Mean Platelet Volume 9.5 fL (7.4-10.4); Monocytes # 1.9 10^3/uL (0.2-0.9); Monocytes % 8.2 %; Neutrophils # 20.22 10^3/uL (1.8-7.7); Neutrophils % 85.8 %; Nucleated Red Blood Cells % 0 %; Platelet Count 147 10^3/cmm (130-400); Red Blood Count 5.08 10^6/uL (4.1-5.3); Red Cell Distribution Width 11.9 % (12.1-15.1); White Blood Count 23.6 10^3/uL (4.0-10.0)
[2021-12-22 02:57] LABS: INR 1.01 (0.8-1.2)
[2021-12-22 03:10] LABS: Troponin(5th) Baseline 14 ng/L (0-15)
[2021-12-22 03:20] LABS: Alanine Aminotransferase 23 U/L (0-41); Albumin Level 3.7 g/dL (3.5-5.2); Alkaline Phosphatase 87 U/L (40-130); Blood Urea Nitrogen 13 mg/dL (8-23); Calcium 9.2 mg/dL (8.5-10.5); Carbon Dioxide 21 mmol/L (22-29); Chloride 100 mmol/L (98-107); Globulin 3.1 g/dL (1.3-4.6); Glucose 228 mg/dL (65-115); NT Pro B Type Natriuretic Pept 201 pg/mL (0-125); Osmolality Calculated 285 mOsm/kg (285-295); Sodium 134 mmol/L (136-145); Total Bilirubin 1.3 mg/dL (0.15-1.2); Total Protein 6.8 g/dL (6.6-8.7)
[2021-12-22] MEDS: iohexol 350 mg/mL 100 mL Btl IV (03:31)
[2021-12-22 03:45] LABS: Anion Gap 17.6 (5-19); Aspartate Amino Transferase 16 U/L (0-40); Potassium 4.6 mmol/L (3.5-5.1)
[2021-12-22 03:47] LABS: Add Urine Microscopic? YES; Bilirubin Urine Neg (Negative); Blood Urine 3+ (Negative); Glucose Urine UA Norm (Normal); Ketones Urine 1+ (Negative); Leukocyte Esterase Urine 2+ (Negative); Nitrate Urine Negative (Negative); Protein Urine 1+ (Negative); Specific Gravity, Urine 1.015 (1.005-1.030); Urine Appearance Cloudy (CLEAR); Urine Color Yellow (Yellow); Urobilinogen Urine Norm (Negative); pH Urine 5 (5-7)
[2021-12-22 03:48] LABS: Add Urine Culture? Yes; Bacteria Urine 3+ /hpf; RBC Urine TOO NUMEROUS TO CNT /hpf (0-2); Squamous Epithelial Cell Urine 0-4 /hpf (0-5); WBC Urine TOO NUMEROUS TO CNT /hpf (0-5)
[2021-12-22] MEDS: cefTRIAXone 1,000 MG in sodium chloride 0.9% (plus) 50 ML 100 MG IV (04:30)
--- NOTE | 2021-12-22 04:39 | ECG_ITS ---
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 Measurements Intervals [place] Rate: 101 P: 41 NC: 177 QRS: -35 QRSD: 84 T: 62 QT: 327 QTc: 424 Interpretive Statements SINUS TACHYCARDIA LEFT AXIS DEVIATION [QRS AXIS < -30] PATTERN CONSISTENT WITH PULMONARY DISEASE NONSPECIFIC T-WAVE ABNORMALITY Compared to ECG 12/22/2021 02:40:41 Left-axis deviation now present Left anterior fascicular block no longer present T-wave abnormality still present Electronically Signed On 12-22-2021 11:09:24 CDT by Hood Appiah M.D. [id number]
[2021-12-22 05:05] LABS: Troponin 5 2HR 16.45 ng/L (0-15)
[2021-12-22 05:07] LABS: Troponin 5 2HR Delta 2.45 ABS# (0-10)
--- NOTE | 2021-12-22 06:35 | CT_ITS ---
WS: [id number] CT ABDOMEN PELVIS TECHNIQUE: Noncontrast CT of the abdomen and pelvis with coronal and sagittal reformatted images. CLINICAL INFORMATION: evaluate for hydronephrosis COMPARISON: CT July 08, 2021 DLP: 1120.[address] scans at [facility] use at least one of these dose optimization techniques: automated e xposure control; mA and/or kV adjustment per patient size (includes targeted exams where dose is matc hed to clinical indication); or iterative reconstruction. FINDINGS: Bilateral renal cortical atrophy. Residual contrast in the kidneys, ureters and bladder from recent C TA. Diffuse bladder wall thickening. Prostate enlargement with prior TURP. Enlarged prostate measures 5.5 CM. Thickening of the seminal vesicles. No hydronephrosis in either kidney. No obstructing renal or ureteral calculi. Adrenal glands are normal. Perinephric edema about both kidneys unchanged since July 08, 2021 can be seen with renal insufficiency. RIGHT lower pole renal cyst measuring 4.2 CM. Add itional smaller LEFT renal cysts. Lung bases are well aerated. Noncontrast liver is normal. Normal noncontrast gallbladder. Normal GE j unction. Normal noncontrast pancreas. Small splenule. Normal caliber abdominal aorta. Vascular calcification. Sigmoid diverticulosis. Pedicle screw fixation L4-L5. CT/CT kidney stone [id number] IMPRESSION: 1. Residual contrast from recent CTA. No hydronephrosis. Contrast excretion vi sualized in both ureters and bladder. 2. Diffuse bladder wall thickening can be seen with chronic bladder outlet obs truction or chronic cystitis. Enlarged prostate measuring 5.5 cm with prior TUR P. 3. Normal caliber abdominal aorta. 4. RIGHT lower pole renal cyst measuring 1.2 CM. 5. Sigmoid diverticulosis. 6. No other acute findings.
--- NOTE | 2021-12-22 06:40 | P.HP_ITS ---
Providers/Chief Complaint Admitting Physician: Sabrina Hackett MD Primary Care Provider: NAVJOT Milian Chief Complaint: SOB History of Present Illness Edilberto Noriega is a 66 year old male with past medical history of hypertension, renal stones in the past, Enterococcus UTI, diabetes presents to the ER today because of burning in painful micturition for last 24 to 48 hours associated with nausea and feeling disoriented. Patient was also complaining of central chest pain prior to coming to the ER. In the ER blood work showed a WBC of 23,000, sodium 134, creatinine of 1.1, bi lirubin of 1.3, CTA chest was done which ruled out pulmonary embolism or pneumonia but was concerning for esophagitis, UA was concerning for acute cystitis. Review of Systems General: Reports: 10 or more systems reviewed and unremarkable except in HPI and below Const: Denies: fever(s), chills or body aches Eyes: Denies: change in vision, blurry vision or photophobia ENMT: Reports: hoarseness; Denies: throat pain, enlarged tonsils, odynophagia or nasal congestion Card: Denies: chest pain, palpitations, irregular heart rhythm, edema, swelling of feet/ankles, lightheadedness, pre-syncope, dyspnea on exertion or orthopnea Resp: Denies: dyspnea, productive cough, non-productive cough, wheezing, stridor, pain on inspiration, change in phlegm color, hemoptysis or chest congestion GI: Denies: abdominal pain, nausea, vomiting, hematemesis, coffee ground emesis, dysphagia, heartburn, diarrhea, constipation, GI cramping, change in stool character, hematochezia or melena : Denies: flank pain, dysuria, urinary frequency, urinary urgency, urinary hesitancy or hematuria Musc: Denies: neck pain, back pain, extremity pain, joint swelling, joint warmth or deformity Neuro: Denies: headache(s), numbness in extremities, weakness in extremities, sensory changes, difficulty walking, frequent falls, dizziness, vertigo, behavioral changes, Slurred speech present or seizure-like activity Psych: Denies: anxiety, depression, suicidal ideation or homicidal ideation Endo: Denies: polyuria, polydipsia, tired all the time, cold intolerance or hot flashes Beto/Lymph: Denies: easy bruising or easy bleeding Medications/Allergies Home Medications Medication Instructions Recorded Confirmed Last Taken Type hydromorphone 4 mg tablet 4 mg PO Q6H PRN Pain 07/29/19 12/22/21 09/17/20 History lisinopril 20 mg tablet 20 mg PO DAILY 07/29/19 12/22/21 09/17/20 History metoprolol succinate 25 mg 25 mg PO DAILY 07/29/19 12/22/21 09/17/20 History tablet,extended release 24 hr dulaglutide 0.75 mg/0.5 mL 0.75 mg SUBCUT DIRECTED 07/31/19 12/22/21 12/20/21 History subcutaneous pen injector (Trulicity) omeprazole 40 mg capsule,delayed 40 mg PO DAILY 01/26/20 12/22/21 09/17/20 History release rosuvastatin 10 mg tablet 10 mg PO DAILY 01/26/20 12/22/21 09/17/20 History sertraline 50 mg tablet 50 mg PO DAILY 01/26/20 12/22/21 09/17/20 History amlodipine 10 mg tablet 5 mg PO DAILY #0 tabs 09/18/20 12/22/21 09/16/20 Rx phenazopyridine 100 mg tablet 100 mg PO TID PRN pain 6 doses #7 07/08/21 12/22/21 Unknown Rx (Pyridium) tabs Allergies Allergy/AdvReac Type Severity Reaction Status Date / Time sulfamethoxazole Allergy ALGY-Rash Verified 12/22/21 02:39 [From Bactrim] trimethoprim [From Bactrim] Allergy ALGY-Rash Verified 12/22/21 02:39 PFSH Acute PFSH: Medical History Diabetes Hypertension Surgical History Knee joint replacement status Social History Smoking and tobacco status: never smoked Alcohol intake: current Vitals/I&O/Wt Last Vital Signs Temp 100.1 F H 12/22/21 06:00 Pulse 100 12/22/21 06:00 Resp 18 12/22/21 06:00 BP 136/75 12/22/21 06:00 Pulse Ox 94 12/22/21 06:00 O2 Del Method 12/22/21 06:00 12/21/21 12/21/21 12/22/21 14:59 22:59 06:59 Intake Total 50 / 50 Balance 50 / 50 Weight last 48 hrs Weight 104.326 kg Physical Exam Narrative: General: No acute distress, AO x3, sick appearing, HEENT: PERRLA, pupils bilaterally equal and reactive, pallors not present Chest: Normal vesicular breath sounds, no added sounds, equal good air entry bilaterally CVS: S1-S2 regular, no murmurs, no tachycardia, no gallops, no rubs Abdomen: Soft, mild tenderness in lower abdomen, no organomegaly, bowel sounds present Neuro: No focal deficits, no facial deformity, AO x3, power 5/5 in all limbs Data : 12/22/21 02:42 12/22/21 02:42 Micro: Microbiology 12/22/21 04:20 Blood Culture - Preliminary Blood SPECIMEN COLLECTED 12/22/21 04:20 Blood Culture - Preliminary Blood SPECIMEN COLLECTED A&P Assessment and plan (1) Acute cystitis: Fever, leukocytosis of 23, positive UA concerning for urinary tract infection. Review of past CT of the abdomen pelvis shows patient has a history of kidney stones. Given additionally pain in the lower chest/abdominal region, concern for obstructive pyelonephritis. Will order CT renal stone to further evaluate. Empiric antibiotic treatment with piperacillin tazobactam in the interim. Prior urine culture from July 2021 showed Enterococcus faecalis. Continue outpatient Pyridium 100 mg p.o. 3 times daily as needed. Blood culture taken IV fluid normal saline at 75 cc an hour. (2) Breath shortness: Subjective less dyspnea and chest discomfort. EKG without acute ST-T wave changes. Troponin baseline at 14, 2-hour at 16, delta not significant at 2.4, less patricia rning for ACS. CTA of his chest negative for PE, consolidation or dissection. Esophagus incidentally shows mild diffuse thickening suggestive of esophagitis which may be a cause of his symptoms relating to the chest. Protonix 40 mg p.o. twice daily Added Tums GI cocktail x1 Plan Diabetes mellitus: Insulin sliding scale Attestations Medical Necessity Statement*: Anticipate greater than 2 midnight admission for IV antibiotics, acute cystitis, Time Spent in Patient Care: Greater than 35 minutes Coding Level of Care Code Acute Analysis Evaluator for [facility] Fwd Diagnoses Acute cystitis N30.00 Breath shortness R06.02
[2021-12-22 07:53] LABS: Glucose Point of Care 248 mg/dL (70-110)
[2021-12-22] MEDS: lidocaine 2% viscous 15 ML, aluminum-mag hydrox-simethicon 30 ML, sucralfate oral liq 1 GM PO (08:37)
--- NOTE | 2021-12-22 08:39 | ECG_ITS ---
[facility] Test Date: 2021-12-22 Pat Name: Edilberto Noriega Department: Room: 252 Gender: Male Quality Systems Manager: : 1955 Requested By: Steffi Lee Order Number: [id number] Salena MD: Hood Appiah M.D. Measurements Intervals [place] Rate: 81 P: 50 VA: 178 QRS: -42 QRSD: 94 T: 70 QT: 367 QTc: 428 Interpretive Statements SINUS RHYTHM LEFT AXIS DEVIATION [QRS AXIS < -30] PATTERN CONSISTENT WITH PULMONARY DISEASE NONSPECIFIC T-WAVE ABNORMALITY Compared to ECG 12/22/2021 04:17:33 Sinus tachycardia no longer present T-wave abnormality still present Electronically Signed On 12-22-2021 11:08:44 CDT by Hood Appiah M.D. [email or web address]
[2021-12-22] MEDS: piperacillin-tazobactam 3.375 GM in sodium chloride 0.9% (plus) 50 ML IV ×2 (08:41→15:38)
[2021-12-22] MEDS: insulin lispro 100 unit/1 mL SUBCUT ×4 (08:41→20:42)
[2021-12-22] MEDS: metoprolol succinate ER (24 HR) 25 mg Tablet PO (08:42)
[2021-12-22] MEDS: lisinopril 20 mg Tablet PO (08:42)
[2021-12-22] MEDS: enoxaparin 40 mg/0.4 mL Syringe SUBCUT (08:42)
[2021-12-22] MEDS: sertraline 50 mg Tablet PO (08:42)
[2021-12-22] MEDS: amlodipine 10 mg Tablet 5 MG PO (08:42)
[2021-12-22] MEDS: pantoprazole DR 40 mg Tablet PO ×3 (08:43→16:44)
[2021-12-22] MEDS: atorvastatin 40 mg Tablet PO (08:43)
[2021-12-22] MEDS: sodium chloride 0.9% 1,000 ML 75 ML IV (08:50)
[2021-12-22 08:57] LABS: Troponin 5 6HR 17.35 ng/L (0-15)
[2021-12-22 09:01] LABS: Troponin 5 6HR Delta 3.35 ng/L (0-12)
--- NOTE | 2021-12-22 11:05 | PM.PN ---
Subjective Subjective: Admitted overnight. H&P appreciated. Lying comfortably in bed. States he is feeling a lot better. Denies any nausea, vomiting, headache. States chest pain is relieved. Vitals/I&O/Wt Last Vital Signs Temp 98.8 F 12/22/21 08:00 Pulse 88 12/22/21 08:00 Resp 18 12/22/21 10:19 BP 131/80 12/22/21 08:00 Pulse Ox 97 12/22/21 08:00 O2 Del Method 12/22/21 09:06 12/21/21 12/22/21 12/22/21 22:59 06:59 14:59 Intake Total 50 / 50 Output Total 325 / 325 Balance 50 / 50 -325 / -325 Weight last 48 hrs Weight 104.326 kg Physical Exam Narrative: General: No acute distress, AO x3 HEENT: PERRLA, pupils bilaterally equal and reactive, pallors not present Chest: Normal vesicular breath sounds, no added sounds, equal good air entry bilaterally CVS: S1-S2 regular, no murmurs, no tachycardia, no gallops, no rubs Abdomen: Soft, nontender, no organomegaly, bowel sounds present Neuro: No focal deficits, no facial deformity, AO x3, power 5/5 in all limbs Data : 12/22/21 02:42 12/22/21 02:42 Micro: Microbiology 12/22/21 04:20 Blood Culture - Preliminary Blood SPECIMEN COLLECTED 12/22/21 04:20 Blood Culture - Preliminary Blood SPECIMEN COLLECTED CT Abd/Pel: Radiologist's impression: Abdomen/Pelvis CT 12/22/21 06:35 IMPRESSION: 1. Residual contrast from recent CTA. No hydronephrosis. Contrast excretion visualized in both ureters and bladder. 2. Diffuse bladder wall thickening can be seen with chronic bladder outlet obstruction or chronic cystitis. Enlarged prostate measuring 5.5 cm with prior TURP. 3. Normal caliber abdominal aorta. 4. RIGHT lower pole renal cyst measuring 1.2 CM. 5. Sigmoid diverticulosis. 6. No other acute findings. A&P Assessment and plan (1) Acute cystitis: Fever, leukocytosis of 23, positive UA concerning for urinary tract infection. CT abdomen pelvis ruled out obstructive nephropathy/pyelonephritis. Follow-up urine culture. Prior urine culture suggestive of Enterococcus faecalis. Continue with Zosyn. Add vancomycin. Continue with outpatient Pyridium as needed. Normal saline at 75 cc/h. (2) Breath shortness: Troponin cycled negative. CTA negative for PE or pneumonia. Most likely secondary to esophageal spasm from severe esophagitis as seen on CTA. Protonix 40 mg twice daily. Carafate before meals and at bedtime for now. GI cocktail as needed. (3) Diabetes: Plan Diabetes mellitus: Insulin sliding scale moderate dose protocol. Check A1c. Hypertension: Goal blood pressure less than 140/90 MNG. Continue with home dose of amlodipine, lisinopril, metoprolol. Carb controlled cardiac diet. Full code. Protonix OPD prophylaxis Heparin for DVT prophylaxis. Attestations Medical Necessity Statement*: Admission for more than 2 midnights for management of acute cystitis while cultures are awaited. Time Spent in Patient Care: Greater than 35 minutes Coding Level of Care Code Acute Aircraft Detail Draftsperson for [facility] Fwd Diagnoses Acute cystitis N30.00 Breath shortness R06.02 Diabetes E11.9
[2021-12-22 11:21] LABS: Glucose Point of Care 268 mg/dL (70-110)
[2021-12-22 11:57] LABS: Thyroid Stimulating Hormone 0.77 uIU/mL (0.27-4.20)
[2021-12-22 12:05] LABS: Procalcitonin 0.24 ng/mL (0-0.5); Vitamin B12 434 pg/mL (232-1245)
[2021-12-22 12:16] LABS: Iron 29 ug/dL (59-158)
[2021-12-22 12:17] LABS: Percent Saturation 12.1 % (20-50); Total Iron Binding Capacity 239 mcg/dl; Unsaturated Iron Binding 210 ug/dL (112-347)
[2021-12-22 12:20] LABS: Folate Level 7.1 ng/mL (4.5-32.2)
[2021-12-22] MEDS: vancomycin 1,250 MG/250 ML PIGGYBACK 250 MG IV (12:44)
[2021-12-22] MEDS: ondansetron 2 mg/ML SDV 2 mL 4 MG IVP ×2 (15:08→19:08)
[2021-12-22] MEDS: phenazopyridine 100 mg Tablet PO (16:44)
[2021-12-22] MEDS: ferrous gluconate 324 mg Tablet PO (16:44)
[2021-12-22 17:27] LABS: Glucose Point of Care 265 mg/dL (70-110)
[2021-12-22 18:24] LABS: SARS Covid-2 Antigen negative (Negative)
[2021-12-22 20:35] LABS: Glucose Point of Care 199 mg/dL (70-110)
[2021-12-22 20:35] LABS: Glucose Point of Care 268 mg/dL (70-110)
[2021-12-23] VITALS (10 sets, daily range): BP systolic 75–127; BP diastolic 41–89; PULSE 68–85; RESP 15–18; TEMP 36.8–37.7; O2SAT 90–95
[2021-12-23] MEDS: vancomycin 1,250 MG/250 ML PIGGYBACK 250 MG IV (00:12)
[2021-12-23] MEDS: piperacillin-tazobactam 3.375 GM in sodium chloride 0.9% (plus) 50 ML IV ×3 (00:13→15:34)
[2021-12-23] MEDS: phenazopyridine 100 mg Tablet PO ×2 (00:23→15:33)
[2021-12-23] MEDS: acetaminophen 325 mg Tablet 650 MG PO (00:24)
[2021-12-23] MEDS: sodium chloride 0.9% 1,000 ML 75 ML IV ×2 (04:59→11:02)
[2021-12-23 05:01] LABS: Basophils % 0.2 %; Eosinophils % 0.1 %; Hematocrit 41.3 % (42.0-52.0); Hemoglobin 13.8 g/dL (11.7-16.6); Lymphocytes # 0.9 10^3/uL (0.8-4.8); Lymphocytes % 4.3 %; Mean Corpuscular HGB Conc 33.4 g/dL (30.0-36.0); Mean Corpuscular Hemoglobin 31.7 pg (28.0-34.0); Mean Corpuscular Volume 94.9 fl (80-94); Mean Platelet Volume 10.1 fL (7.4-10.4); Monocytes % 8.9 %; Neutrophils # 18.95 10^3/uL (1.8-7.7); Neutrophils % 85.6 %; Nucleated Red Blood Cells % 0 %; Platelet Count 114 10^3/cmm (130-400); Red Blood Count 4.35 10^6/uL (4.1-5.3); Red Cell Distribution Width 12.6 % (12.1-15.1); White Blood Count 22.1 10^3/uL (4.0-10.0)
[2021-12-23 05:43] LABS: Alanine Aminotransferase 13 U/L (0-41); Albumin Level 3.1 g/dL (3.5-5.2); Alkaline Phosphatase 68 U/L (40-130); Anion Gap 17.1 (5-19); Aspartate Amino Transferase 9 U/L (0-40); Blood Urea Nitrogen 19 mg/dL (8-23); Calcium 8.8 mg/dL (8.5-10.5); Carbon Dioxide 25 mmol/L (22-29); Chloride 99 mmol/L (98-107); Chol HDL Ratio 2.18 mg/dL (1.0-5.00); Cholesterol 83 mg/dL (0-200); Globulin 2.7 g/dL (1.3-4.6); Glomerular Filtration Rate 37.9 mL/min (90-130); Glucose 134 mg/dL (65-115); HDL Cholesterol 38 mg/dL (60-100); LDL Cholesterol Calculated 22 mg/dL (50-129); Osmolality Calculated 288 mOsm/kg (285-295); Potassium 4.1 mmol/L (3.5-5.1); Sodium 137 mmol/L (136-145); Total Bilirubin 1.4 mg/dL (0.15-1.2); Total Protein 5.8 g/dL (6.6-8.7); Triglycerides 116 mg/dL (0-150); VLDL Cholestrol Calculation 23 mg/dL (0-30)
[2021-12-23 05:45] LABS: Estmated Average Glucose 154
[2021-12-23 08:25] LABS: Glucose Point of Care 136 mg/dL (70-110)
[2021-12-23] MEDS: sertraline 50 mg Tablet PO (09:08)
[2021-12-23] MEDS: enoxaparin 40 mg/0.4 mL Syringe SUBCUT (09:08)
[2021-12-23] MEDS: ferrous gluconate 324 mg Tablet PO ×2 (09:09→17:31)
[2021-12-23] MEDS: atorvastatin 40 mg Tablet PO (09:09)
[2021-12-23] MEDS: pantoprazole DR 40 mg Tablet PO ×2 (09:09→17:27)
--- NOTE | 2021-12-23 09:29 | PC.NURSE ---
Dr. Vigil notified of patient being hypotensive this am , ordered fluid bolus.
--- NOTE | 2021-12-23 10:03 | PC.NURSE ---
Patients antihypertensives were held this morning per Doctor Yaritza.
[2021-12-23] MEDS: sodium chloride 0.9% 500 ML 999 ML IV (10:04)
--- NOTE | 2021-12-23 10:08 | PC.CHAP ---
Pastoral Care Encounter/Spiritual Assessment Type of Contact [] Declined line fixer visit [] Patient/Family/Request visit [] Outpatient visit [] Follow-up visit [] Physician referral [] Code/Alert [x] Routine visit [] Staff referral [] Actively dying [] Patient sleeping [] Family support [] [] Out of room [] Palliative care [] [] Receiving care in room [] Pre-surgical visit [] Trauma [] Long length of stay [] ICU visit [] Other: Relational/Emotional Strength [] Patient feels connected with others/family/visitors/staff [] Distress [] Loneliness/isolation [] Abandonment Spirituality of Patient [] Person of Sejal [] Attends Rastafarian of their Sejal [] Believes in Prayer [] Reads Bible or Advent materials [] There are Spiritual issues to be addressed Continuous Dryout Operator Interventions [x] Prayer [] Active listening [] Non-anxious presence [] Spiritual/emotional support [] Crisis/trauma care [] Spiritual counseling [] Bereavement support [] Provided bereavement packet [] Provided Bible/devotional materials [] Provided toy/stuffed animal, coloring book to patient or family member [] Provided Communion [] Anointing/[place] [] Salvation [x Completed spiritual assessment [] Other: Impact on Illness or Injury [] Angry [] Fearful [] Anxious [] Often cries [] Exhaustion [] Unable to work [] Unable to attend restoration [] Unable to walk/stand [] Unable to read [] Unable to drive [] Unable to eat/drink [] Unable to sleep [] Unable to be with family [] Patient intubated [] Other: Summary in Time spent with patient 5 m
[2021-12-23 11:04] LABS: Glucose Point of Care 235 mg/dL (70-110)
[2021-12-23 12:09] LABS: Vancomycin Trough 16.1 ug/mL (10-15)
--- NOTE | 2021-12-23 12:47 | PM.PN ---
Subjective Subjective: No acute events overnight. Vitals/I&O/Wt Last Vital Signs Temp 98.2 F 12/23/21 11:31 Pulse 81 12/23/21 11:31 Resp 16 12/23/21 11:31 BP 117/76 12/23/21 11:31 Pulse Ox 92 12/23/21 11:31 O2 Del Method 12/23/21 11:31 12/22/21 12/23/21 12/23/21 22:59 06:59 14:59 Intake Total 1290 / 1830 1253.75 / 1253.75 Output Total 500 / 825 Balance 790 / 1005 1253.75 / 1253.75 Weight last 48 hrs Weight 104.326 kg Physical Exam Narrative: General: No acute distress, AO x3 HEENT: PERRLA, pupils bilaterally equal and reactive, pallors not present Chest: Normal vesicular breath sounds, no added sounds, equal good air entry bilaterally CVS: S1-S2 regular, no murmurs, no tachycardia, no gallops, no rubs Abdomen: Soft, nontender, no organomegaly, bowel sounds present Neuro: No focal deficits, no facial deformity, AO x3, power 5/5 in all limbs Data : 12/23/21 03:37 12/23/21 03:37 Micro: Microbiology 12/22/21 04:20 Blood Culture - Preliminary Blood NEGATIVE TO DATE 12/22/21 04:20 Blood Culture - Preliminary Blood NEGATIVE TO DATE A&P Assessment and plan (1) Sepsis: Qualifiers: Sepsis type: sepsis due to unspecified organism Sepsis acute organ dysfunction status: with acute organ dysfunction Severe sepsis acute organ dysfunction type: acute renal failure Acute renal failure type: unspecified Severe sepsis shock status: without septic shock Qualified Code(s): A41.9 - Sepsis, unspecified organism; R65.20 - Severe sepsis without septic shock; N17.9 - Acute kidney failure, unspecified (2) Acute cystitis: Sepsis. Present on admission. Ruled in with fever, leukocytosis, target organ dysfunction with shortness of breath. CT abdomen pelvis ruled out obstructive nephropathy/pyelonephritis. Follow-up urine culture, Blood culture. Prior urine culture suggestive of Enterococcus faecalis. Continue with Zosyn. Hold vancomycin. Restart Vancomycin as per trough levels. Continue with outpatient Pyridium as needed. Start on finasteride 5 mg PO QD. Normal saline at 75 cc/h. Qualifiers: Hematuria presence: with hematuria Qualified Code(s): N30.01 - Acute cystitis with hematuria (3) Hypotension: Goal blood pressure less than 140/90 mmHg with mean over 65. Hold off on antihypertensives for now. Continue with IV fluids at 100 cc/h. (4) Acute kidney injury: Baseline creatinine normal. Creatinine 1.8 today. Most likely secondary to sepsis, hypotension overnight, lisinopril at home along with contrast on admission. Medical reconciliation for nephrotoxic drugs. Monitor urine output. Monitor BMP daily for now. IV fluids as above. (5) Breath shortness: Troponin cycled negative. CTA negative for PE or pneumonia. Most likely secondary to esophageal spasm from severe esophagitis as seen on CTA. Protonix 40 mg twice daily. Carafate before meals and at bedtime for now. GI cocktail as needed. (6) Diabetes: (7) Hypertension: Takes lisinopril 40 mg, amlodipine 5 mg, Toprol 25 mg daily. Plan Diabetes mellitus: Insulin sliding scale moderate dose protocol. A1c 7.0 Carb controlled cardiac mechanical soft diet. Full code. Protonix for PUD prophylaxis Heparin for DVT prophylaxis. Attestations Medical Necessity Statement*: Requires further hospitalization for management of sepsis in setting of acute cystitis, acute kidney injury Time Spent in Patient Care: Greater than 35 minutes Coding Level of Care Code Acute Protective Services Social Worker for [facility] Fwd Diagnoses Sepsis A41.9; R65.20; N17.9 Sepsis type: sepsis due to unspecified organism Sepsis acute organ dysfunction status: with acute organ dysfunction Severe sepsis acute organ dysfunction type: acute renal failure Acute renal failure type: unspecified Severe sepsis shock status: without septic shock Acute cystitis N30.01 Hematuria presence: with hematuria Hypotension I95.9 Acute kidney injury N17.9 Breath shortness R06.02 Diabetes E11.9 Hypertension I10
[2021-12-23] MEDS: insulin lispro 100 unit/1 mL SUBCUT ×2 (13:16→21:09)
[2021-12-23] MEDS: HYDROmorphone 1 mg/mL INJ 1 mL 0.5 MG IVP (13:23)
[2021-12-23] MEDS: finasteride 5 mg Tablet PO (13:23)
[2021-12-23 17:04] LABS: Glucose Point of Care 108 mg/dL (70-110)
[2021-12-23 20:56] LABS: Glucose Point of Care 152 mg/dL (70-110)
[2021-12-23] MEDS: sodium chloride 0.9% 1,000 ML 100 ML IV (21:56)
[2021-12-24] VITALS (8 sets, daily range): BP systolic 125–131; BP diastolic 74–91; PULSE 61–69; RESP 17–20; TEMP 36.6–37.1; O2SAT 97–99
[2021-12-24] MEDS: piperacillin-tazobactam 3.375 GM in sodium chloride 0.9% (plus) 50 ML IV ×4 (00:18→23:13)
[2021-12-24] MEDS: phenazopyridine 100 mg Tablet PO ×2 (00:24→19:49)
[2021-12-24 05:03] LABS: Basophils % 0.3 %; Eosinophils # 0.2 10^3/uL (0.0-0.8); Eosinophils % 1.3 %; Hematocrit 40.8 % (42.0-52.0); Hemoglobin 13.6 g/dL (11.7-16.6); Lymphocytes # 0.9 10^3/uL (0.8-4.8); Lymphocytes % 7.6 %; Mean Corpuscular HGB Conc 33.3 g/dL (30.0-36.0); Mean Corpuscular Hemoglobin 31.6 pg (28.0-34.0); Mean Corpuscular Volume 94.9 fl (80-94); Mean Platelet Volume 9.9 fL (7.4-10.4); Monocytes # 0.9 10^3/uL (0.2-0.9); Monocytes % 8.2 %; Neutrophils # 9.31 10^3/uL (1.8-7.7); Neutrophils % 82.2 %; Nucleated Red Blood Cells % 0 %; Platelet Count 109 10^3/cmm (130-400); Red Cell Distribution Width 12.3 % (12.1-15.1); White Blood Count 11.3 10^3/uL (4.0-10.0)
[2021-12-24 05:31] LABS: Vancomycin Random 7.5 ug/mL (20.0-40.0)
[2021-12-24 05:32] LABS: Alanine Aminotransferase 13 U/L (0-41); Albumin Level 3.2 g/dL (3.5-5.2); Alkaline Phosphatase 81 U/L (40-130); Anion Gap 13.1 (5-19); Aspartate Amino Transferase 12 U/L (0-40); Blood Urea Nitrogen 16 mg/dL (8-23); Calcium 8.7 mg/dL (8.5-10.5); Carbon Dioxide 25 mmol/L (22-29); Chloride 106 mmol/L (98-107); Glomerular Filtration Rate 46.8 mL/min (90-130); Glucose 123 mg/dL (65-115); Osmolality Calculated 293 mOsm/kg (285-295); Potassium 4.1 mmol/L (3.5-5.1); Sodium 140 mmol/L (136-145); Total Bilirubin 0.8 mg/dL (0.15-1.2); Total Protein 6.2 g/dL (6.6-8.7)
[2021-12-24 06:21] LABS: Glucose Point of Care 136 mg/dL (70-110)
[2021-12-24] MEDS: atorvastatin 40 mg Tablet PO (07:56)
[2021-12-24] MEDS: finasteride 5 mg Tablet PO (07:56)
[2021-12-24] MEDS: pantoprazole DR 40 mg Tablet PO ×2 (07:57→17:14)
[2021-12-24] MEDS: ferrous gluconate 324 mg Tablet PO ×2 (07:57→17:14)
[2021-12-24] MEDS: sertraline 50 mg Tablet PO (07:57)
[2021-12-24] MEDS: enoxaparin 40 mg/0.4 mL Syringe SUBCUT (07:57)
[2021-12-24] MEDS: sodium chloride 0.9% 1,000 ML 100 ML IV ×2 (09:41→19:42)
[2021-12-24 11:08] LABS: Glucose Point of Care 173 mg/dL (70-110)
--- NOTE | 2021-12-24 11:17 | P.PN_ITS ---
Subjective Subjective: No acute events overnight. States dysuria is better but still having burning micturition at the end. Denies any nausea, vomiting, headache, dizziness. Blood pressure is better. Having few episodes of diarrhea. Vitals/I&O/Wt Last Vital Signs Temp 98.1 F 12/24/21 07:10 Pulse 68 12/24/21 07:10 Resp 18 12/24/21 07:10 BP 131/89 12/24/21 07:10 Pulse Ox 98 12/24/21 07:10 O2 Del Method 12/23/21 15:55 12/23/21 12/24/21 12/24/21 22:59 06:59 14:59 Intake Total 1225 / 2953.75 50 / 3003.75 1480 / 1480 Output Total 250 / 700 275 / 275 Balance 1225 / 2503.75 -200 / 2303.75 1205 / 1205 Physical Exam Narrative: General: No acute distress, AO x3 HEENT: PERRLA, pupils bilaterally equal and reactive, pallors not present Chest: Normal vesicular breath sounds, no added sounds, equal good air entry bilaterally CVS: S1-S2 regular, no murmurs, no tachycardia, no gallops, no rubs Abdomen: Soft, nontender, no organomegaly, bowel sounds present Neuro: No focal deficits, no facial deformity, AO x3, power 5/5 in all limbs Data : 12/24/21 04:26 12/24/21 04:26 Micro: Microbiology 12/22/21 03:00 Urine Culture - Preliminary Urine,Clean Catch Gram Negative Rods A&P Assessment and plan (1) Sepsis: Qualifiers: Sepsis type: sepsis due to unspecified organism Sepsis acute organ dysfunction status: with acute organ dysfunction Severe sepsis acute organ dysfunction type: acute renal failure Acute renal failure type: unspecified Severe sepsis shock status: without septic shock Qualified Code(s): A41.9 - Sepsis, unspecified organism; R65.20 - Severe sepsis without septic shock; N17.9 - Acute kidney failure, unspecified (2) Acute cystitis: Sepsis. Present on admission. Ruled in with fever, leukocytosis, target organ dysfunction with shortness of breath. CT abdomen pelvis ruled out obstructive nephropathy/pyelonephritis. Follow-up urine culture, Blood culture. Prior urine culture suggestive of Enterococcus faecalis. Continue with Zosyn. Hold vancomycin. Restart Vancomycin as per trough levels. Continue with outpatient Pyridium as needed. Start on finasteride 5 mg PO QD. Normal saline at 75 cc/h. Qualifiers: Hematuria presence: with hematuria Qualified Code(s): N30.01 - Acute cystitis with hematuria (3) Hypotension: Goal blood pressure less than 140/90 mmHg with mean over 65. Hold off on antihypertensives for now. Continue with IV fluids at 100 cc/h. (4) Acute kidney injury: Baseline creatinine normal. Creatinine 1.8 today. Most likely secondary to sepsis, hypotension overnight, lisinopril at home along with contrast on admission. Medical reconciliation for nephrotoxic drugs. Monitor urine output. Monitor BMP daily for now. IV fluids as above. (5) Breath shortness: Troponin cycled negative. CTA negative for PE or pneumonia. Most likely secondary to esophageal spasm from severe esophagitis as seen on CTA. Protonix 40 mg twice daily. Carafate before meals and at bedtime for now. GI cocktail as needed. (6) Diabetes: (7) Hypertension: Takes lisinopril 40 mg, amlodipine 5 mg, Toprol 25 mg daily. Plan Diabetes mellitus: Insulin sliding scale moderate dose protocol. A1c 7.0 Plan for the day: Continue with Zosyn. Hold off on vancomycin. Continue with Pyridium as needed and finasteride. Continue with normal saline at 75 cc/h. Continue to hold off on antihypertensives. Monitor BMP daily. Follow-up urine cultures. Check stool studies to rule out C. difficile. For today continue with 2 mg every 8 hourly as needed. Carb controlled cardiac mechanical soft diet. Full code. Protonix for PUD prophylaxis Heparin for DVT prophylaxis. Attestations Medical Necessity Statement*: Requires further hospitalization for management of acute cystitis, acute kidney injury Time Spent in Patient Care: Greater than 35 minutes Coding Level of Care Code Acute Overhauler Bus Truck for [facility] Fwd Diagnoses Sepsis A41.9; R65.20; N17.9 Sepsis type: sepsis due to unspecified organism Sepsis acute organ dysfunction status: with acute organ dysfunction Severe sepsis acute organ dysfunction type: acute renal failure Acute renal failure type: unspecified Severe sepsis shock status: without septic shock Acute cystitis N30.01 Hematuria presence: with hematuria Hypotension I95.9 Acute kidney injury N17.9 Breath shortness R06.02 Diabetes E11.9 Hypertension I10
[2021-12-24] MEDS: insulin lispro 100 unit/1 mL SUBCUT ×2 (12:17→21:08)
--- NOTE | 2021-12-24 16:03 | PC.NURSE ---
Pt refusing to wear cardiac monitoring.
[2021-12-24 17:09] LABS: Glucose Point of Care 124 mg/dL (70-110)
[2021-12-24] MEDS: acetaminophen 325 mg Tablet 650 MG PO (18:45)
[2021-12-24 20:44] LABS: Glucose Point of Care 148 mg/dL (70-110)
[2021-12-25] VITALS (9 sets, daily range): BP systolic 121–155; BP diastolic 73–87; PULSE 51–58; RESP 15–20; TEMP 36.6–37.1; O2SAT 95–98
[2021-12-25 05:22] LABS: Basophils % 0.3 %; Eosinophils # 0.3 10^3/uL (0.0-0.8); Eosinophils % 3.1 %; Hematocrit 38.5 % (42.0-52.0); Hemoglobin 12.6 g/dL (11.7-16.6); Lymphocytes # 1.1 10^3/uL (0.8-4.8); Lymphocytes % 11.5 %; Mean Corpuscular HGB Conc 32.7 g/dL (30.0-36.0); Mean Corpuscular Hemoglobin 30.7 pg (28.0-34.0); Mean Corpuscular Volume 93.9 fl (80-94); Mean Platelet Volume 9.9 fL (7.4-10.4); Monocytes # 0.8 10^3/uL (0.2-0.9); Monocytes % 8.2 %; Neutrophils % 76.4 %; Nucleated Red Blood Cells % 0 %; Platelet Count 118 10^3/cmm (130-400); White Blood Count 9.4 10^3/uL (4.0-10.0)
[2021-12-25] MEDS: sodium chloride 0.9% 1,000 ML 100 ML IV ×2 (05:50→20:40)
[2021-12-25 05:53] LABS: Alanine Aminotransferase 14 U/L (0-41); Alkaline Phosphatase 61 U/L (40-130); Anion Gap 13.8 (5-19); Aspartate Amino Transferase 14 U/L (0-40); Blood Urea Nitrogen 14 mg/dL (8-23); Calcium 8.9 mg/dL (8.5-10.5); Carbon Dioxide 22 mmol/L (22-29); Chloride 107 mmol/L (98-107); Glomerular Filtration Rate 55.2 mL/min (90-130); Glucose 90 mg/dL (65-115); Osmolality Calculated 288 mOsm/kg (285-295); Potassium 3.8 mmol/L (3.5-5.1); Sodium 139 mmol/L (136-145); Total Bilirubin 0.6 mg/dL (0.15-1.2)
[2021-12-25] MEDS: piperacillin-tazobactam 3.375 GM in sodium chloride 0.9% (plus) 50 ML IV ×3 (07:51→23:08)
[2021-12-25] MEDS: enoxaparin 40 mg/0.4 mL Syringe SUBCUT (07:51)
[2021-12-25] MEDS: ferrous gluconate 324 mg Tablet PO ×2 (07:52→18:01)
[2021-12-25 07:55] LABS: Glucose Point of Care 107 mg/dL (70-110)
[2021-12-25] MEDS: atorvastatin 40 mg Tablet PO (08:05)
[2021-12-25] MEDS: pantoprazole DR 40 mg Tablet PO ×2 (08:05→18:01)
[2021-12-25] MEDS: finasteride 5 mg Tablet PO (08:05)
[2021-12-25] MEDS: sertraline 50 mg Tablet PO (08:05)
--- NOTE | 2021-12-25 10:42 | PC.SOCIAL ---
IMM update Imm updated with patient at bedside. Copy of page 2 provided. Patient verbalized understanding. Copy in chart initialed, dated and timed.
[2021-12-25 11:05] LABS: Glucose Point of Care 174 mg/dL (70-110)
--- NOTE | 2021-12-25 11:44 | P.PN_ITS ---
Subjective Subjective: Seen this morning. Patient surrounded by family at bedside. Still describes burning micturition also states when he lays down he has some dribbling of urine. He says he has had laser ablation done either for bladder or prostate. Also unable to provide any details. He does follow-up with [facility] as an outpatient in [place]. He would like to follow-up with the same. Already on finasteride. Overall patient does feel better. Vitals/I&O/Wt Last Vital Signs Temp 98.0 F 12/25/21 11:33 Pulse 55 L 12/25/21 11:33 Resp 15 12/25/21 11:33 BP 137/80 12/25/21 11:33 Pulse Ox 96 12/25/21 11:33 O2 Del Method 12/25/21 11:33 12/24/21 12/25/21 12/25/21 22:59 06:59 14:59 Intake Total 1170 / 2700 1050 / 3750 360 / 360 Output Total 480 / 1030 820 / 1850 Balance 690 / 1670 230 / 1900 360 / 360 Physical Exam Narrative: General: No acute distress, AO x3 Chest: Clear to auscultation bilaterally, no wheezes no rhonchi CVS: S1-S2 regular, no murmurs, no tachycardia, no gallops, no rubs Abdomen: Soft, nontender, no organomegaly, bowel sounds present, obese rounded abdomen Neuro: Nonfocal Data : 12/25/21 04:54 12/25/21 04:54 Micro: Microbiology 12/24/21 10:17 C.difficile Toxin B Gene (PCR) - Final Stool 12/22/21 03:00 Urine Culture - Final Urine,Clean Catch Klebsiella pneumoniae A&P Assessment and plan (1) Sepsis: Qualifiers: Sepsis type: sepsis due to unspecified organism Sepsis acute organ dysfunction status: with acute organ dysfunction Severe sepsis acute organ dysf unction type: acute renal failure Acute renal failure type: unspecified Severe sepsis shock status: without septic shock Qualified Code(s): A41.9 - Sepsis, unspecified organism; R65.20 - Severe sepsis without septic shock; N17.9 - Acute kidney failure, unspecified (2) Acute cystitis: Sepsis. Present on admission. Ruled in with fever, leukocytosis, target organ dysfunction with shortness of breath. CT abdomen pelvis ruled out obstructive nephropathy/pyelonephritis. Follow-up urine culture, Blood culture. Prior urine culture suggestive of Enterococcus faecalis. Continue with Zosyn. Discontinue vancomycin. Continue with outpatient Pyridium as needed. Start on finasteride 5 mg PO QD. Normal saline at 75 cc/h. Urine culture shows Klebsiella sensitive to ceftriaxone, Levaquin, Augmentin. Will check postvoid residuals today. I have a suspicion patient must be retaining urine. I did offer him the option of having intermittent straight cath versus Sanches placement at discharge. Patient however has declined at this time. He would like to know what his postvoid residuals are and would like to follow-up with urology as an outpatient. Qualifiers: Hematuria presence: with hematuria Qualified Code(s): N30.01 - Acute cystitis with hematuria (3) Hypotension: Goal blood pressure less than 140/90 mmHg with mean over 65. Hold off on antihypertensives for now. (4) Acute kidney injury: Baseline creatinine normal. Creatinine 1.3 today. Most likely secondary to sepsis, hypotension overnight, lisinopril at home along with contrast on admission. Medical reconciliation for nephrotoxic drugs. Monitor urine output. Monitor BMP daily for now. IV fluids as above. (5) Breath shortness: Troponin cycled negative. CTA negative for PE or pneumonia. Most likely secondary to esophageal spasm from severe esophagitis as seen on CTA. Protonix 40 mg twice daily. Carafate before meals and at bedtime for now. GI cocktail as needed. (6) Diabetes: (7) Hypertension: Takes lisinopril 40 mg, amlodipine 5 mg, Toprol 25 mg daily. Plan Diabetes mellitus: Insulin sliding scale moderate dose protocol. A1c 7.0 Plan for the day: Continue with Zosyn. Hold off on vancomycin.. Continue with Pyridium as needed and finasteride. Continue with normal saline at 75 cc/h. Continue to hold off on antihypertensives. Monitor BMP daily. Urine culture grew Klebsiella. Continue Zosyn for now. Will transition to oral medication at discharge. C. difficile negative. Diarrhea most likely antibiotic associated at this point. He had 3 bowel movement yesterday. No BM today. For today continue with 2 mg every 8 hourly as needed. Check postvoid residuals today. Patient should follow-up with urology as an outpatient after discharge. Carb controlled cardiac mechanical soft diet. Full code. Protonix for PUD prophylaxis Heparin for DVT prophylaxis. Attestations 2 Medical Necessity Statement*: Requires further hospitalization for management of acute cystitis, acute kidney injury Time Spent in Patient Care: 16 - 35 minutes Coding Level of Care Code Acute [employer] Fwd Diagnoses Sepsis A41.9; R65.20; N17.9 Sepsis type: sepsis due to unspecified organism Sepsis acute organ dysfunction status: with acute organ dysfunction Severe sepsis acute organ dysfunction type: acute renal failure Acute renal failure type: unspecified Severe sepsis shock status: without septic shock Acute cystitis N30.01 Hematuria presence: with hematuria Hypotension I95.9 Acute kidney injury N17.9 Breath shortness R06.02 Diabetes E11.9 Hypertension I10
[2021-12-25] MEDS: insulin lispro 100 unit/1 mL SUBCUT ×2 (12:00→22:02)
[2021-12-25 17:06] LABS: Glucose Point of Care 126 mg/dL (70-110)
[2021-12-25] MEDS: phenazopyridine 100 mg Tablet PO (20:39)
[2021-12-25 20:55] LABS: Glucose Point of Care 163 mg/dL (70-110)
[2021-12-26 04:00] VITALS: BP 104/66; PULSE 50; RESP 16; TEMP 36.9; O2SAT 94
[2021-12-26 06:23] LABS: Anion Gap 11.8 (5-19); Blood Urea Nitrogen 14 mg/dL (8-23); Calcium 8.7 mg/dL (8.5-10.5); Carbon Dioxide 21 mmol/L (22-29); Chloride 108 mmol/L (98-107); Glomerular Filtration Rate 55.2 mL/min (90-130); Glucose 105 mg/dL (65-115); Osmolality Calculated 285 mOsm/kg (285-295); Potassium 3.8 mmol/L (3.5-5.1); Sodium 137 mmol/L (136-145)
[2021-12-26 06:35] LABS: Glucose Point of Care 109 mg/dL (70-110)
[2021-12-26 06:52] VITALS: RESP 14
[2021-12-26 08:00] VITALS: BP 169/96; PULSE 58; RESP 16; TEMP 37.1; O2SAT 96
[2021-12-26] MEDS: piperacillin-tazobactam 3.375 GM in sodium chloride 0.9% (plus) 50 ML IV (08:23)
[2021-12-26] MEDS: enoxaparin 40 mg/0.4 mL Syringe SUBCUT (08:24)
[2021-12-26] MEDS: atorvastatin 40 mg Tablet PO (08:25)
[2021-12-26] MEDS: ferrous gluconate 324 mg Tablet PO (08:25)
[2021-12-26] MEDS: finasteride 5 mg Tablet PO (08:25)
[2021-12-26] MEDS: sertraline 50 mg Tablet PO (08:25)
[2021-12-26] MEDS: pantoprazole DR 40 mg Tablet PO (08:25)
[2021-12-26] MEDS: sodium chloride 0.9% 1,000 ML 100 ML IV (08:32)
[2021-12-26 12:00] VITALS: BP 144/74; PULSE 56; RESP 16; TEMP 36.9; O2SAT 97
[2021-12-26 12:40] LABS: Glucose Point of Care 182 mg/dL (70-110)
[2021-12-26] MEDS: insulin lispro 100 unit/1 mL SUBCUT (12:43)
[2021-12-26] MEDS: phenazopyridine 100 mg Tablet PO (12:43)
--- NOTE | 2021-12-26 12:54 | P.DS_ITS ---
Discharge Providers Date of Admission: 12/22/21 06:35 Date of Discharge: December 26, 2021 Attending Provider at Admission: Sabrina Hackett MD Attending Provider at Discharge: Baylee Reyes MD Primary Care Provider: NAVJOT Milian Diagnoses at Discharge Discharge Diagnosis (1) Sepsis: Status: Resolved Qualifiers: Acute renal failure type: unspecified Sepsis acute organ dysfunction status: with acute organ dysfunction Sepsis type: sepsis due to unspecified org anism Severe sepsis acute organ dysfunction type: acute renal failure Severe sepsis shock status: without septic shock Qualified Code(s): A41.9 - Sepsis, unspecified organism; R65.20 - Severe sepsis without septic shock; N17.9 - Acute kidney failure, unspecified (2) Acute cystitis: Status: Resolved Qualifiers: Hematuria presence: with hematuria Qualified Code(s): N30.01 - Acute cystitis with hematuria (3) Hypotension: Status: Resolved (4) Acute kidney injury: Status: Acute (5) Breath shortness: Status: Resolved (6) Diabetes: Status: Acute (7) Hypertension: Status: Acute Reason for Visit Reason for Visit: SOB Brief History: Edilberto Noriega is a 66 year old male with past medical history of hypertension, renal stones in the past, Enterococcus UTI, diabetes presents to the ER today because of burning in painful micturition for last 24 to 48 hours associated with nausea and feeling disoriented.? Patient was also complaining of central chest pain prior to coming to the ER. In the ER blood work showed a WBC of 23,000, sodium 134, creatinine of 1.1, bilirubin of 1.3, CTA chest was done which ruled out pulmonary embolism or pneumonia but was concerning for esophagitis, UA was concerning for acute cystitis. Hospital Course Hospital Course Patient admitted for sepsis secondary to UTI/acute cystitis. CT abdomen pelvis ruled out obstructive nephropathy and pyelonephritis. Prior urine culture suggestive of Enterococcus faecalis. Urine culture positive for Klebsiella sensitive to ceftriaxone Levaquin and Augmentin. Postvoid residuals done showing 20% in bladder. Patient preferred to follow-up with his urologist and was not interested in Sanches catheter or straight cath at this time regardless of results of postvoid residuals. He follows with Dr. Kent and will follow up after discharge. Patient remained on Zosyn during hospital stay until urine culture resulted. CTA negative for PE or pneumonia. Troponin cycled. He did have esophageal spasm from severe esophagitis on CTA. Also had JUAREZ during hospital stay. Baseline creatinine seems to be between 1.2-1.3. At baseline at time of discharge. He did complain of some pain in the urethra at the end of urination for which she was on Pyridium. We will continue that for now. Patient will follow up with urology. Physical Exam Narrative: General: No acute distress, AO x3 Chest: Clear to auscultation bilaterally, no wheezes no rhonchi CVS: S1-S2 regular, no murmurs, no tachycardia, no gallops, no rubs Abdomen: Soft, nontender, no organomegaly, bowel sounds present, obese rounded abdomen Neuro: Nonfocal Discharge Data Studies Completed and Pending Completed Studies During Hospitalization Category Date Time Status CT abdomen renal stone [CT kidney stone 36442] Routine Cat Scan 12/22/21 06:35 Completed CTA chest [CT angio chest PE protcl [id number]] Stat Cat Scan 12/22/21 02:42 Completed XR chest 1V portable [id number] Stat Exams 12/22/21 02:39 Completed Pending at discharge Category Date Time Status Blood Culture Stat Lab 12/22/21 04:20 Results Radiology Impressions Chest X-Ray 12/22/21 02:39 IMPRESSION: No evidence of active cardiopulmonary disease. Chest CTA 12/22/21 02:42 IMPRESSION: 1. No pulmonary embolus or other acute pathology in the chest. 2. Left thyroid lobe nodule. Further evaluation with dedicated ultrasound in a non-emergent basis is recommended. COMMENTS: Consistent with the [employer]'s Incidental Findings Committee white paper (J Am Jennifer Radiol 2015): In patients aged 35 years and older with an incidental thyroid nodule equal to or greater than 1.[address], MRI or extrathyroidal US, further evaluation with dedicated thyroid US is recommended for patients with normal life expectancy and without comorbidities. For smaller nodules without suspicious features, no further evaluation or follow up is recommended. Abdomen/Pelvis CT 12/22/21 06:35 IMPRESSION: 1. Residual contrast from recent CTA. No hydronephrosis. Contrast excretion visualized in both ureters and bladder. 2. Diffuse bladder wall thickening can be seen with chronic bladder outlet obstruction or chronic cystitis. Enlarged prostate measuring 5.5 cm with prior TURP. 3. Normal caliber abdominal aorta. 4. RIGHT lower pole renal cyst measuring 1.2 CM. 5. Sigmoid diverticulosis. 6. No other acute findings. Laboratory Results WBC 9.4 10^3/uL (4.0-10.0) 12/25/21 04:54 RBC 4.10 10^6/uL (4.1-5.3) 12/25/21 04:54 Hgb 12.6 g/dL (11.7-16.6) 12/25/21 04:54 Hct 38.5 % (42.0-52.0) L 12/25/21 04:54 MCV 93.9 fl (80-94) 12/25/21 04:54 MCH 30.7 pg (28.0-34.0) 12/25/21 04:54 MCHC 32.7 g/dL (30.0-36.0) 12/25/21 04:54 RDW 12.0 % (12.1-15.1) L 12/25/21 04:54 Plt Count 118 10^3/cmm (130-400) L 12/25/21 04:54 MPV 9.9 fL (7.4-10.4) 12/25/21 04:54 Neut % (Auto) 76.4 % 12/25/21 04:54 Lymph % (Auto) 11.5 % 12/25/21 04:54 [place] % (Auto) 8.2 % 12/25/21 04:54 Eos % (Auto) 3.1 % 12/25/21 04:54 Baso % (Auto) 0.3 % 12/25/21 04:54 Neut # (Auto) 7.20 10^3/uL (1.8-7.7) 12/25/21 04:54 Lymph # (Auto) 1.1 10^3/uL (0.8-4.8) 12/25/21 04:54 [place] # (Auto) 0.8 10^3/uL (0.2-0.9) 12/25/21 04:54 Eos # (Auto) 0.3 10^3/uL (0.0-0.8) 12/25/21 04:54 Baso # (Auto) 0.0 10^3/uL (0.0-0.1) 12/25/21 04:54 Nucleated RBC % (auto) 0 % 12/25/21 04:54 Nucleated RBCs # 0.0 /100WBC 12/25/21 04:54 PT 13.60 SECONDS (12.1-14.9) 12/22/21 02:42 INR 1.01 (0.8-1.2) 12/22/21 02:42 D-Dimer 1.10 ug/mIFEU (0-0.59) H 12/22/21 02:42 Sodium 137 mmol/L (136-145) 12/26/21 05:44 Potassium 3.8 mmol/L (3.5-5.1) 12/26/21 05:44 Chloride 108 mmol/L (98-107) H 12/26/21 05:44 Carbon Dioxide 21 mmol/L (22-29) L 12/26/21 05:44 Anion Gap 11.8 (5-19) 12/26/21 05:44 BUN 14 mg/dL (8-23) 12/26/21 05:44 Creatinine 1.3 mg/dL (0.7-1.2) H 12/26/21 05:44 GFR Calculation 55.2 mL/min (90-130) L 12/26/21 05:44 Glucose 105 mg/dL (65-115) 12/26/21 05:44 POC Glucose 182 mg/dL (70-110) H 12/26/21 12:37 Estimat Average Glucose 154 12/23/21 03:37 Hemoglobin A1c 7.0 % (4.0-6.0) H 12/23/21 03:37 Calculated Osmolality 285 mOsm/kg (285-295) 12/26/21 05:44 Calcium 8.7 mg/dL (8.5-10.5) 12/26/21 05:44 Iron 29 ug/dL (59-158) L 12/22/21 02:42 TIBC 239 mcg/dl 12/22/21 02:42 % Saturation 12.1 % (20-50) L 12/22/21 02:42 Unsat Iron Binding 210 ug/dL (112-347) 12/22/21 02:42 Total Bilirubin 0.6 mg/dL (0.15-1.2) 12/25/21 04:54 AST 14 U/L (0-40) 12/25/21 04:54 ALT 14 U/L (0-41) 12/25/21 04:54 Alkaline Phosphatase 61 U/L (40-130) 12/25/21 04:54 Troponin T Baseline 14 ng/L (0-15) 12/22/21 02:42 Troponin T 120 Minute 16.45 ng/L (0-15) H 12/22/21 04:20 Delta Troponin T 2.45 ABS# (0-10) 12/22/21 04:20 Troponin T Hi Sens 6Hr 17.35 ng/L (0-15) H 12/22/21 08:26 Troponin T Hi Sens 6Hr Delta 3.35 ng/L (0-12) 12/22/21 08:26 NT-Pro-B Natriuret Pep 201 pg/mL (0-125) H 12/22/21 02:42 Total Protein 6.0 g/dL (6.6-8.7) L 12/25/21 04:54 Albumin 3.0 g/dL (3.5-5.2) L 12/25/21 04:54 Globulin 3.0 g/dL (1.3-4.6) 12/25/21 04:54 Triglycerides 116 mg/dL (0-150) 12/23/21 03:37 Cholesterol 83 mg/dL (0-200) 12/23/21 03:37 LDL Cholesterol, Calc 22 mg/dL (50-129) L 12/23/21 03:37 Total VLDL Cholesterol 23 mg/dL (0-30) 12/23/21 03:37 HDL Cholesterol 38 mg/dL (60-100) L 12/23/21 03:37 Cholesterol/HDL Ratio 2.18 mg/dL (1.0-5.00) 12/23/21 03:37 Vitamin B12 434 pg/mL (232-1245) 12/22/21 02:42 Folate 7.1 ng/mL (4.5-32.2) 12/22/21 11:27 Procalcitonin 0.24 ng/mL (0-0.5) 12/22/21 02:42 TSH 0.77 uIU/mL (0.27-4.20) 12/22/21 02:42 Urine Color Yellow (Yellow) 12/22/21 03:00 Urine Appearance Cloudy (CLEAR) A 12/22/21 03:00 Urine pH 5 (5-7) 12/22/21 03:00 Ur Specific [place] 1.015 (1.005-1.030) 12/22/21 03:00 Urine Protein 1+ (Negative) H 12/22/21 03:00 Urine Glucose (UA) Norm (Normal) 12/22/21 03:00 Urine Ketones 1+ (Negative) H 12/22/21 03:00 Urine Blood 3+ (Negative) H 12/22/21 03:00 Urine Nitrate Negative (Negative) 12/22/21 03:00 Urine Bilirubin Neg (Negative) 12/22/21 03:00 Urine Urobilinogen Norm mg/dL (Negative) 12/22/21 03:00 Ur Leukocyte Esterase 2+ (Negative) H 12/22/21 03:00 Urine RBC Too numerous to cnt /hpf (0-2) H 12/22/21 03:00 Urine WBC Too numerous to cnt /hpf (0-5) H 12/22/21 03:00 Ur Squamous Epith Cells 0-4 /hpf (0-5) H 12/22/21 03:00 Amorphous Sediment Not Reportable 12/22/21 03:00 Urine Bacteria 3+ /hpf (NONE) H 12/22/21 03:00 Vancomycin Trough 16.1 ug/mL (10-15) H 12/23/21 11:13 Random Vancomycin 7.5 ug/mL (20.0-40.0) L 12/24/21 04:26 SARS-CoV-2 Ag (Rapid) negative (Negative) 12/22/21 17:20 Vitals Last Vital Signs Temp 98.8 F 12/26/21 08:00 Pulse 58 L 12/26/21 08:00 Resp 16 12/26/21 08:00 BP 169/96 12/26/21 08:00 Pulse Ox 96 12/26/21 08:00 O2 Del Method 12/25/21 15:57 Discharge Plan Discharge Patient Disposition: Home Condition: Stable Prescriptions: New finasteride 5 mg Tablet 5 mg PO DAILY 30 Days Qty: 30 0RF ferrous gluconate 324 mg (37.5 mg iron) Tablet 324 mg PO BIDWM 30 Days Qty: 30 0RF levofloxacin 500 mg tablet 500 mg PO Q24H 10 Days Qty: 10 0RF sucralfate 1 gram tablet 1 g PO TID 14 Days Qty: 42 0RF Continued lisinopril 20 mg tablet 20 mg PO DAILY hydromorphone 4 mg tablet 4 mg PO Q6H PRN (Reason: Pain) Trulicity 0.75 mg/0.5 mL pen injector 0.75 mg SUBCUT DIRECTED Rx Instructions: (ON TUESDAYS) omeprazole 40 mg capsule,delayed release(DR/EC) 40 mg PO DAILY sertraline 50 mg Tablet 50 mg PO DAILY rosuvastatin 10 mg tablet 10 mg PO DAILY amlodipine 10 mg tablet 5 mg PO DAILY Qty: 0 0RF phenazopyridine [Pyridium] 100 mg tablet 100 mg PO TID PRN (Reason: pain) Qty: 7 0RF Discontinued metoprolol succinate 25 mg tablet extended release 24 hr 25 mg PO DAILY Discharge Orders: Discharge Order (Routine); Ordered 12/26/21 Ordered By: Baylee Reyes Referrals: Ezequiel Kent MD [Referring] - 01/12/22 1:15 pm York,NAVJOT Olvera [Primary Care Provider] - 4-7 days ([facility] will call you with a date and time for your follow up appointment.) Discharge Diet: Usual diet Discharge Activity: Resume usual activity Patient Instructions: Iron Supplements (By mouth), Finasteride (By mouth), Levofloxacin (By mouth), Catheter-associated Urinary Tract Infection (DC), Opioid Safety Discharge Attestations Time Spent in Discharge Care*: less than 30 min Quality Metrics Clinical Quality Measures [ No reported AMI, CVA or VTE this stay] Coding Level of Care Code Acute Chg FW DC note Diagnoses Sepsis A41.9; R65.20; N17.9 Acute renal failure type: unspecified Sepsis acute organ dysfunction status: with acute organ dysfunction Sepsis type: sepsis due to unspecified organism Severe sepsis acute organ dysfunction type: acute renal failure Severe sepsis shock status: without septic shock Acute cystitis N30.01 Hematuria presence: with hematuria Hypotension I95.9 Acute kidney injury N17.9 Breath shortness R06.02 Diabetes E11.9 Hypertension I10
--- NOTE | 2021-12-26 14:46 | PC.NURSE ---
Discussed discharge follow up appointments, new medications and stopped medications. Verbalized understanding.
[2021-12-26 14:47] VITALS: BP 144/74; PULSE 56; RESP 16; TEMP 36.9; O2SAT 97
== END 2021-12-26 14:25 | disposition home or self-care (01) | DRG 872 ==
LOC: ER 04:36 → MEDSURG 04:53
PROVIDERS: Student in an Organized Health Care Education/Training Program; Admitting Provider Student in an Organized Health Care Education/Training Program; Emergency Provider Emergency Medicine; PCP Nurse Practitioner Family; Visit Provider Internal Medicine
DX: A41.9 Sepsis, unspecified organism (principal); N30.01 Acute cystitis with hematuria; N17.9 Acute kidney failure, unspecified; B96.1 Klebsiella pneumoniae [K. pneumoniae] as the cause of diseases classified elsewhere; R65.20 Severe sepsis without septic shock; I10 Essential (primary) hypertension; Z87.442 Personal history of urinary calculi; Z87.440 Personal history of urinary (tract) infections; E11.9 Type 2 diabetes mellitus without complications; I95.9 Hypotension, unspecified; K22.4 Dyskinesia of esophagus; Z79.85 Long-term (current) use of injectable non-insulin antidiabetic drugs; Z79.891 Long term (current) use of opiate analgesic
CPT/HCPCS: 36415; 36416; 51798; 71045; 71275; 74176; 80048; 80053; 80061; 80202; 81001; 82607; 82746; 82962; 83036; 83540; 83550; 83880; 84145; 84443; 84484; 85025; 85378; 85610; 87040; 87077; 87086; 87186; 87426; 87493; 93005; 96365; 96372; 99285; J0696; J1170; J1650; J1815; J2405; J2543; J3370; J7030; J7040; Q9967

== ENCOUNTER 2022-03-21 15:26 | Outpatient (CLI) | payer MEDICARE, MEDICAID, SELFPAY ==
--- NOTE | 2022-03-21 | US_ITS ---
WS: [id number] THYROID ULTRASOUND HISTORY: NODULE COMPARISON: CT chest 12/22/2021. Right lobe: 1.6 cm x 2.3 cm x 4.7 cm (w x ap x l). Volume: 9.2 cm3. Normal size gland. Hyperechoic nodule inferior pole measures 1.4 x 1.1 x 1.4 cm. A mild increased vas cularity. No echogenic foci. There is an additional hypoechoic nodule in the superficial mid RIGHT th yroid measuring 1.4 x 0.7 x 1.2 cm. There are few spongiform nodules scattered throughout the remaini ng gland. These are much smaller in size. Left lobe: 2.7 cm x 2.6 cm x 5.7 cm (w x ap x l). Volume: 20.6 cm3. Enlarged thyroid. Lobulated hypoechoic nodule with mild increased vascularity in the superior pole me asures 1.9 x 1.4 x 2.0 cm. Margins are slightly lobulated and there are a few tiny echogenic foci. Th ere is an additional cystic nodule in the inferior pole measuring 2.0 x 1.8 x 2.3 cm. Large cystic co mponent. These are typically benign. Isthmus: 0.4 cm. US/US thyroid [id number] IMPRESSION: 1. Ultrasound-guided fine-needle aspiration solid nodule LEFT thyroid superior pole measuring 1.9 x 1.4 x 2.0 cm (TI-RADS 4). 2. The remaining nodules by criteria are less suspicious. The remaining nodule s should undergo yearly ultrasound evaluations.
== END 2022-03-21 15:27 | disposition home or self-care (01) ==
LOC: RAD 15:27
PROVIDERS: PCP Nurse Practitioner Family; Visit Provider Family Medicine
DX: E04.1 Nontoxic single thyroid nodule (principal)
CPT/HCPCS: 76536

== ENCOUNTER → 2022-04-25 13:36 | Outpatient (BNVA) | payer MEDICARE, MEDICAID, SELFPAY | PROVIDERS: PCP Nurse Practitioner Family; Referring Provider Family Medicine; Visit Provider Internal Medicine | DX: E04.1 Nontoxic single thyroid nodule (principal) | CPT/HCPCS: 99203 ==

== ENCOUNTER 2022-05-25 07:24 | Outpatient (CLI) | payer MEDICARE, MEDICAID, SELFPAY ==
--- NOTE | 2022-05-25 08:45 | US_ITS ---
WS: [id number] ULTRASOUND THYROID FNA CLINICAL INFORMATION: Solid nodule TECHNIQUE: Ultrasound-guided FNA FINDINGS: The procedure including risks, benefits, and complications were discussed with the patient who agreed to proceed. Timeout was performed. Using sterile technique patient was prepped and draped in usual sterile fashion. After 1% lidocaine, using ultrasound guidance, a 25-gauge needle was advanc ed into the LEFT upper pole thyroid nodule. 5 passes were made with active aspiration. Pathology was present for slide preparation. No immediate complications. Patient remained in the ultrasound suite 10 minutes postprocedure with intermittent ultrasound to ens ure no hematoma. No hematoma 10 minutes postprocedure. US/US biopsy/FNA thyroid [id number] IMPRESSION: Uncomplicated ultrasound-guided thyroid FNA Cytology is pending.
== END 2022-05-25 07:25 | disposition home or self-care (01) ==
PROVIDERS: PCP Nurse Practitioner Family; Visit Provider Internal Medicine
DX: E04.1 Nontoxic single thyroid nodule (principal)
CPT/HCPCS: 10005; 88173

== ENCOUNTER → 2022-09-29 08:39 | Outpatient (BNVA) | payer MEDICARE, MEDICAID, SELFPAY | PROVIDERS: PCP Nurse Practitioner Family; Visit Provider Surgery | DX: K59.00 Constipation, unspecified (principal); K62.89 Other specified diseases of anus and rectum; Z12.11 Encounter for screening for malignant neoplasm of colon | CPT/HCPCS: 99203 ==

== ENCOUNTER 2022-10-09 08:38 | Outpatient (CLI) | payer MEDICARE, MEDICAID, SELFPAY ==
[2022-10-09 09:57] LABS: Free T4 Free Thyroxine 1.31 ng/dL (0.82-1.77)
[2022-10-10 07:48] LABS: T3 Total 117 ng/dL (76-181)
== END 2022-10-09 08:39 | disposition home or self-care (01) ==
LOC: LAB 08:42
PROVIDERS: PCP Nurse Practitioner Family; Visit Provider Internal Medicine
DX: E04.1 Nontoxic single thyroid nodule (principal)
CPT/HCPCS: 36415; 84439; 84443; 84480

== ENCOUNTER → 2022-10-10 14:03 | Outpatient (BNVA) | payer MEDICARE, MEDICAID, SELFPAY | PROVIDERS: PCP Nurse Practitioner Family; Visit Provider Internal Medicine | DX: E04.1 Nontoxic single thyroid nodule (principal); E04.2 Nontoxic multinodular goiter; E11.9 Type 2 diabetes mellitus without complications | CPT/HCPCS: 99213; 99214 ==

== ENCOUNTER 2022-10-19 07:49 | Day surgery (SDC) | payer MEDICARE, MEDICAID, SELFPAY ==
[2022-10-17 09:53] VITALS: BMI 36.0
[2022-10-19 08:05] VITALS: BP 133/79; PULSE 61; RESP 16; TEMP 36.1; O2SAT 97
[2022-10-19] MEDS: sodium chloride 0.9% 1,000 ML 30 ML IV (08:21)
--- NOTE | 2022-10-19 08:30 | ANES.PREANE2 ---
Pre-Anesthetic Assessment Height/Weight: Height 1.7 m Weight 104.326 kg Temp Pulse Resp BP Pulse Ox O2 Del Method 97.0 F L 61 16 133/79 97 Room Air 10/19/22 08:05 10/19/22 08:05 10/19/22 08:05 10/19/22 08:05 10/19/22 08:05 10/19/22 08:05 Operation Date: 10/19/22 10:15 Proposed Procedures p Colonoscopy 72540, K59.00, K62.89, Z12.11(Not Applicable) - Toni Gurrola MD Familial anesthetic complications: none Was Beta Win taken within 24 hours: N/A (took lisinopril this AM) Was Clonidine taken within 24 hours: N/A Last intake: Intake Last Liquid Date 10/18/22 Last Liquid Time 20:00 Last Solid Date 10/17/22 Last Solid Time 09:00 Social No alcohol and No tobacco Exam alert and oriented x 3 Airway Submandibular: within normal limits Cervical ROM: within normal limits Mallampati: Class III Comments: Comments: poor dentition front top teeth, none reported loose Pulmonary None reported CV/HEM Hypertension None reported Hepatic None reported GI Gastroesophageal Reflux Disease Metabolic Diabetes Mellitus, Hyperlipidemia and Morbid Obesity [facility] [place] None reported Neuropsych None reported Anesthetic Plan ASA status: 3 Anesthesia: Anesthesia Evaluation, General and MAC Medications/Allergies Home Medications Medication Instructions Recorded Confirmed Last Taken Type hydromorphone 4 mg tablet 4 mg PO Q6H PRN Pain 07/29/19 10/19/22 10/19/22 History lisinopril 20 mg tablet 20 mg PO DAILY 07/29/19 10/19/22 10/19/22 History dulaglutide 0.75 mg/0.5 mL 0.75 mg SUBCUT DIRECTED 07/31/19 10/17/22 10/12/22 History subcutaneous pen injector (Trulicity) omeprazole 40 mg capsule,delayed 40 mg PO DAILY 01/26/20 10/19/22 10/18/22 History release rosuvastatin 10 mg tablet 10 mg PO DAILY 01/26/20 10/19/22 10/18/22 History sertraline 50 mg tablet 50 mg PO DAILY 01/26/20 10/19/22 10/18/22 History psyllium husk 0.4 gram capsule 0.4 g PO DAILY #30 caps 07/28/23 08/17/23 08/16/23 Rx (Fiber (psyllium husk)) Allergies Allergy/AdvReac Type Severity Reaction Status Date / Time sulfamethoxazole Allergy ALGY-Rash Verified 10/17/22 09:48 [From Bactrim] trimethoprim [From Bactrim] Allergy ALGY-Rash Verified 10/17/22 09:48 Current Medications Generic Name Dose Route Start Last Admin Trade Name Freq PRN Reason Stop Dose Admin Sodium Chloride 1,000 mls @ 30 mls/hr 10/19/22 08:00 10/19/22 08:21 Sodium Chloride 0.9% IV 30 mls/hr .Q24H TREVOR Administration PFSH Anesthesia Medical History Diabetes Hypertension Surgical History Knee joint replacement status Social History Smoking and tobacco status: current every day smoker smokeless tobacco Smokeless tobacco user: chewing tobacco Alcohol intake: never Substance/Drug Use: never Data Anesthesia Cardiac Studies: No Data to Display
[2022-10-19 09:59] VITALS: BP 92/61; PULSE 52; RESP 12; TEMP 36.1; O2SAT 100
[2022-10-19 10:15] VITALS: BP 114/64; PULSE 50; RESP 18; O2SAT 97
--- NOTE | 2022-10-19 10:30 | ANE.PACU2 ---
Inpatient post-anesthesia follow up: Airway intact: Yes Vital signs: Temperature 97 F Pulse Rate 50 Respiratory Rate 18 Blood Pressure 114/64 Pulse Oximetry 97 Oxygen Delivery Me thod Room Air Oxygen Flow Rate Fraction of Inspir ed Oxygen Hydration adequate: Yes Nausea and vomiting: No Pain level: 1 Mental status: Baseline
--- NOTE | 2022-10-19 10:57 | P.HPUD_ITS ---
Surgery/Procedure H&P Update DATE OF PROCEDURE: October 19, 2022 DATE H&P PERFORMED: 09/29/22 H&P UPDATE INFORMATION: I have reviewed H&P completed within last 30 days, I have examined patient prior to procedure, No changes to prior documentation and H[place] is [place] [facility] [place] indicated PLANNED PROCEDURE: Operation Date: 10/19/22 10:15 Proposed Procedures p Colonoscopy 13002, K59.00, K62.89, Z12.11(Not Applicable) - Toni Gurrola MD
== END 2022-10-19 10:45 | disposition home or self-care (01) ==
PROVIDERS: PCP Nurse Practitioner Family; Visit Provider Surgery
PROC: 0DJD8ZZ Inspection of Lower Intestinal Tract, Via Natural or Artificial Opening Endoscopic (ICD-10-PCS; CPT 45378; principal; 2022-10-19 10:15)
DX: K59.00 Constipation, unspecified (principal); K62.89 Other specified diseases of anus and rectum; Z83.71 Family history of colonic polyps; D12.3 Benign neoplasm of transverse colon; K57.30 Diverticulosis of large intestine without perforation or abscess without bleeding
CPT/HCPCS: 45385; 88305; J2704; J7030

== ENCOUNTER → 2022-11-02 13:04 | Outpatient (BNVA) | payer MEDICARE, MEDICAID, SELFPAY | PROVIDERS: PCP Nurse Practitioner Family; Visit Provider Surgery | DX: Z09 Encounter for follow-up examination after completed treatment for conditions other than malignant neoplasm (principal) | CPT/HCPCS: 99213 ==

== ENCOUNTER 2023-07-03 17:27 | Emergency (ER) | payer MEDICARE, MEDICAID, SELFPAY ==
[2023-07-03 17:32] VITALS: BP 145/80; PULSE 76; RESP 16; TEMP 37.4; O2SAT 98
--- NOTE | 2023-07-03 17:46 | ECG_ITS ---
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 Measurements Intervals [place] Rate: 73 P: -72 KS: 365 QRS: -24 QRSD: 97 T: 82 QT: 367 QTc: 406 Interpretive Statements SUPRAVENTRICULAR RHYTHM Compared to ECG 12/22/2021 09:09:53 Sinus rhythm no longer present Left-axis deviation no longer present T-wave abnormality no longer present Electronically Signed On 07-04-2023 17:00:32 CDT by Hood Appiah M.D. [id number]
--- NOTE | 2023-07-03 17:46 | XRR_ITS ---
PROCEDURE INFORMATION: Exam: XR Chest Exam date and time: 07/03/2023 5:52 PM Age: 68 years old Clinical indication: Other: N/v; Prior surgery; Surgery date: 6+ months; Surgery type: Lt shoulder loop recorder; Additional info: N/v, SOB with ambulation TECHNIQUE: Imaging protocol: Radiologic exam of the chest. Views: 1 view. COMPARISON: CT angio chest PE protcl [id number] 12/22/2021 3:26 AM FINDINGS: Lungs: No focal consolidation. Pleural spaces: No evidence of pneumothorax. No evidence of pleural effusion. Heart/Mediastinum: Cardiomediastinal silhouette is within normal limits. Bones/joints: No evidence of acute osseous abnormality. Stimulator type leads project over the midthoracic spine. Proximal left humeral prosthesis. XR/XR chest 1V portable 18000 IMPRESSION: 1. No acute cardiopulmonary abnormality.
--- NOTE | 2023-07-03 17:47 | ED_ITS ---
Documented by User: JOELLEN Jackson 07/03/23 21:40 HPI - Weakness 2 General: Chief complaint: Weakness Stated complaint: weakness, fever, n/v Time Seen by Provider: 07/03/23 17:39 Source: patient Mode of arrival: ambulatory Limitations: no limitations History of Present Illness: Patient is a 68-year-old male who presents to the emergency department complaining of nausea and vomiting for the past week. He is also reporting subjective fevers at home associated with some chills and myalgias. He notes that the last time he had symptoms like this was a year ago, which ended up being a prostatitis that required a 1 week stay in the hospital for IV antibiotics. He is a diabetic and states that his sugars are normally in the 250s. He currently only takes 1 diabetic medication and does not require insulin or other diabetic medications. He is also on lisinopril for blood pressure control. He states that yesterday he had a procedure done in which she was given a steroid shot for her neuropathy, and this is why his blood sugars have been high today. He notes that for the past week he has not been able to keep down food or drink. He denies any chest pain, but notes he feels short of breath with ambulation that is new. Onset (ago): week(s) Duration: constant Location: generalized Relieving factors: none Associated symptoms: Reports chills, fever(s), nausea and vomiting; Denies chest pain, diaphoresis, dysuria or headache(s) Review of Systems 2 General: Reports: 10 or more systems reviewed and unremarkable except in HPI and below Const: Reports: fever(s), chills, body aches and change in appetite; Denies: change in weight or diaphoresis ENMT: Denies: throat pain or hoarseness Card: Denies: chest pain, palpitations or lightheadedness Resp: Reports: dyspnea; Denies: productive cough or wheezing GI: Reports: nausea and vomiting; Denies: abdominal pain, diarrhea, constipation, bloating, change in stool character or hematochezia : Denies: flank pain, difficulty urinating, dysuria, urinary frequency or urinary urgency Musc: Denies: neck pain or back pain Skin/Breast: Denies: rash or new lesions Neuro: Reports: weakness in extremities; Denies: headache(s) or dizziness PFSH ED 2 PFSH: Medical History Diabetes Hypertension Surgical History Knee joint replacement status Social History Smoking and tobacco/nicotine status: current every day tobacco/nicotine user smokeless tobacco Smokeless tobacco user: chewing tobacco Alcohol intake: never Substance/Drug Use: never Physical Exam 2 Const: COMMON NORMALS: no acute distress, patient oriented x3 and no limitations GENERAL APPEARANCE: cooperative, comfortable and well developed NUTRITIONAL APPEARANCE: obese ORIENTATION/CONSCIOUSNESS: Yes awake, Yes oriented to person, Yes oriented to place and Yes oriented to time HENMT: COMMON NORMALS: normocephalic, atraumatic and hearing grossly normal bilaterally HEAD & SCALP: normocephalic and atraumatic Eye: COMMON NORMALS: Equal, round and reactive pupils present, EOMs intact bilaterally, conjunctivae normal and no scleral icterus CONJUNCTIVA: Yes conjunctivae normal PUPIL: Yes Equal, round and reactive pupils present Neck/C-Spine: COMMON NORMALS: full ROM, supple, no meningeal signs and no JVD Chest: COMMONS NORMALS: normal inspection of the chest Resp: COMMON NORMALS: normal respiratory effort, No retractions, No use of accessory muscles and clear to auscultation bilaterally EFFORT & INSPECTION: Yes able to speak in complete sentences, Yes symmetric chest movement and Yes Actively coughing AUSCULTATION: clear to auscultation bilaterally Cardio: COMMON NORMALS: no JVD, regular rate, regular rhythm, No clicks present (Cardio), No murmurs present (Cardio) and No rub (Cardio) RATE: r egular rate RHYTHM: regular rhythm GI: COMMON NORMALS: Normal to inspection, nondistended, normoactive bowel sounds present, Soft to palpation and non-tender INSPECTION: Yes central obesity AUSCULTATION: Yes normoactive bowel sounds PALPATION: Yes Soft to palpation RECTAL EXAM: Yes deferred : COMMON NORMALS: Yes no CVA tenderness BLADDER/KIDNEY EXAM: Yes no CVA tenderness Back/Pelvis: COMMON NORMALS: no CVA tenderness, thoracic and lumbar spine normal to inspection, no thoracic nor lumbar tenderness and thoraco-lumbar ROM normal Extremity: COMMON NORMALS: normal to inspection, full ROM and capillary refill normal Neuro: COMMON NORMALS: patient oriented x3, moves all extremities, no focal motor deficits and no sensory deficits noted SENSORIUM/ORIENTATION: Yes oriented to person, Yes oriented to place and Yes oriented to time MENINGEAL SIGNS: Yes no meningeal signs Psych: COMMON NORMALS: mental status grossly normal and Normal thought process present THOUGHT PROCESS: Normal thought process present Skin: COMMON NORMALS: no rashes or lesions noted GENERAL SKIN EXAM: no rashes or lesions noted Course 2 Vital Signs: Vital signs: Vital Signs Temperature 100.6 F H 07/03/23 19:09 Pulse Rate 74 07/03/23 19:30 Respiratory Rate 18 07/03/23 18:37 Blood Pressure 108/54 07/03/23 21:30 Pulse Oximetry 95 07/03/23 19:30 Oxygen Delivery Me thod Room Air 07/03/23 18:37 MDM - Weakness Medical Decision Making This patient was seen for 1 week of nausea and vomiting associated with some weakness. He notes that he had this in the past, and it turned out to be prostatitis and sepsis that required hospitalization. He states he is here to make sure that this is not the case. Per patient he has a history of early onset Parkinson's. He is not treated at this time. Also has a history of diabetes and sugars have been running higher. Initially on arrival he was afebrile with normal vitals, and examination was essentially unremarkable. Negative serum ketones. Unremarkable urinalysis. No elevation in white count, and other infectious parameters unremarkable. His CMP did show some signs of chronic kidney disease, however these were stable compared to recent. His EKG also unremarkable. Chest x-ray unremarkable. After 2 infusions of fluids, 2 doses of Zofran IV, and a dose of Reglan, he notes he does feel little better. His temp increased to 100.6, he was given Tylenol for this. I did get an abdomen pelvis CT that showed some possible esophagitis, however no acute abnormality. Noncontrast was ordered due to patient's kidney disease. His respiratory panel also resulted negative, normal cardiac enzymes. Patient's nausea and vomiting likely the result of his dehydration, however I gave him strict return precautions to come back for further evaluation, and informed him to follow-up with his primary care provider in the next few days. I will send him home with [employer] and Zofran, patient is able to keep down food and liquids here in the emergency department prior to discharge. He does state he feels better, and notes that he will return if anything changes. All other questions and concerns addressed at this time, patient agrees with discharge home. Lab Data I reviewed the patient's lab results. 07/03/23 17:47 07/03/23 17:47 Radiology Impressions Chest X-Ray 07/03/23 17:46 IMPRESSION: 1. No acute cardiopulmonary abnormality. Abdomen/Pelvis CT 07/03/23 20:54 IMPRESSION: 1. Possible esophagitis. Otherwise no evidence of acute abnormality in the abdomen or pelvis within limitations of a noncontrast exam. Consider follow-up nonemergent GI evaluation and endoscopy to exclude Mace's esophagus. 2. Renal parenchymal atrophy. Correlation with renal function tests is recommended. Laboratory Results WBC 7.51 10^3/uL (3.29-11.43) 07/03/23 17:47 RBC 4.74 10^6/uL (3.85-5.65) 07/03/23 17:47 Hgb 15.40 g/dL (11.27-16.99) 07/03/23 17:47 Hct 43.9 % (37-53) 07/03/23 17:47 MCV 92.6 fl (82-101) 07/03/23 17:47 MCH 32.5 pg (27-33) 07/03/23 17:47 MCHC 35.1 g/dL (30-55) 07/03/23 17:47 RDW 12.1 % (12.1-15.1) 07/03/23 17:47 Plt Count 143 10^3/cmm (157-399) L 07/03/23 17:47 MPV 9.4 fL (7.4-10.4) 07/03/23 17:47 Neut % (Auto) 83.0 % 07/03/23 17:47 Lymph % (Auto) 6.4 % 07/03/23 17:47 [place] % (Auto) 9.7 % 07/03/23 17:47 Eos % (Auto) 0.1 % 07/03/23 17:47 Baso % (Auto) 0.3 % 07/03/23 17:47 Neut # (Auto) 6.23 10^3/uL (1.8-7.7) 07/03/23 17:47 Lymph # (Auto) 0.5 10^3/uL (0.8-4.8) L 07/03/23 17:47 [place] # (Auto) 0.7 10^3/uL (0.2-0.9) 07/03/23 17:47 Eos # (Auto) 0.0 10^3/uL (0.0-0.8) 07/03/23 17:47 Baso # (Auto) 0.0 10^3/uL (0.0-0.1) 07/03/23 17:47 Nucleated RBC % (auto) 0 % 07/03/23 17:47 Nucleated RBCs # 0.0 /100WBC 07/03/23 17:47 Sodium 134 mmol/L (136-145) L 07/03/23 17:47 Potassium 4.5 mmol/L (3.5-5.1) 07/03/23 17:47 Chloride 96 mmol/L (98-107) L 07/03/23 17:47 Carbon Dioxide 26 mmol/L (22-29) 07/03/23 17:47 Anion Gap 16.5 (5-19) 07/03/23 17:47 BUN 18 mg/dL (8-23) 07/03/23 17:47 Creatinine 1.4 mg/dL (0.7-1.2) H 07/03/23 17:47 GFR Calculation 50.4 mL/min (90-130) L 07/03/23 17:47 Glucose 346 mg/dL (65-115) H 07/03/23 17:47 POC Glucose 321 mg/dL (70-110) H 07/03/23 17:32 Calculated Osmolality 294 mOsm/kg (285-295) 07/03/23 17:47 Lactic Acid 2.0 mmol/L (0.5-2.2) 07/03/23 17:47 Calcium 8.7 mg/dL (8.5-10.5) 07/03/23 17:47 Total Bilirubin 1.3 mg/dL (0.15-1.2) H 07/03/23 17:47 AST 30 U/L (0-40) 07/03/23 17:47 ALT 35 U/L (0-41) 07/03/23 17:47 Alkaline Phosphatase 82 U/L (40-130) 07/03/23 17:47 Troponin T Baseline 11 ng/L (0-15) 07/03/23 17:47 Troponin T 120 Minute 12.34 ng/L (0-15) 07/03/23 20:18 Delta Troponin T 1.34 ABS# (0-10) 07/03/23 20:18 C-Reactive Protein 7.9 mg/L (0.0-4.9) H 07/03/23 17:47 Total Protein 6.9 g/dL (6.6-8.7) 07/03/23 17:47 Albumin 4.2 g/dL (3.5-5.2) 07/03/23 17:47 Globulin 2.7 g/dL (1.3-4.6) 07/03/23 17:47 Procalcitonin 0.25 ng/mL (0-0.5) 07/03/23 17:47 Urine Color Yellow (Yellow) 07/03/23 18:08 Urine Appearance Clear (CLEAR) 07/03/23 18:08 Urine pH 7 (5-7) 07/03/23 18:08 Ur Specific [place] 1.010 (1.005-1.030) 07/03/23 18:08 Urine Protein 1+ (Negative) H 07/03/23 18:08 Urine Glucose (UA) 4+ (Normal) H 07/03/23 18:08 Urine Ketones Negative (Negative) 07/03/23 18:08 Urine Blood 2+ (Negative) H 07/03/23 18:08 Urine Nitrate Negative (Negative) 07/03/23 18:08 Urine Bilirubin Neg (Negative) 07/03/23 18:08 Urine Urobilinogen Norm mg/dL (Negative) 07/03/23 18:08 Ur Leukocyte Esterase Negative (Negative) 07/03/23 18:08 Urine RBC 0-4 /hpf (0-2) H 07/03/23 18:08 Urine WBC 0-4 /hpf (0-5) H 07/03/23 18:08 Ur Squamous Epith Cells 0-4 /hpf (0-5) H 07/03/23 18:08 Amorphous Sediment Not Reportable 07/03/23 18:08 Urine Bacteria Trace /hpf (NONE) 07/03/23 18:08 Urine Mucus None /hpf 07/03/23 18:08 Serum Ketones Negative (Negative) 07/03/23 19:06 Adenovirus (PCR) Not detected (NOT DETECT) 07/03/23 18:01 C. pneumoniae DNA (PCR) Not detected (NOT DETECT) 07/03/23 18:01 Coronavirus 229E (PCR) Not detected (NOT DETECT) 07/03/23 18:01 Human Metapneumovir PCR Not detected (NOT DETECT) 07/03/23 18:01 Influenza A (H1) PCR Not detected (NOT DETECT) 07/03/23 18:01 Influ A (H1/09) PCR Not detected (NOT DETECT) 07/03/23 18:01 Influenza A (H3) PCR Not detected (NOT DETECT) 07/03/23 18:01 Influenza Type A (PCR) Not detected (NOT DETECT) 07/03/23 18:01 Influenza Type B (PCR) Not detected (NOT DETECT) 07/03/23 18:01 M. pneumoniae (PCR) Not detected (NOT DETECT) 07/03/23 18:01 Parainfluenza 1 (PCR) Not detected (NOT DETECT) 07/03/23 18:01 Parainfluenza 2 (PCR) Not detected (NOT DETECT) 07/03/23 18:01 Parainfluenza 3 (PCR) Not detected (NOT DETECT) 07/03/23 18:01 Parainfluenza 4 (PCR) Not detected (NOT DETECT) 07/03/23 18:01 RSV Type A (PCR) Not detected (NOT DETECT) 07/03/23 18:01 RSV Type B (PCR) Not detected (NOT DETECT) 07/03/23 18:01 Entero/Rhino (PCR) Not detected (NOT DETECT) 07/03/23 18:01 SARS-CoV-2 (PCR) Not detected (NOT DETECT) 07/03/23 18:01 All radiology interpretation(s) finalized by discharge Discharge Plan Discharge Patient Disposition: Home Clinical Impression: Dehydration, Esophagitis CKD (chronic kidney disease) Qualifiers: Chronic kidney disease stage: unspecified stage Qualified Code(s): N18.9 - Chronic kidney disease, unspecified Condition: Stable Prescriptions: New Protonix 40 mg tablet,delayed release (DR/EC) 40 mg PO DAILY Qty: 30 0RF ondansetron HCl 4 mg tablet 4 mg PO Q8H Qty: 60 0RF No Action psyllium husk [Fiber (psyllium husk)] 0.4 gram capsule 0.4 g PO DAILY Qty: 30 0RF lisinopril 20 mg tablet 20 mg PO DAILY hydromorphone 4 mg tablet 4 mg PO Q6H PRN (Reason: Pain) Trulicity 0.75 mg/0.5 mL pen injector 0.75 mg SUBCUT DIRECTED Rx Instructions: (ON TUESDAYS) omeprazole 40 mg capsule,delayed release(DR/EC) 40 mg PO DAILY sertraline 50 mg Tablet 50 mg PO DAILY rosuvastatin 10 mg tablet 10 mg PO DAILY Discharge Orders: Discharge ED (Routine); Ordered 07/03/23 Ordered By: Toni Flynn Referrals: May York FNP [Primary Care Provider] - Discharge Diet: Diabetic Discharge Activity: Increase activity as tolerated Patient Instructions: Chronic Kidney Disease (ED), Acute Nausea and Vomiting (ED), Diabetes and Nutrition (ED) Activity Restrictions/Additional Instructions: Monitor blood sugars closely. Take Protonix and Zofran as directed. Plenty of fluids. Diabetic diet. Continue taking medications as prescribed. Please follow-up with primary care as discussed. Also as discussed, return if your condition does not improve or worsens, or you have any new or concerning symptoms. Coding Level of Care Code ED Correctional Officer Chief for Chg Fwd Documented by User: Roderick Martinez DO 07/05/23 06:15 HPI - Weakness 2 General: Chief complaint: Weakness Stated complaint: weakness, fever, n/v Time Seen by Provider: 07/03/23 17:39 PFSH ED 2 PFSH: Medical History Diabetes Hypertension Surgical History Knee joint replacement status Social History Smoking and tobacco/nicotine status: current every day tobacco/nicotine user smokeless tobacco Smokeless tobacco user: chewing tobacco Alcohol intake: never Substance/Drug Use: never Course 2 Vital Signs: Vital signs: Vital Signs Temperature 100.6 F H 07/03/23 19:09 Pulse Rate 74 07/03/23 19:30 Respiratory Rate 18 07/03/23 18:37 Blood Pressure 108/54 07/03/23 21:30 Pulse Oximetry 95 07/03/23 19:30 Oxygen Delivery Me thod Room Air 07/03/23 18:37 MDM - Weakness Medical Decision Making This patient was seen for 1 week of nausea and vomiting associated with some weakness. He notes that he had this in the past, and it turned out to be prostatitis and sepsis that required hospitalization. He states he is here to make sure that this is not the case. Per patient he has a history of early onset Parkinson's. He is not treated at this time. Also has a history of diabetes and sugars have been running higher. Initially on arrival he was afebrile with normal vitals, and examination was essentially unremarkable. Negative serum ketones. Unremarkable urinalysis. No elevation in white count, and other infectious parameters unremarkable. His CMP did show some signs of chronic kidney disease, however these were stable compared to recent. His EKG also unremarkable. Chest x-ray unremarkable. After 2 infusions of fluids, 2 doses of Zofran IV, and a dose of Reglan, he notes he does feel little better. His temp increased to 100.6, he was given Tylenol for this. I did get an abdomen pelvis CT that showed some possible esophagitis, however no acute abnormality. Noncontrast was ordered due to patient's kidney disease. His respiratory panel also resulted negative, normal cardiac enzymes. Patient's nausea and vomiting likely the result of his dehydration, however I gave him strict return precautions to come back for further evaluation, and informed him to follow-up with his primary care provider in the next few days. I will send him home with Protonix and Zofran, patient is able to keep down food and liquids here in the emergency department prior to discharge. He does state he feels better, and notes that he will return if anything changes. All other questions and concerns addressed at this time, patient agrees with discharge home. Chart reviewed Lab Data 07/03/23 17:47 07/03/23 17:47 Radiology Impressions Chest X-Ray 07/03/23 17:46 IMPRESSION: 1. No acute cardiopulmonary abnormality. Abdomen/Pelvis CT 07/03/23 20:54 IMPRESSION: 1. Possible esophagitis. Otherwise no evidence of acute abnormality in the abdomen or pelvis within limitations of a noncontrast exam. Consider follow-up nonemergent GI evaluation and endoscopy to exclude Mace's esophagus. 2. Renal parenchymal atrophy. Correlation with renal function tests is recommended. Laboratory Results WBC 7.51 10^3/uL (3.29-11.43) 07/03/23 17:47 RBC 4.74 10^6/uL (3.85-5.65) 07/03/23 17:47 Hgb 15.40 g/dL (11.27-16.99) 07/03/23 17:47 Hct 43.9 % (37-53) 07/03/23 17:47 MCV 92.6 fl (82-101) 07/03/23 17:47 MCH 32.5 pg (27-33) 07/03/23 17:47 MCHC 35.1 g/dL (30-55) 07/03/23 17:47 RDW 12.1 % (12.1-15.1) 07/03/23 17:47 Plt Count 143 10^3/cmm (157-399) L 07/03/23 17:47 MPV 9.4 fL (7.4-10.4) 07/03/23 17:47 Neut % (Auto) 83.0 % 07/03/23 17:47 Lymph % (Auto) 6.4 % 07/03/23 17:47 [place] % (Auto) 9.7 % 07/03/23 17:47 Eos % (Auto) 0.1 % 07/03/23 17:47 Baso % (Auto) 0.3 % 07/03/23 17:47 Neut # (Auto) 6.23 10^3/uL (1.8-7.7) 07/03/23 17:47 Lymph # (Auto) 0.5 10^3/uL (0.8-4.8) L 07/03/23 17:47 [place] # (Auto) 0.7 10^3/uL (0.2-0.9) 07/03/23 17:47 Eos # (Auto) 0.0 10^3/uL (0.0-0.8) 07/03/23 17:47 Baso # (Auto) 0.0 10^3/uL (0.0-0.1) 07/03/23 17:47 Nucleated RBC % (auto) 0 % 07/03/23 17:47 Nucleated RBCs # 0.0 /100WBC 07/03/23 17:47 Sodium 134 mmol/L (136-145) L 07/03/23 17:47 Potassium 4.5 mmol/L (3.5-5.1) 07/03/23 17:47 Chloride 96 mmol/L (98-107) L 07/03/23 17:47 Carbon Dioxide 26 mmol/L (22-29) 07/03/23 17:47 Anion Gap 16.5 (5-19) 07/03/23 17:47 BUN 18 mg/dL (8-23) 07/03/23 17:47 Creatinine 1.4 mg/dL (0.7-1.2) H 07/03/23 17:47 GFR Calculation 50.4 mL/min (90-130) L 07/03/23 17:47 Glucose 346 mg/dL (65-115) H 07/03/23 17:47 POC Glucose 321 mg/dL (70-110) H 07/03/23 17:32 Calculated Osmolality 294 mOsm/kg (285-295) 07/03/23 17:47 Lactic Acid 2.0 mmol/L (0.5-2.2) 07/03/23 17:47 Calcium 8.7 mg/dL (8.5-10.5) 07/03/23 17:47 Total Bilirubin 1.3 mg/dL (0.15-1.2) H 07/03/23 17:47 AST 30 U/L (0-40) 07/03/23 17:47 ALT 35 U/L (0-41) 07/03/23 17:47 Alkaline Phosphatase 82 U/L (40-130) 07/03/23 17:47 Troponin T Baseline 11 ng/L (0-15) 07/03/23 17:47 Troponin T 120 Minute 12.34 ng/L (0-15) 07/03/23 20:18 Delta Troponin T 1.34 ABS# (0-10) 07/03/23 20:18 C-Reactive Protein 7.9 mg/L (0.0-4.9) H 07/03/23 17:47 Total Protein 6.9 g/dL (6.6-8.7) 07/03/23 17:47 Albumin 4.2 g/dL (3.5-5.2) 07/03/23 17:47 Globulin 2.7 g/dL (1.3-4.6) 07/03/23 17:47 Procalcitonin 0.25 ng/mL (0-0.5) 07/03/23 17:47 Urine Color Yellow (Yellow) 07/03/23 18:08 Urine Appearance Clear (CLEAR) 07/03/23 18:08 Urine pH 7 (5-7) 07/03/23 18:08 Ur Specific [place] 1.010 (1.005-1.030) 07/03/23 18:08 Urine Protein 1+ (Negative) H 07/03/23 18:08 Urine Glucose (UA) 4+ (Normal) H 07/03/23 18:08 Urine Ketones Negative (Negative) 07/03/23 18:08 Urine Blood 2+ (Negative) H 07/03/23 18:08 Urine Nitrate Negative (Negative) 07/03/23 18:08 Urine Bilirubin Neg (Negative) 07/03/23 18:08 Urine Urobilinogen Norm mg/dL (Negative) 07/03/23 18:08 Ur Leukocyte Esterase Negative (Negative) 07/03/23 18:08 Urine RBC 0-4 /hpf (0-2) H 07/03/23 18:08 Urine WBC 0-4 /hpf (0-5) H 07/03/23 18:08 Ur Squamous Epith Cells 0-4 /hpf (0-5) H 07/03/23 18:08 Amorphous Sediment Not Reportable 07/03/23 18:08 Urine Bacteria Trace /hpf (NONE) 07/03/23 18:08 Urine Mucus None /hpf 07/03/23 18:08 Serum Ketones Negative (Negative) 07/03/23 19:06 Adenovirus (PCR) Not detected (NOT DETECT) 07/03/23 18:01 C. pneumoniae DNA (PCR) Not detected (NOT DETECT) 07/03/23 18:01 Coronavirus 229E (PCR) Not detected (NOT DETECT) 07/03/23 18:01 Human Metapneumovir PCR Not detected (NOT DETECT) 07/03/23 18:01 Influenza A (H1) PCR Not detected (NOT DETECT) 07/03/23 18:01 Influ A (H1/09) PCR Not detected (NOT DETECT) 07/03/23 18:01 Influenza A (H3) PCR Not detected (NOT DETECT) 07/03/23 18:01 Influenza Type A (PCR) Not detected (NOT DETECT) 07/03/23 18:01 Influenza Type B (PCR) Not detected (NOT DETECT) 07/03/23 18:01 M. pneumoniae (PCR) Not detected (NOT DETECT) 07/03/23 18:01 Parainfluenza 1 (PCR) Not detected (NOT DETECT) 07/03/23 18:01 Parainfluenza 2 (PCR) Not detected (NOT DETECT) 07/03/23 18:01 Parainfluenza 3 (PCR) Not detected (NOT DETECT) 07/03/23 18:01 Parainfluenza 4 (PCR) Not detected (NOT DETECT) 07/03/23 18:01 RSV Type A (PCR) Not detected (NOT DETECT) 07/03/23 18:01 RSV Type B (PCR) Not detected (NOT DETECT) 07/03/23 18:01 Entero/Rhino (PCR) Not detected (NOT DETECT) 07/03/23 18:01 SARS-CoV-2 (PCR) Not detected (NOT DETECT) 07/03/23 18:01 Discharge Plan Discharge Patient Disposition: Home Clinical Impression: Dehydration, Esophagitis CKD (chronic kidney disease) Qualifiers: Chronic kidney disease stage: unspecified stage Qualified Code(s): N18.9 - Chronic kidney disease, unspecified Condition: Stable Prescriptions: New Protonix 40 mg tablet,delayed release (DR/EC) 40 mg PO DAILY Qty: 30 0RF ondansetron HCl 4 mg tablet 4 mg PO Q8H Qty: 60 0RF No Action psyllium husk [Fiber (psyllium husk)] 0.4 gram capsule 0.4 g PO DAILY Qty: 30 0RF lisinopril 20 mg tablet 20 mg PO DAILY hydromorphone 4 mg tablet 4 mg PO Q6H PRN (Reason: Pain) Trulicity 0.75 mg/0.5 mL pen injector 0.75 mg SUBCUT DIRECTED Rx Instructions: (ON TUESDAYS) omeprazole 40 mg capsule,delayed release(DR/EC) 40 mg PO DAILY sertraline 50 mg Tablet 50 mg PO DAILY rosuvastatin 10 mg tablet 10 mg PO DAILY Discharge Orders: Discharge ED (Routine); Ordered 07/03/23 Ordered By: Toni Flynn Referrals: May York FNP [Primary Care Provider] - Discharge Diet: Diabetic Discharge Activity: Increase activity as tolerated Patient Instructions: Chronic Kidney Disease (ED), Acute Nausea and Vomiting (ED), Diabetes and Nutrition (ED) Activity Restrictions/Additional Instructions: Monitor blood sugars closely. Take Protonix and Zofran as directed. Plenty of fluids. Diabetic diet. Continue taking medications as prescribed. Please follow-up with primary care as discussed. Also as discussed, return if your condition does not improve or worsens, or you have any new or concerning symptoms. Coding Level of Care Code ED Correctional Officer Chief for Liane Xavier
[2023-07-03] MEDS: ondansetron 2 mg/ML SDV 2 mL 4 MG IVP ×2 (17:56→19:06)
[2023-07-03] MEDS: sodium chloride 0.9% 1,000 ML 999 ML IV ×2 (17:57→19:51)
[2023-07-03 18:05] LABS: Basophils % 0.3 %; Eosinophils % 0.1 %; Hematocrit 43.9 % (37-53); Lymphocytes # 0.5 10^3/uL (0.8-4.8); Lymphocytes % 6.4 %; Mean Corpuscular HGB Conc 35.1 g/dL (30-55); Mean Corpuscular Hemoglobin 32.5 pg (27-33); Mean Corpuscular Volume 92.6 fl (82-101); Mean Platelet Volume 9.4 fL (7.4-10.4); Monocytes # 0.7 10^3/uL (0.2-0.9); Monocytes % 9.7 %; Neutrophils # 6.23 10^3/uL (1.8-7.7); Nucleated Red Blood Cells % 0 %; Platelet Count 143 10^3/cmm (157-399); Red Blood Count 4.74 10^6/uL (3.85-5.65); Red Cell Distribution Width 12.1 % (12.1-15.1); White Blood Count 7.51 10^3/uL (3.29-11.43)
[2023-07-03 18:25] LABS: Glucose Urine UA 4+ (Normal); Ketones Urine Negative (Negative); Protein Urine 1+ (Negative); Urine Appearance Clear (CLEAR); Urine Color Yellow (Yellow); pH Urine 7 (5-7)
[2023-07-03 18:26] LABS: Add Urine Microscopic? YES; Bilirubin Urine Neg (Negative); Blood Urine 2+ (Negative); Leukocyte Esterase Urine Negative (Negative); Nitrate Urine Negative (Negative); Urobilinogen Urine Norm (Negative)
[2023-07-03 18:35] LABS: Add Urine Culture? No; Bacteria Urine TRACE /hpf; RBC Urine 0-4 /hpf (0-2); Squamous Epithelial Cell Urine 0-4 /hpf (0-5); WBC Urine 0-4 /hpf (0-5)
[2023-07-03 18:37] VITALS: BP 140/80; PULSE 76; RESP 18; O2SAT 96
[2023-07-03 18:38] LABS: Glucose Point of Care 321 mg/dL (70-110)
[2023-07-03 18:42] LABS: Alanine Aminotransferase 35 U/L (0-41); Albumin Level 4.2 g/dL (3.5-5.2); Alkaline Phosphatase 82 U/L (40-130); Blood Urea Nitrogen 18 mg/dL (8-23); C Reactive Protein 7.9 mg/L (0.0-4.9); Calcium 8.7 mg/dL (8.5-10.5); Carbon Dioxide 26 mmol/L (22-29); Chloride 96 mmol/L (98-107); Globulin 2.7 g/dL (1.3-4.6); Glomerular Filtration Rate 50.4 mL/min (90-130); Glucose 346 mg/dL (65-115); Osmolality Calculated 294 mOsm/kg (285-295); Sodium 134 mmol/L (136-145); Total Bilirubin 1.3 mg/dL (0.15-1.2); Total Protein 6.9 g/dL (6.6-8.7)
[2023-07-03 18:47] LABS: Procalcitonin 0.25 ng/mL (0-0.5)
[2023-07-03 18:48] LABS: Anion Gap 16.5 (5-19); Aspartate Amino Transferase 30 U/L (0-40); Potassium 4.5 mmol/L (3.5-5.1)
[2023-07-03 19:09] VITALS: TEMP 38.1
[2023-07-03 19:30] VITALS: BP 136/66; PULSE 74; O2SAT 95
[2023-07-03] MEDS: acetaminophen 500 mg Tablet 1000 MG PO (19:35)
--- NOTE | 2023-07-03 19:40 | ECG_ITS ---
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 Measurements Intervals [place] Rate: 75 P: -81 ID: [id number] QRS: -48 QRSD: 97 T: 64 QT: 363 QTc: 406 Interpretive Statements SUPRAVENTRICULAR RHYTHM Compared to ECG 07/03/2023 17:35:58 No significant changes Electronically Signed On 07-04-2023 16:59:46 CDT by Hood Appiah M.D. [id number] f
[2023-07-03 19:55] LABS: Ketone (Acetest) Serum Negative (Negative)
[2023-07-03] MEDS: metoclopramide 5 mg/mL SDV 2 mL 10 MG IVP (20:00)
[2023-07-03 20:09] LABS: Adenovirus Not Detected (NOT DETECT); Chlamydia Pneumoniae Not Detected (NOT DETECT); Coronavirus 229E,HKU1,NL63,OC4 Not Detected (NOT DETECT); Human Metapneumovirus Not Detected (NOT DETECT); Human Rhinovirus/Enterovirus Not Detected (NOT DETECT); Influenza A Not Detected (NOT DETECT); Influenza A H1 Not Detected (NOT DETECT); Influenza A H1-2009 Not Detected (NOT DETECT); Influenza A H3 Not Detected (NOT DETECT); Influenza B Not Detected (NOT DETECT); Mycoplasma Pneumoniae Not Detected (NOT DETECT); Parainfluenza Virus Type 1 Not Detected (NOT DETECT); Parainfluenza Virus Type 2 Not Detected (NOT DETECT); Parainfluenza Virus Type 3 Not Detected (NOT DETECT); Parainfluenza Virus Type 4 Not Detected (NOT DETECT); Respiratory Syncytial Virus A Not Detected (NOT DETECT); Respiratory Syncytial Virus B Not Detected (NOT DETECT); SARS-COV-2 Not Detected (NOT DETECT)
[2023-07-03 20:41] LABS: Troponin(5th) Baseline 11 ng/L (0-15)
--- NOTE | 2023-07-03 20:47 | ECG_ITS ---
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 Measurements Intervals [place] Rate: 75 P: 134 OR: 366 QRS: -30 QRSD: 97 T: 66 QT: 388 QTc: 436 Interpretive Statements SUPRAVENTRICULAR RHYTHM Electronically Signed On 07-04-2023 16:51:34 CDT by Hood Appiah M.D. [id number]
--- NOTE | 2023-07-03 20:54 | CTR_ITS ---
PROCEDURE INFORMATION: Exam: CT Abdomen And Pelvis Without Contrast Exam date and time: 07/03/2023 9:00 PM Age: 68 years old Clinical indication: Nausea and vomiting; Additional info: N/v TECHNIQUE: Imaging protocol: Computed tomography of the abdomen and pelvis without contrast. Radiation optimization: All CT scans at this facility use at least one of these dose optimization techniques: automated exposure control; mA and/or kV adjustment per patient size (includes targeted exams where dose is matched to clinical indication); or iterative reconstruction. COMPARISON: CT kidney stone [id number] 12/22/2021 10:41 AM RADIATION DOSE METRICS: Total DLP (mGy-cm): 1090 FINDINGS: Lungs: Subsegmental bibasilar atelectasis. The visualized lung bases are otherwise clear. Diaphragm: No evidence of diaphragmatic defect. Liver: Hepatic steatosis. No focal hepatic lesion within limitations of a noncontrast exam. Gallbladder and bile ducts: Gallbladder is unremarkable. No evidence of intra-hepatic or extra-hepatic biliary dilatation. Pancreas: Grossly unremarkable. Spleen: Grossly unremarkable. Adrenal glands: Grossly unremarkable. Kidneys and ureters: Moderate bilateral renal parenchymal atrophy.There are simple appearing renal cysts for which dedicated imaging follow-up is not required. Nonobstructive right-sided renal stone measuring 2 mm. No hydronephrosis or ureteral stone. Stomach and bowel: Mild wall thickening of the distal esophagus, possibly reflecting esophagitis. Colonic diverticulosis without evidence of acute diverticulitis. No bowel obstruction or perienteric inflammatory changes. Appendix: The appendix is not visualized, however there are no findings to suggest appendicitis. Intraperitoneal space: No evidence of free air or fluid collection. Vasculature: No evidence of aneurysmal dilitation of abdominal aorta. Lymph nodes: No evidence of adenopathy. Urinary bladder: Grossly unremarkable. Reproductive: Grossly unremarkable. Bones/joints: No evidence of acute fracture or aggresive osseous lesion. L4-L5 posterior instrumented fusion with transpedicular screws and interlocking rods. 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 There is a stimulator type device in place with leads coursing cephalad in the thoracic spinal canal. Soft tissues: No evidence of fluid collection or hematoma in the superficial soft tissues. CT/CT abdomen pelvis wo con [id number] IMPRESSION: 1. Possible esophagitis. Otherwise no evidence of acute abnormality in the abdomen or pelvis within limitations of a noncontrast exam. Consider follow-up nonemergent GI evaluation and endoscopy to exclude Mace's esophagus. 2. Renal parenchymal atrophy. Correlation with renal function tests is recommended.
[2023-07-03 20:58] LABS: Troponin 5 2HR 12.34 ng/L (0-15); Troponin 5 2HR Delta 1.34 ABS# (0-10)
[2023-07-03 21:30] VITALS: BP 108/54
== END 2023-07-03 21:51 | disposition home or self-care (01) ==
PROVIDERS: Emergency Provider Physician Assistant; PCP Nurse Practitioner Family
DX: E86.0 Dehydration (principal); K20.90 Esophagitis, unspecified without bleeding; E11.22 Type 2 diabetes mellitus with diabetic chronic kidney disease; I12.9 Hypertensive chronic kidney disease with stage 1 through stage 4 chronic kidney disease, or unspecified chronic kidney disease; N18.9 Chronic kidney disease, unspecified; F17.220 Nicotine dependence, chewing tobacco, uncomplicated; Z79.85 Long-term (current) use of injectable non-insulin antidiabetic drugs; Z11.52 Encounter for screening for COVID-19
CPT/HCPCS: 36415; 36416; 71045; 74176; 80053; 81001; 82009; 82962; 83605; 84145; 84484; 85025; 86140; 87486; 87581; 87633; 93005; 96361; 96374; 96375; 96376; 99285; J2405; J2765; J7030

== ENCOUNTER 2023-11-19 15:36 | Emergency (ER) | payer MEDICARE, MEDICAID, SELFPAY ==
[2023-11-19 15:50] VITALS: BP 128/81; PULSE 86; TEMP 36.6; O2SAT 97; BMI 36.9
--- NOTE | 2023-11-19 15:50 | XRR_ITS ---
PROCEDURE INFORMATION: Exam: XR Chest Exam date and time: 11/19/2023 4:05 PM Age: 68 years old Clinical indication: Shortness of breath TECHNIQUE: Imaging protocol: Radiologic exam of the chest. Views: 1 view. COMPARISON: CR XR chest 1V portable [id number] 07/03/2023 5:52 PM FINDINGS: Tubes, catheters and devices: Neurostimulator device leads projecting over the midthoracic spine. Lungs: No focal consolidation. Pleural spaces: No sizable pleural effusion. No pneumothorax. Heart/Mediastinum: Unremarkable cardiomediastinal silhouette. Bones/joints: There is a left glenohumeral arthroplasty. XR/XR chest 1V portable [id number] IMPRESSION: No acute findings.
--- NOTE | 2023-11-19 15:51 | ECG_ITS ---
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 Measurements Intervals [place] Rate: 89 P: 65 [place]: 176 QRS: -35 QRSD: 98 T: 61 QT: 380 QTc: 464 Interpretive Statements SINUS RHYTHM LEFT AXIS DEVIATION [QRS AXIS < -30] PATTERN CONSISTENT WITH PULMONARY DISEASE Compared to ECG 07/03/2023 20:47:51 Left-axis deviation now present Supraventricular rhythm no longer present Electronically Signed On 11-19-2023 16:04:44 CDT by Hood Appiah M.D. [id number]
[2023-11-19 16:43] LABS: Basophils # 0.1 10^3/uL (0.0-0.1); Basophils % 0.5 %; Eosinophils # 0.4 10^3/uL (0.0-0.8); Eosinophils % 3.5 %; Hematocrit 42.3 % (37-53); Lymphocytes # 2.9 10^3/uL (0.8-4.8); Lymphocytes % 26.2 %; Mean Corpuscular HGB Conc 34.5 g/dL (30-55); Mean Corpuscular Hemoglobin 32.6 pg (27-33); Mean Corpuscular Volume 94.4 fl (82-101); Mean Platelet Volume 9.7 fL (7.4-10.4); Monocytes # 0.8 10^3/uL (0.2-0.9); Monocytes % 6.9 %; Neutrophils # 6.78 10^3/uL (1.8-7.7); Neutrophils % 62.4 %; Nucleated Red Blood Cells % 0 %; Platelet Count 167 10^3/cmm (157-399); Red Blood Count 4.48 10^6/uL (3.85-5.65); Red Cell Distribution Width 12.8 % (12.1-15.1); White Blood Count 10.86 10^3/uL (3.29-11.43)
[2023-11-19 16:58] LABS: Troponin(5th) Baseline 10 ng/L (0-15)
[2023-11-19 17:23] LABS: Alanine Aminotransferase 35 U/L (0-41); Albumin Level 4.3 g/dL (3.5-5.2); Alkaline Phosphatase 87 U/L (40-130); Anion Gap 18.1 (5-19); Aspartate Amino Transferase 28 U/L (0-40); Blood Urea Nitrogen 16 mg/dL (8-23); Carbon Dioxide 22 mmol/L (22-29); Chloride 100 mmol/L (98-107); Creatinine Clr Calc Pharmacy 58.9137; Globulin 2.5 g/dL (1.3-4.6); Glomerular Filtration Rate 50.4 mL/min (90-130); Glucose 323 mg/dL (65-115); NT Pro B Type Natriuretic Pept 109 pg/mL (0-125); Osmolality Calculated 296 mOsm/kg (285-295); Potassium 4.1 mmol/L (3.5-5.1); Sodium 136 mmol/L (136-145); Total Bilirubin 0.9 mg/dL (0.15-1.2); Total Protein 6.8 g/dL (6.6-8.7)
--- NOTE | 2023-11-19 18:21 | ECG_ITS ---
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 Measurements Intervals [place] Rate: 64 P: 63 RI: 193 QRS: -28 QRSD: 86 T: 29 QT: 404 QTc: 420 Interpretive Statements SINUS RHYTHM BORDERLINE LEFT AXIS DEVIATION [QRS AXIS < -20] Compared to ECG 11/19/2023 15:53:06 No significant changes Electronically Signed On 11-20-2023 7:59:02 CDT by Hood Appiah M.D. [email or web address]
[2023-11-19 18:24] LABS: Reflex Lactate Order REFLEX LACTIC ORDERD
--- NOTE | 2023-11-19 18:27 | ED_ITS ---
HPI - Weakness 2 General: Chief complaint: Weakness Stated complaint: weak, dizzy, sob Time Seen by Provider: 11/19/23 18:22 History of Present Illness: 68-year-old male presents with cold swea ts has been going on since this morning. Patient reports he just does not feel well has been having some dysuria when he starts to pee and some difficulty urinating. Patient reports she has had this similarly in the past due to urinary tract infection due to enlarged prostate. Reports he does not feel chilled despite having a cold sweats. He also reports he feels little bit shaky. Associated symptoms: Reports chills; Denies chest pain, headache(s), nausea or vomiting Review of Systems 2 Const: Reports: chills and malaise Card: Denies: chest pain or palpitations Resp: Denies: dyspnea or productive cough GI: Denies: abdominal pain, nausea or vomiting : Reports: difficulty urinating Musc: Denies: back pain Skin/Breast: Denies: rash Neuro: Reports: dizziness; Denies: headache(s) PFSH ED 2 PFSH: Medical History Diabetes Hypertension Surgical History Knee joint replacement status Social History Smoking and tobacco/nicotine status: current every day tobacco/nicotine user smokeless tobacco Smokeless tobacco user: chewing tobacco Alcohol intake: never Substance/Drug Use: never Physical Exam 2 Const: COMMON NORMALS: no acute distress and patient oriented x3 Resp: COMMON NORMALS: normal respiratory effort, No use of accessory muscles and clear to auscultation bilaterally EFFORT & INSPECTION: Yes able to speak in complete sentences AUSCULTATION: clear to auscultation bilaterally Cardio: COMMON NORMALS: regular rate and regular rhythm RATE: regular rate RHYTHM: regular rhythm GI: COMMON NORMALS: Soft to palpation and non-tender PALPATION: Yes Soft to palpation : COMMON NORMALS: Yes no CVA tenderness BLADDER/KIDNEY EXAM: Yes no CVA tenderness Back/Pelvis: COMMON NORMALS: no CVA tenderness Extremity: COMMON NORMALS: normal to inspection, full ROM and capillary refill normal Neuro: COMMON NORMALS: patient oriented x3 Psych: COMMON NORMALS: mental status grossly normal, cooperative and normal affect Skin: COMMON NORMALS: no rashes or lesions noted and turgor normal GENERAL SKIN EXAM: no rashes or lesions noted and turgor normal Course 2 Vital Signs: Vital signs: Vital Signs Temperature 97.8 F 11/19/23 15:50 Pulse Rate 65 11/19/23 19:40 Respiratory Rate 16 11/19/23 22:08 Blood Pressure 127/78 11/19/23 22:08 Pulse Oximetry 95 11/19/23 22:08 Oxygen Delivery Me thod Room Air 11/19/23 22:08 MDM - Weakness Medical Decision Making Patient diagnostics as ordered reviewed. Patient has 2 negative troponins. Patient has 2 negative EKGs that show sinus rhythm with no acute ST changes or elevation noted. Patient labs show slight elevation of his baseline creatinine, elevated blood glucose and a nonspecific elevation of his lactic acid. Patient has no signs of sepsis or, or hypoxia. Patient is feeling better following IV fluids and his blood sugars improved to the 140s. Patient's x-ray shows no acute findings. Patient has benign physical exam. Patient declined the recheck of the lactic acid, this was a significant outlier on his labs with no significant findings. Since he is feeling better I will not repeat it and he will be discharged home. He should follow-up with his primary care provider in a couple days for recheck. He is stable upon discharge. Lab Data 11/19/23 16:15 11/19/23 16:15 Radiology Impressions Chest X-Ray 11/19/23 15:50 IMPRESSION: No acute findings. Laboratory Results WBC 10.86 10^3/uL (3.29-11.43) 11/19/23 16:15 RBC 4.48 10^6/uL (3.85-5.65) 11/19/23 16:15 Hgb 14.60 g/dL (11.27-16.99) 11/19/23 16:15 Hct 42.3 % (37-53) 11/19/23 16:15 MCV 94.4 fl (82-101) 11/19/23 16:15 MCH 32.6 pg (27-33) 11/19/23 16:15 MCHC 34.5 g/dL (30-55) 11/19/23 16:15 RDW 12.8 % (12.1-15.1) 11/19/23 16:15 Plt Count 167 10^3/cmm (157-399) 11/19/23 16:15 MPV 9.7 fL (7.4-10.4) 11/19/23 16:15 Neut % (Auto) 62.4 % 11/19/23 16:15 Lymph % (Auto) 26.2 % 11/19/23 16:15 [place] % (Auto) 6.9 % 11/19/23 16:15 Eos % (Auto) 3.5 % 11/19/23 16:15 Baso % (Auto) 0.5 % 11/19/23 16:15 Neut # (Auto) 6.78 10^3/uL (1.8-7.7) 11/19/23 16:15 Lymph # (Auto) 2.9 10^3/uL (0.8-4.8) 11/19/23 16:15 [place] # (Auto) 0.8 10^3/uL (0.2-0.9) 11/19/23 16:15 Eos # (Auto) 0.4 10^3/uL (0.0-0.8) 11/19/23 16:15 Baso # (Auto) 0.1 10^3/uL (0.0-0.1) 11/19/23 16:15 Nucleated RBC % (auto) 0 % 11/19/23 16:15 Nucleated RBCs # 0.0 /100WBC 11/19/23 16:15 Sodium 136 mmol/L (136-145) 11/19/23 16:15 Potassium 4.1 mmol/L (3.5-5.1) 11/19/23 16:15 Chloride 100 mmol/L (98-107) 11/19/23 16:15 Carbon Dioxide 22 mmol/L (22-29) 11/19/23 16:15 Anion Gap 18.1 (5-19) 11/19/23 16:15 BUN 16 mg/dL (8-23) 11/19/23 16:15 Creatinine 1.4 mg/dL (0.7-1.2) H 11/19/23 16:15 GFR Calculation 50.4 mL/min (90-130) L 11/19/23 16:15 Glucose 323 mg/dL (65-115) H 11/19/23 16:15 POC Glucose 144 mg/dL (70-110) H 11/19/23 22:05 Calculated Osmolality 296 mOsm/kg (285-295) H 11/19/23 16:15 Lactic Acid 4.0 mmol/L (0.5-2.2) H 11/19/23 16:15 Calcium 9.0 mg/dL (8.5-10.5) 11/19/23 16:15 Total Bilirubin 0.9 mg/dL (0.15-1.2) 11/19/23 16:15 AST 28 U/L (0-40) 11/19/23 16:15 ALT 35 U/L (0-41) 11/19/23 16:15 Alkaline Phosphatase 87 U/L (40-130) 11/19/23 16:15 Troponin T Baseline 10 ng/L (0-15) 11/19/23 16:15 Troponin T 120 Minute 8.06 ng/L (0-15) 11/19/23 18:30 Delta Troponin T -1.94 ABS# (0-10) L 11/19/23 18:30 C-Reactive Protein 3.0 mg/L (0.0-4.9) 11/19/23 16:15 NT-Pro-B Natriuret Pep 109 pg/mL (0-125) 11/19/23 16:15 Total Protein 6.8 g/dL (6.6-8.7) 11/19/23 16:15 Albumin 4.3 g/dL (3.5-5.2) 11/19/23 16:15 Globulin 2.5 g/dL (1.3-4.6) 11/19/23 16:15 Urine Color Yellow (Yellow) 11/19/23 19:35 Urine Appearance Clear (CLEAR) 11/19/23 19:35 Urine pH 5 (5-7) 11/19/23 19:35 Ur Specific [place] 1.020 (1.005-1.030) 11/19/23 19:35 Urine Protein Neg (Negative) 11/19/23 19:35 Urine Glucose (UA) 4+ (Normal) H 11/19/23 19:35 Urine Ketones Negative (Negative) 11/19/23 19:35 Urine Blood Neg (Negative) 11/19/23 19:35 Urine Nitrate Negative (Negative) 11/19/23 19:35 Urine Bilirubin Neg (Negative) 11/19/23 19:35 Urine Urobilinogen Norm mg/dL (Negative) 11/19/23 19:35 Ur Leukocyte Esterase Negative (Negative) 11/19/23 19:35 Urine RBC Rare /hpf (0-2) 11/19/23 19:35 Urine WBC None /hpf (0-5) 11/19/23 19:35 Ur Squamous Epith Cells 5-10 /hpf (0-5) H 11/19/23 19:35 Amorphous Sediment Not Reportable 11/19/23 19:35 Urine Bacteria None /hpf (NONE) 11/19/23 19:35 Urine Mucus None /hpf 11/19/23 19:35 Coronavirus (PCR) Negative (Negative) 11/19/23 19:35 Influenza A (PCR) Negative (Negative) 11/19/23 19:35 Influenza Type B (PCR) Negative (Negative) 11/19/23 19:35 RSV (PCR) Negative (Negative) 11/19/23 19:35 All radiology interpretation(s) finalized by discharge Discharge Plan Discharge Patient Disposition: Home Clinical Impression: Hyperglycemia due to type 2 diabetes mellitus Condition: Stable Prescriptions: No Action psyllium husk [Fiber (psyllium husk)] 0.4 gram capsule 0.4 g PO DAILY Qty: 30 0RF lisinopril 20 mg tablet 20 mg PO DAILY hydromorphone 4 mg tablet 4 mg PO Q6H PRN (Reason: Pain) Trulicity 0.75 mg/0.5 mL pen injector 0.75 mg SUBCUT DIRECTED Rx Instructions: (ON TUESDAYS) omeprazole 40 mg capsule,delayed release(DR/EC) 40 mg PO DAILY sertraline 50 mg Tablet 50 mg PO DAILY rosuvastatin 10 mg tablet 10 mg PO DAILY Protonix 40 mg tablet,delayed release (DR/EC) 40 mg PO DAILY Qty: 30 0RF ondansetron HCl 4 mg tablet 4 mg PO Q8H Qty: 60 0RF Discharge Orders: Discharge ED (Routine); Ordered 11/19/23 Ordered By: Etienne Bryan Referrals: [place],May, REAMING PRESS OPERATOR [Primary Care Provider] - Discharge Diet: Diabetic Discharge Activity: Resume usual activity Patient Instructions: Diabetic Hyperglycemia (ED), Opioid Safety, Pain Management Activity Restrictions/Additional Instructions: Please follow-up with your primary care provider to review your diabetic medications and to recheck your symptoms. Return to the ER with any concerns. Coding Level of Care Code ED Foot Miter Operator for Chg Fwd Related Data Home Medications Medication Instructions Recorded Confirmed hydromorphone 4 mg tablet 4 mg PO Q6H PRN Pain 07/29/19 11/02/22 lisinopril 20 mg tablet 20 mg PO DAILY 07/29/19 11/02/22 dulaglutide 0.75 mg/0.5 mL 0.75 mg SUBCUT DIRECTED 07/31/19 11/02/22 subcutaneous pen injector (Trulicity) omeprazole 40 mg capsule,delayed 40 mg PO DAILY 01/26/20 11/02/22 release rosuvastatin 10 mg tablet 10 mg PO DAILY 01/26/20 11/02/22 sertraline 50 mg tablet 50 mg PO DAILY 01/26/20 11/02/22 Previous Rx's Medication Instructions Recorded psyllium husk 0.4 gram capsule 0.4 g PO DAILY #30 caps 09/29/22 (Fiber (psyllium husk)) ondansetron HCl 4 mg tablet 4 mg PO Q8H #60 tabs 07/03/23 pantoprazole 40 mg tablet,delayed 40 mg PO DAILY #30 tabs 07/03/23 release (Protonix) Allergies Allergy/AdvReac Type Severity Reaction Status Date / Time sulfamethoxazole Allergy ALGY-Rash Verified 11/19/23 15:56 [From Bactrim] trimethoprim [From Bactrim] Allergy ALGY-Rash Verified 11/19/23 15:56
[2023-11-19 18:55] LABS: Troponin 5 2HR 8.06 ng/L (0-15)
[2023-11-19 18:59] LABS: Troponin 5 2HR Delta -1.94 ABS# (0-10)
[2023-11-19] MEDS: acetaminophen 325 mg Tablet 650 MG PO (19:32)
[2023-11-19] MEDS: sodium chloride 0.9% 1,000 ML 999 ML IV (19:32)
[2023-11-19 19:40] VITALS: BP 140/85; PULSE 65; RESP 16; O2SAT 96
[2023-11-19 19:58] LABS: Bilirubin Urine Neg (Negative); Blood Urine Neg (Negative); Glucose Urine UA 4+ (Normal); Ketones Urine Negative (Negative); Leukocyte Esterase Urine Negative (Negative); Nitrate Urine Negative (Negative); Protein Urine Neg (Negative); Urine Appearance Clear (CLEAR); Urine Color Yellow (Yellow); Urobilinogen Urine Norm (Negative); pH Urine 5 (5-7)
[2023-11-19 20:05] LABS: Add Urine Culture? No; RBC Urine RARE /hpf (0-2)
[2023-11-19 20:33] LABS: Covid PCR NEGATIVE (Negative); Influenza A NEGATIVE (Negative); Influenza B NEGATIVE (Negative); Respiratory Syncytial Virus Ce NEGATIVE (Negative)
[2023-11-19 21:11] VITALS: BP 118/72; RESP 16; O2SAT 96
[2023-11-19 22:08] VITALS: BP 127/78; RESP 16; O2SAT 95
[2023-11-19 22:08] LABS: Glucose Point of Care 144 mg/dL (70-110)
[2023-11-19 22:27] VITALS: BP 127/78; PULSE 85; RESP 16; O2SAT 96
--- NOTE | 2023-11-19 22:29 | PC.NURSE ---
md inquired about results for second lactic. have called and spoke with lab who states that patient refused second lactic to be drawn at that time and would only allow it when next trop was due. have relayed this to .
== END 2023-11-19 22:28 | disposition home or self-care (01) ==
PROVIDERS: Emergency Medicine; Emergency Provider Student in an Organized Health Care Education/Training Program; PCP Nurse Practitioner Family
DX: E11.65 Type 2 diabetes mellitus with hyperglycemia (principal); Z79.85 Long-term (current) use of injectable non-insulin antidiabetic drugs; I10 Essential (primary) hypertension; F17.220 Nicotine dependence, chewing tobacco, uncomplicated
CPT/HCPCS: 0241U; 36415; 36416; 71045; 80053; 81001; 82962; 83605; 83880; 84484; 85025; 86140; 87040; 93005; 99285; J7030

== ENCOUNTER 2024-05-14 11:47 | Outpatient (CLI) | payer MEDICARE, SELFPAY ==
--- NOTE | 2024-05-14 11:54 | XR_ITS ---
WS: [id number] Left knee, 3 views, 05/14/2024 Clinical Data: PAIN IN LEFT KNEE Comparison: None. Findings: No fractures or dislocations are seen. The joint spaces are normal. The patella is intact. There is an anterior superior spur of the left patella. The soft tissues are unremarkable. XR/XR knee LT 3V* [id number] Impression: Anterior superior left patellar spur.
== END 2024-05-14 11:48 | disposition home or self-care (01) ==
PROVIDERS: PCP Nurse Practitioner Family; Visit Provider Nurse Practitioner Family
DX: M25.562 Pain in left knee (principal); M19.90 Unspecified osteoarthritis, unspecified site; M76.892 Other specified enthesopathies of left lower limb, excluding foot
CPT/HCPCS: 73562

== ENCOUNTER → 2024-08-18 08:44 | Outpatient (BNVA) | payer MEDICARE, SELFPAY | PROVIDERS: PCP Nurse Practitioner Family; Referring Provider Nurse Practitioner Family; Visit Provider Anesthesiology Pain Medicine | DX: M54.9 Dorsalgia, unspecified (principal); M47.816 Spondylosis without myelopathy or radiculopathy, lumbar region | CPT/HCPCS: 99214 ==

== ENCOUNTER 2025-02-22 17:39 | Emergency (ER) | payer MEDICARE, SELFPAY ==
--- NOTE | 2025-02-22 17:44 | XRR_ITS ---
PROCEDURE INFORMATION: Exam: XR Chest Exam date and time: 02/22/2025 6:36 PM Age: 70 years old Clinical indication: Shortness of breath; C/O SOB. PT stated it has been going on for 4days. PT stated when he lays on his right side he is unable to breath at all. TECHNIQUE: Imaging protocol: Radiologic exam of the chest. Views: 1 view. COMPARISON: CR XR chest 1V portable [id number] 11/19/2023 4:05 PM FINDINGS: Tubes, catheters and devices: A thoracic stimulator device is in place. Lungs: Unremarkable. No consolidation. Pleural spaces: Unremarkable. No pleural effusion. No pneumothorax. Heart/Mediastinum: Unremarkable. No cardiomegaly. Bones/joints: Left shoulder replacement again noted. Soft tissues: Metallic nipple piercings are present. XR/XR chest 1V portable [id number] IMPRESSION: No acute findings.
--- OUTSIDE RECORDS SUMMARY | 2025-02-22 17:46 | XMS_ITS | Patient Health Record ---
Author Organization [facility] Address [address] [place] [address] Care Team Providers Care Stoneworking Sander Name Role Phone [place], [facility] Primary Care Provider PATRICIA Wilson Unavailable [phone] Allergies Allergen (clinical drug ingredient) Drug/Non Drug Allergy documented on EMR Reaction Allergy Type Onset Date Status cefdinir cefdinir , Eruption (morphologic abnormality) , Drug Allergy Active codeine Codeine , Drug Allergy Active sulfamethoxazole / trimethoprim Sulfamethoxazole/ Trimethoprim , Drug Allergy Active Reason For Referral No Information Medications Medication SIG (Take, Route, Frequency, Duration) Notes Start Date End Date Status Trulicity 0.75 MG/0.5ML as directed Subcutaneous Active Rosuvastatin rosuvastatin *Reorder from [facility] for eRx and Interaction Alerts* 11/19/2017 Active Solifenacin Succinate 5 mg TAKE ONE TABLET BY MOUTH EVERY DAY Orally Once a day; Duration: 90 days Active Levaquin *Pick strength-form from [facility] for eRX* Not-Taking Sertraline HCl 50 MG 1 tablet Orally Once a day Active Lisinopril 20 MG 1 tablet Orally Once a day Lisinopril 03/30/2017 Active Hydromorphone Hydromorphone *Reorder from [facility] for eRx and Interaction Alerts* 03/30/2017 Active Immunizations Vaccine Route Administration Date Status Comme nts Influenza (whole), CPT 65319 Inactive Unknown 09/04/2017 Administered Influenza (whole), CPT 28294 Inactive Unknown 11/26/2018 Administered Problems Problem Type SNOMED Code ICD Code Onset Dates Problem Status W/U Status Risk Notes Problem Chronic prostatitis (32325539) Chronic prostatitis (N41.1) Active confirmed Problem Lower urinary tract symptoms due to benign prostatic hypertrophy (49691101643198) Benign prostatic hyperplasia with lower urinary tract symptoms (N40.1) Active confirmed Problem Overactive urinary bladder (disorder) (640901711) OAB (overactive bladder) (N32.81) Active confirmed Problem History of nephrolithiasis (356063840) History of nephrolithiasis (Z87.442) Active confirmed Plan Of Treatment Pending Test Test Name Order Date PSA Diagnostic--81099 08/04/2021 PSA Diagnostic--97538 05/04/2022 PSA, TOTAL (5363) 03/12/2023 Insurance Providers Payer Name Payer Address Payer Phone Subscriber Number Group Number Insured Name Patient Relationship to Insured Coverage Start Date Coverage End Date [place] [address] JOELLEN CONN [id number] YARITZA TOLEDO Self - patient is the insured [place] Medicaid [address] [place], [place] [id number] YARITZA TOLEDO Self - patient is the insured Medical (General) History Medical History History ICD Code Anxiety Chronic back pain Depressive disorder Diabetes mellitus Hypertensive disorder, systemic arterial Obesity Surgical History Surgery Date(Month/Year) Lumbar fusion Left Shoulder replacement R knee replacement Hospitalization History Reason Date(Month/Year) UTI [facility] [place]/2022
--- OUTSIDE RECORDS SUMMARY | 2025-02-22 17:46 | XMS_ITS | Patient Health Record ---
Author Organization [facility] Address [address] [place] [address] Care Team Providers Care Art Educator Name Role Phone Ezequiel Kent [phone] Allergies Allergen (clinical drug ingredient) Drug/Non Drug Allergy documented on EMR Reaction Allergy Type Onset Date Status cefdinir cefdinir , Eruption (morphologic abnormality) , Drug Allergy Active codeine Codeine , Drug Allergy Active sulfamethoxazole / trimethoprim Sulfamethoxazole/ Trimethoprim , Drug Allergy Active Reason For Referral No Information Medications Medication SIG (Take, Route, Frequency, Duration) Notes Start Date End Date Status Trulicity 0.75 MG/0.5ML Solution Pen-injector as directed Subcutaneous Active Solifenacin Succinate 5 mg Tablet TAKE ONE TABLET BY MOUTH EVERY DAY Orally Once a day; Duration: 90 days Active Rosuvastatin rosuvastatin 11/19/2017 Act bibiana Hydromorphone Hydromorphone 03/30/2017 A ctive Lisinopril 20 MG Tablet 1 tablet Orally Once a day Lisinopril 03/30/2017 Active Sertraline HCl 50 MG Tablet 1 tablet Orally Once a day Active Levaquin Not-Taking Immunizations Vaccine Route Administration Date Status Comme nts Influenza (whole), CPT 51763 Inactive Unknown 09/04/2017 Administered Influenza (whole), CPT 94725 Inactive Unknown 11/26/2018 Administered Social History Tobacco Use: Social History Observation Description Date Details (start date - stop date) Unknown Social History Tobacco Use: Social Info Question Answer Notes xTobacco Use/Smoking Are you a Uses tobacco in othe r forms Additional Findings: Tobacco User Chews tobacco Additional Details Category Social Info Options Details Drugs/Alcohol: Do you smoke marijuana? De nies Do you drink alcohol? No Problems Problem Type SNOMED Code ICD Code Onset Dates Problem Status W/U Status Risk Notes Problem Chronic prostatitis (92324720) Chronic prostatitis (N41.1) Active confirmed Problem Lower urinary tract symptoms due to benign prostatic hypertrophy (41927384565724) Benign prostatic hyperplasia with lower urinary tract symptoms (N40.1) Active confirmed Problem Overactive urinary bladder (disorder) (684243241) OAB (overactive bladder) (N32.81) Active confirmed Problem History of nephrolithiasis (375587880) History of nephrolithiasis (Z87.442) Active confirmed Plan Of Treatment Pending Test Test Name Order Date PSA Diagnostic--97524 08/04/2021 Insurance Providers Payer Name Payer Address Payer Phone Subscriber Number Group Number Insured Name Patient Relationship to Insured Coverage Start Date Coverage End Date [place] Medicare [address] [place] [id number] YARITZA TOLEDO Self - patient is the insured [place] Medicaid [address] [place] [address] [id number] YARITZA TOLEDO Self - patient is the insured Medical (General) History Medical History History ICD Code Anxiety Chronic back pain Depressive disorder Diabetes mellitus Hypertensive disorder, systemic arterial Obesity Surgical History Surgery Date(Month/Year) R knee replacement Left Shoulder replacement Lumbar fusion Hospitalization History Reason Date(Month/Year) [place] [facility] [place]
[2025-02-22 17:50] VITALS: BP 145/78; PULSE 68; RESP 18; TEMP 36.6; O2SAT 99; BMI 34.9
--- NOTE | 2025-02-22 17:55 | ECG_ITS ---
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
--- NOTE | 2025-02-22 18:37 | ECG_ITS ---
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1955 Requested By: Sam Back Order Number: [id number] Salena MD: SHALONDA NEVAREZ Measurements Intervals [place] Rate: 58 P: 77 OR: 183 QRS: -32 QRSD: 86 T: 56 QT: 400 QTc: 394 Interpretive Statements SINUS BRADYCARDIA WITH SINUS ARRHYTHMIA LEFT AXIS DEVIATION [QRS AXIS < -30] Compared to ECG 02/22/2025 17:55:13 Sinus rhythm no longer present Ventricular premature complex(es) no longer present Electronically Signed On 02-24-2025 12:01:11 AVIONICS SAFETY INSPECTOR by SHALONDA NEVAREZ [id number]
[2025-02-22 18:39] VITALS: BP 151/90; PULSE 67; RESP 20; O2SAT 98
[2025-02-22 18:42] LABS: Hematocrit 46.3 % (37-53); Hemoglobin 15.70 g/dL (11.27-16.99); Mean Corpuscular HGB Conc 33.9 g/dL (30-55); Mean Corpuscular Hemoglobin 31.4 pg (27-33); Mean Corpuscular Volume 92.6 fl (82-101); Nucleated Red Blood Cells % 0 %; Platelet Count 178 10^3/cmm (157-399); Red Blood Count 5.00 10^6/uL (3.85-5.65); White Blood Count 10.96 10^3/uL (3.29-11.43)
--- NOTE | 2025-02-22 18:59 | W.ED.SOB ---
HPI - SOB/Dyspnea General: Chief Complaint: Shortness of Breath/Dyspnea Stated Complaint: SOB Time Seen by Provider: 02/22/25 18:24 History of Present Illness: HPI Narrative: Patient is a 70-year-old male with past medical history of hypertension, HLD, GERD, depression who presents with a four-day history of progressive shortness of breath, which is notably worse when lying down, particularly on the right side. The patient describes increased work of breathing and reports that last night was particularly severe. There is no recent history of fever, flu-like symptoms, or illness. The patient denies chest pain but notes a sensation of chest flutter and facial flushing during episodes of dyspnea. There is no known history of heart failure, arrhythmias, or prior blood clots. The patient has a light remote tobacco history but has been over 30 years. The patient also reports that their knee has been acting weird over the past few days. No recent long travel or prolonged immobility is reported. No use of inhalers or history of wheezing at home. Related Data Home Medications ?Medication ?Instructions ?Recorded ?Confirmed hydromorphone 4 mg tablet 4 mg PO Q6H PRN Pain 07/29/19 11/02/22 lisinopril 20 mg tablet 20 mg PO DAILY 07/29/19 11/02/22 dulaglutide 0.75 mg/0.5 mL 0.75 mg SUBCUT DIRECTED 07/31/19 11/02/22 subcutaneous pen injector (Trulicity) omeprazole 40 mg capsule,delayed 40 mg PO DAILY 01/26/20 11/02/22 release rosuvastatin 10 mg tablet 10 mg PO DAILY 01/26/20 11/02/22 sertraline 50 mg tablet 50 mg PO DAILY 01/26/20 11/02/22 cyclobenzaprine 10 mg tablet 10 mg PO BID PRN 08/18/24 08/18/24 Previous Rx's ?Medication ?Instructions ?Recorded psyllium husk 0.4 gram capsule 0.4 g PO DAILY #30 caps 09/29/22 (Fiber (psyllium husk)) ondansetron HCl 4 mg tablet 4 mg PO Q8H #60 tabs 07/03/23 pantoprazole 40 mg tablet,delayed 40 mg PO DAILY #30 tabs 07/03/23 release (Protonix) Allergies Allergy/AdvReac Type Severity Reaction Status Date / Time sulfamethoxazole (From Allergy ALGY-Rash Verified 08/18/24 08:57 Bactrim) trimethoprim (From Bactrim) Allergy ALGY-Rash Verified 08/18/24 08:57 Review of Systems General: Reports: 10 or more systems reviewed and unremarkable except in HPI and below PFSH ED PFSH: Medical History (Updated 02/22/25 @ 20:37 by Sam Back DO) Diabetes Hypertension Surgical History Knee joint replacement status Social History Smoking and tobacco/nicotine status: never used tobacco/nicotine Alcohol intake: never Substance/Drug Use: never Physical Exam Narrative: EXAM NARRATIVE: Patient well-appearing, afebrile, vital signs stable on arrival, no acute distress. Breath sounds mildly diminished but equal and present throughout, no wheezes or crackles, able to speak in full sentences without getting short of breath, no accessory muscle usage, no signs of respiratory distress. Abdomen protuberant but soft and nondistended, no overlying skin changes, bowel sounds intact, no CVA tenderness. Normal sinus rhythm with no murmurs, no leg swelling, good cap refill, 2+ pulses throughout. GCS 15, moving all 4 extremities symmetrically and spontaneously. Course Vital Signs: Vital signs: Vital Signs Temperature 97.8 F 02/22/25 17:50 Pulse Rate 63 02/22/25 20:51 Respiratory Rate 20 H 02/22/25 18:39 Blood Pressure 124/74 02/22/25 20:51 Pulse Oximetry 97 02/22/25 20:51 Oxygen Delivery Me thod Room Air 02/22/25 18:39 MDM - SOB/Dyspnea Medical Decision Making -ddx: URI, pneumonia, ACS, dysrhythmia, PE, CHF, COPD - Patient with 4 days of persistent shortness of breath, no recent infectious-like symptoms, no seeming cardiac history, remote tobacco history but does not take daily inhalers, no recent risk factors for PE, with nature of symptoms, will get cardiac infectious workup, including D-dimer and reevaluate, declining needing any medication at this time. - Patient with reassuring ED evaluation, negative chest x-ray for any pneumonia, effusions, vascular congestion, pneumothorax. ED workup relatively reassuring with no systemic signs of infection, no JUAREZ, no severe electrolyte abnormality, D-dimer negative so CTA PE not pursued. VBG was normal but indicated mild hypercarbia, has never been diagnosed with COPD and with his intermittent shortness of breath that worsens with lying thought this may be a component though not formally diagnosed and so he was given a trial of albuterol, has a PCP appointment tomorrow for further evaluation and so he was comfortable with discharge home, strict return precautions given. Lab Data 02/22/25 18:33 02/22/25 18:33 Labs/Radiology: Radiology Impressions Chest X-Ray 02/22/25 17:44 IMPRESSION: No acute findings. Laboratory Results WBC 10.96 10^3/uL (3.29-11.43) 02/22/25 18: RBC 5.00 10^6/uL (3.85-5.65) 02/22/25 18: Hgb 15.70 g/dL (11.27-16.99) 02/22/25 18:33 Hct 46.3 % (37-53) 02/22/25 18:33 MCV 92.6 fl (82-101) 02/22/25 18: MCH 31.4 pg (27-33) 02/22/25 18:33 MCHC 33.9 g/dL (30-55) 02/22/25 18:33 RDW 12.2 % (12.1-15.1) 02/22/25 18:33 Plt Count 178 10^3/cmm (157-399) 02/22/25 18:33 MPV 9.4 fL (7.4-10.4) 02/22/25 18:33 Neut % (Auto) 71.3 % 02/22/25 18:33 Lymph % (Auto) 18.3 % 02/22/25 18:33 [place] % (Auto) 7.1 % 02/22/25 18:33 Eos % (Auto) 2.6 % 02/22/25 18:33 Baso % (Auto) 0.3 % 02/22/25 18:33 Neut # (Auto) 7.82 10^3/uL (1.8-7.7) H 02/22/25 18:33 Lymph # (Auto) 2.0 10^3/uL (0.8-4.8) 02/22/25 18:33 [place] # (Auto) 0.8 10^3/uL (0.2-0.9) 02/22/25 18:33 Eos # (Auto) 0.3 10^3/uL (0.0-0.8) 02/22/25 18: Baso # (Auto) 0.0 10^3/uL (0.0-0.1) 02/22/25 18: Nucleated RBC % (auto) 0 % 02/22/25 18: Nucleated RBCs # 0.0 /100WBC 02/22/25 18: D-Dimer 0.42 ug/mLFEU (0-0.59) 02/22/25 18: Specimen Type Venous 02/22/25 18: [place] Test N/a 02/22/25 18:33 VBG pH 7.36 (7.32-7.42) 02/22/25 18: VBG pCO2 51.5 mmHg (41-51) H 02/22/25 18:33 VBG pO2 28.1 mmHg (25-40) 02/22/25 18: VBG HCO3 29.3 mmol/L (24-28) H 02/22/25 18:33 VBG Base Excess 2.6 mmol/L (-3.0-3.0) 02/22/25 18: VBG Hematocrit 50.5 % (42-52) 02/22/25 18:33 O2 Delivery Device Na 02/22/25 18:33 Rotor Balancer ID [email or web address] 02/22/25 18:33 Sodium 140 mmol/L (136-145) 02/22/25 18:33 Potassium 4.7 mmol/L (3.5-5.1) 02/22/25 18: Chloride 102 mmol/L (98-107) 02/22/25 18: Carbon Dioxide 26 mmol/L (22-29) 02/22/25 18:33 Anion Gap 16.7 (5-19) 02/22/25 18:33 BUN 13 mg/dL (8-23) 02/22/25 18: Creatinine 1.1 mg/dL (0.7-1.2) 02/22/25 18:33 GFR Calculation 66.2 mL/min (90-130) L 02/22/25 18:33 Glucose 153 mg/dL (65-115) H 02/22/25 18:33 Calculated Osmolality 293 mOsm/kg (285-295) 02/22/25 18:33 Calcium 9.4 mg/dL (8.5-10.5) 02/22/25 18: Phosphorus 3.6 mg/dL (2.5-4.5) 02/22/25 18: Magnesium 2.1 mg/dL (1.7-2.3) 02/22/25 18:33 Total Bilirubin 1.1 mg/dL (0.15-1.2) 02/22/25 18:33 AST 28 U/L (0-40) 02/22/25 18:33 ALT 40 U/L (0-41) 02/22/25 18:33 Alkaline Phosphatase 97 U/L (40-130) 02/22/25 18:33 Troponin T Baseline 13 ng/L (0-15) 02/22/25 18:33 Troponin T 60 Minute 12.02 ng/L (0-15) 02/22/25 19:40 Delta Troponin T -0.98 ABS# (0-10) L 02/22/25 19:40 C-Reactive Protein 3.0 mg/L (0.0-4.9) 02/22/25 18:33 NT-Pro-B Natriuret Pep 102 pg/mL (0-125) 02/22/25 18:33 Total Protein 6.7 g/dL (6.6-8.7) 02/22/25 18:33 Albumin 4.4 g/dL (3.5-5.2) 02/22/25 18:33 Globulin 2.3 g/dL (1.3-4.6) 02/22/25 18:33 Influenza A (PCR) Negative (Negative) 02/22/25 18:39 Influenza Type B (PCR) Negative (Negative) 02/22/25 18:39 RSV (PCR) Negative (Negative) 02/22/25 18:39 SARS-CoV-2 (PCR) Negative (Negative) 02/22/25 18:39 All radiology interpretation(s) finalized by discharge Discharge Plan Discharge Patient Disposition: Home Clinical Impression: Mild shortness of breath Condition: Stable Prescriptions: No Action cyclobenzaprine 10 mg tablet 10 mg PO BID PRN psyllium husk [Fiber (psyllium husk)] 0.4 gram capsule 0.4 g PO DAILY Qty: 30 0RF lisinopril 20 mg tablet 20 mg PO DAILY hydromorphone 4 mg tablet 4 mg PO Q6H PRN (Reason: Pain) Trulicity 0.75 mg/0.5 mL pen injector 0.75 mg SUBCUT DIRECTED Rx Instructions: (ON TUESDAYS) omeprazole 40 mg capsule,delayed release(DR/EC) 40 mg PO DAILY sertraline 50 mg Tablet 50 mg PO DAILY rosuvastatin 10 mg tablet 10 mg PO DAILY Protonix 40 mg tablet,delayed release (DR/EC) 40 mg PO DAILY Qty: 30 0RF ondansetron HCl 4 mg tablet 4 mg PO Q8H Qty: 60 0RF Discharge Orders: Discharge ED (Routine); Ordered 02/22/25 Ordered By: Sam Back Referrals: [facility], [employer]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 You did not have any evidence of a pneumonia, concerns with your heart, blood clot or your electrolytes. 1 your blood test suggested that you might have mild COPD and so when these episodes occur at home, it would be reasonable to try using the albuterol inhaler 1 to 2 puffs every 4-6 hours as needed. Further discuss your symptoms tomorrow. Return to the ED with severe worsening of your breathing, chest pains, episodes of passing out, fevers, any other emergent concerns. And possible treatments with your primary care at your appointment Print Language: Georgian Coding Level of Care Code ED Boom Boss for Liane Xavier
[2025-02-22 19:02] LABS: Base Excess VBG 2.6 mmol/L (-3.0-3.0); Blood Gas Sample Type Venous; HCO3 VBG 29.3 mmol/L (24-28); PCO2 VBG 51.5 mmHg (41-51); PO2 VBG 28.1 mmHg (25-40); Venous Blood Gas Hematocrit 50.5 % (42-52); pH VBG 7.36 (7.32-7.42)
[2025-02-22 19:04] LABS: Troponin(5th) Baseline 13 ng/L (0-15)
[2025-02-22 19:21] LABS: Respiratory Syncytial Virus Ce NEGATIVE (Negative); SARS-CoV-2 PCR NEGATIVE (Negative)
[2025-02-22 19:48] LABS: Alanine Aminotransferase 40 U/L (0-41); Albumin Level 4.4 g/dL (3.5-5.2); Alkaline Phosphatase 97 U/L (40-130); Anion Gap 16.7 (5-19); Aspartate Amino Transferase 28 U/L (0-40); Blood Urea Nitrogen 13 mg/dL (8-23); Calcium 9.4 mg/dL (8.5-10.5); Carbon Dioxide 26 mmol/L (22-29); Chloride 102 mmol/L (98-107); Globulin 2.3 g/dL (1.3-4.6); Glucose 153 mg/dL (65-115); Magnesium 2.1 mg/dL (1.7-2.3); Osmolality Calculated 293 mOsm/kg (285-295); Potassium 4.7 mmol/L (3.5-5.1); Sodium 140 mmol/L (136-145); Total Protein 6.7 g/dL (6.6-8.7)
[2025-02-22 19:53] LABS: NT Pro B Type Natriuretic Pept 102 pg/mL (0-125)
[2025-02-22 20:09] VITALS: BP 124/74; PULSE 63; O2SAT 97
[2025-02-22 20:51] VITALS: BP 124/74; PULSE 63; O2SAT 97
== END 2025-02-22 21:19 | disposition home or self-care (01) ==
PROVIDERS: Emergency Medicine; Emergency Provider Student in an Organized Health Care Education/Training Program; PCP Nurse Practitioner Family
DX: R06.02 Shortness of breath (principal); Z11.52 Encounter for screening for COVID-19; Z79.85 Long-term (current) use of injectable non-insulin antidiabetic drugs; E11.9 Type 2 diabetes mellitus without complications; I10 Essential (primary) hypertension
CPT/HCPCS: 36415; 71045; 80053; 82803; 83735; 83880; 84100; 84484; 85025; 85378; 86140; 87637; 93005; 99285; J3535